=== PATIENT | male | born 1955 | race American Indian/Alaskan Native ===

== ENCOUNTER 2017-07-08 16:38 | Inpatient (IN) | payer OTHER ==
[2017-07-08] MEDS ORDERED: NACL 0.9% 500 ML 500 ML IV ONE (17:56)
[2017-07-08] MEDS ORDERED: NACL 0.9% 1000 ML 1,000 ML ONE (18:09)
[2017-07-08] MEDS ORDERED: VANCOMYCIN/NS 1 GM/250 ML 1 GM/250 ML BAG IV ONE (18:22)
[2017-07-08] MEDS ORDERED: ZOSYN/NS 4.5GM/100ML 4.5 GM/100 ML VIAL IV ONE (18:22)
[2017-07-08] MEDS ORDERED: NACL 0.9% 1000 ML 2,000 ML ONE (18:25)
[2017-07-08 18:31] LABS: Hematocrit 29.8 % (35.5-45.6); Hemoglobin 9.6 gm/dl (11.8-15.2); Mean Corpuscular HGB Conc 32 % (32-34); Mean Corpuscular Hemoglobin 31 pg (28-32); Mean Corpuscular Volume 95 fl (84-94); Platelet Count 334 K/mm3 (140-440); Red Blood Count 3.13 M/mm3 (3.65-5.03); Red Cell Distribution Width 14.4 % (13.2-15.2)
[2017-07-08 18:32] LABS: INR 1.3 (0.87-1.13)
[2017-07-08 18:33] LABS: Albumin 2.4 g/dL (3.9-5); Calcium 8.2 mg/dL (8.4-10.2)
--- NOTE | 2017-07-08 18:48 | Emergency Department Report ---
ED General Adult HPI - General Chief complaint: Abdominal Pain Stated complaint: POST OP PAIN Time Seen by Provider: 07/08/17 18:22 Source: patient, EMS Mode of arrival: Stretcher Limitations: Physical Limitation - History of Present Illness Initial comments: Presents with abdominal pain and fecal drainage from the surgical wound. According to the patient that started earlier today. He was recently discharged from the hospital after undergoing a open laparotomy for a right inguinal hernia with small bowel obstruction. At the time of surgery, it was found that the patient had a gangrenous small bowel, which required partial small bowel resection. Patient has endorsed worsening abdominal pain. The patient is a poor historian. Severity scale (0 -10): 10 - Related Data Previous Rx's Medication Instructions Recorded Last Taken Type Cephalexin [Keflex] 500 mg PO Q12HR #6 cap 07/07/17 Unknown Rx Nicotine [Habitrol] 14 mg TD QDAY #30 patch 07/07/17 Unknown Rx oxyCODONE /ACETAMINOPHEN [Percocet 1 tab PO Q12H PRN #6 tablet 07/07/17 Unknown Rx 5/325] Allergies Allergy/AdvReac Type Severity Reaction Status Date / Time No Known Allergies Allergy Unverified 06/29/17 14:29 ED Review of Systems ROS: Stated complaint: POST OP PAIN Other details as noted in HPI Comment: All other systems reviewed and negative Constitutional: malaise, weakness Gastrointestinal: abdominal pain, nausea, vomiting ED Past Medical Hx - Past Medical History Hx Hypertension: No Hx Diabetes: No Hx Arthritis: No - Surgical History Additional Surgical History: Abd surgery - Social History Smoking Status: Former Smoker Substance Use Type: None - Medications Home Medications: Home Medications Medication Instructions Recorded Confirmed Last Taken Type Cephalexin [Keflex] 500 mg PO Q12HR #6 cap 07/07/17 Unknown Rx Nicotine [Habitrol] 14 mg TD QDAY #30 patch 07/07/17 Unknown Rx oxyCODONE /ACETAMINOPHEN [Percocet 1 tab PO Q12H PRN #6 tablet 07/07/17 Unknown Rx 5/325] ED Physical Exam - General Limitations: Physical Limitation General appearance: alert, in no apparent distress - Head Head exam: Present: atraumatic, normocephalic - Eye Eye exam: Present: normal appearance - ENT ENT exam: Present: mucous membranes moist - Neck Neck exam: Present: normal inspection - Respiratory Respiratory exam: Present: normal lung sounds bilaterally. Absent: respiratory distress - Cardiovascular Cardiovascular Exam: Present: regular rate, normal rhythm. Absent: systolic murmur, diastolic murmur, rubs, gallop - GI/Abdominal GI/Abdominal exam: Present: soft, distended, tenderness (multiple retention sutures in place. Fecal drainage come from inferior laparotomy site. Rt inguinal /testicular swelling with tenderness) - Rectal Rectal exam: Present: deferred - exam: Present: testicular tenderness, scrotal swelling, circumcision - Extremities Exam Extremities exam: Present: normal inspection - Back Exam Back exam: Present: normal inspection - Neurological Exam Neurological exam: Present: alert, oriented X3 - Psychiatric Psychiatric exam: Present: normal affect, normal mood - Skin Skin exam: Present: warm, dry, intact, normal color. Absent: rash ED Course Vital Signs 07/08/17 07/08/17 07/08/17 17:33 17:45 17:46 Temperature 97.8 F Pulse Rate 126 H 130 H Respiratory 21 27 H 26 H Rate Blood Pressure 81/53 86/49 Blood Pressure 81/53 [Right] O2 Sat by Pulse 99 Oximetry 07/08/17 07/08/17 07/08/17 18:49 18:55 19:55 Temperature Pulse Rate 112 H 107 H Respiratory 26 H Rate Blood Pressure Blood Pressure 92/57 82/55 [Right] O2 Sat by Pulse 100 Oximetry 07/08/17 07/08/17 07/08/17 20:55 21:55 22:55 Temperature 98.5 F Pulse Rate 106 H 107 H 109 H Respiratory 20 Rate Blood Pressure Blood Pressure 95/55 92/43 84/42 [Right] O2 Sat by Pulse 99 Oximetry ED Medical Decision Making - Lab Data Result diagrams: 07/08/17 18:05 07/08/17 18:05 - Radiology Data Radiology results: report reviewed, image reviewed - Medical Decision Making 61-year-old male with recent abdominal surgery but presents to the ER with abdominal pain and wound drainage. Patient's hypertensive on presentation with tachycardia. Likely is septic from a severe wound infection. Due to the feculent drainage from surgical wound, I'm concerned for a bowel perforation. He was given IVF/ABX. Lab work shows elevated white count 60. CT shows concerns for large pelvic abscess versus unopacified bowel. I believe this to be an abscess given the patient's septic presentation and white count of 60. I talked with Dr. Lopez, who recommended antibiotics, resuscitation, and admission to the ICU for further management. I talked to the hospitalist who wanted the surgeon to come in urgently see the patient. Dr. Lopez mentioned since the patient is stable at this time, he does not see a need to come in emergently. On re-evaluation, patient was resting comfortably with an improving heart rate. He will be admitted for further management. He remained hemodynamically stable while in the ER. He was given thorazine for his hiccups. Problem list: severe sepsis, pelvic abscess, leukocytosis, metabolic acidosis, dehydration, hiccups. - Differential Diagnosis sepsis, bowel perforation vs obstruction, cellulitis, abscess Critical Care Time: Yes Critical care attestation.: If time is entered above; I have spent that time in minutes in the direct care of this critically ill patient, excluding procedure time. Critical Care Time: 62 ED Disposition Clinical Impression: Severe sepsis, Post-operative complication, Intra-abdominal abscess post- procedure Disposition: [id number] OP ADMIT IP TO THIS HOSP Is pt being admited?: Yes Does the pt Need Aspirin: No Condition: Stable
--- NOTE | 2017-07-08 19:03 | XRay Report ---
FINAL REPORT PROCEDURE: Chest. TECHNIQUE: Portable AP view. HISTORY: Possible sepsis. COMPARISON: Chest 07/02/2017. FINDINGS: The heart and mediastinum appear normal. The lungs are clear and well expanded. There are no pleural effusions. The soft tissues are unremarkable. There is an old fracture of the right 4th rib. IMPRESSION: No evidence of acute cardiopulmonary disease.
[2017-07-08 19:43] LABS: Band Neutrophils # (Manual) 13.8 K/mm3; Basophils % (Manual) 0 % (0.0-1.8); Eosinophils % (Manual) 0 % (0.0-4.3); Monocytes % (Manual) 2.5 % (0.0-7.3); Total Cells Counted 200
[2017-07-08 19:44] LABS: Hypochromasia 1+; Ovalocytes Few; Platelet Estimate Consistent w Auto
--- NOTE | 2017-07-08 20:47 | Cat Scan Report ---
FINAL REPORT PROCEDURE: CT abdomen and pelvis with contrast. TECHNIQUE: Computerized axial tomography of the abdomen and pelvis was performed after the IV injection of iodinated nonionic contrast. HISTORY: Abdominal pain with fecal discharge through surgical wound. COMPARISON: CT abdomen and pelvis 06/30/2017. FINDINGS: The lung bases are clear. There are no pleural effusions. The heart size is normal. The liver, pancreas and spleen appear normal. The gallbladder is present. The adrenal glands are not enlarged. Both kidneys appear normal in size and configuration. The abdominal aorta has a normal caliber. There is no retroperitoneal adenopathy. The patient has had interval abdominal surgery. There are new midline and right lower quadrant oblique skin glo. There is still a large right inguinal canal hernia extending into the scrotum. There is no definite intestinal obstruction. Oral contrast was not given. This makes evaluation of fluid in the pelvis difficult. There are new intestinal anastomotic glo in the pelvis. There is a large fluid and air containing collection superior to the bladder. This is close to surgical glo. I am uncertain whether this represents nonopacified bowel or if this might represent a large pelvic abscess. Clinical correlation or repeat imaging following adequate oral contrast administration is suggested. There is a very tiny amount of pneumoperitoneum present which may simply represent recent surgery. The bladder, seminal vesicles and prostate are unremarkable. The regional skeleton appears intact. IMPRESSION: Continued or recurrent large right inguinal canal hernia extending into the scrotum. Possible large pelvic abscess versus unopacified bowel loop.
[2017-07-08] MEDS ORDERED: THORAZINE 25 MG in NACL 0.9% 50 ML IV ONE (21:08)
[2017-07-08] MEDS ORDERED: NACL 0.9% 100 ML ONE (21:23)
[2017-07-08] MEDS ORDERED: THORAZINE ONE (21:23)
[2017-07-08] MEDS ORDERED: NACL 0.9% 1000 ML 1,000 ML IV SCH (23:00)
[2017-07-08] MEDS ORDERED: SODIUM CHLORIDE FLUSH SYRINGE 10 ML IV PRN (23:08)
[2017-07-08] MEDS ORDERED: NACL 0.9% 1000 ML 1,000 ML IV ONE (23:24)
--- NOTE | 2017-07-08 23:32 | History and Physical Report ---
History of Present Illness Date of examination: 07/08/17 Chief complaint: "my wound opened up" History of present illness: Patient is a 61 year old -[place] male who presented to the ED on account of foul smelling drainage from his surgical wound on his abdomen. The patient was discharged from the hospital yesterday after undergoing open laparotomy for a right inguinal hernia with small bowel obstruction. At the time of surgery, it was found that the patient had a gangrenous small bowel, for which he underwent partial small bowel resection. He has associated generalized abdominal pain and generalized weakness. He denies nausea, vomiting , constipation or diarrhea. No fever, chills, chest pain, shortness of breath or palpitations. Past History Past Medical History: other (right inguinal hernia with small bowel obstruction) Past Surgical History: Other (recent open laparotomy with partial small bowel resection) Social history: smoking (ex-smoker for 40 years, quit 1 week ago. He denies alcohol or illicit drug use) Family history: other (reviewed and noncontributory) Medications and Allergies Allergies Allergy/AdvReac Type Severity Reaction Status Date / Time No Known Allergies Allergy Unverified 06/29/17 14:29 Home Medications Medication Instructions Recorded Confirmed Last Taken Type Cephalexin [Keflex] 500 mg PO Q12HR #6 cap 07/07/17 Unknown Rx Nicotine [Habitrol] 14 mg TD QDAY #30 patch 07/07/17 Unknown Rx oxyCODONE /ACETAMINOPHEN [Percocet 1 tab PO Q12H PRN #6 tablet 07/07/17 Unknown Rx 5/325] Active Meds: Active Medications Sodium Chloride (Nacl 0.9% 1000 Ml) 1,000 mls @ 125 mls/hr IV DIRECT RADHA Last Admin: 07/08/17 23:18 Dose: 125 mls/hr Metronidazole (Flagyl 500 Mg/100 Ml) 500 mg in 100 mls @ 100 mls/hr IV Q8H RADHA Sodium Chloride (Nacl 0.9% 1000 Ml) 1,000 mls @ 999 mls/hr IV BOLUS ONE Stop: 07/09/17 00:24 Cefepime HCl 2 gm/ Sodium (Chloride) 20 mls @ 2 mls/min IV Q24HR RADHA Sodium Chloride (Sodium Chloride Flush Syringe 10 Ml) 10 ml IV BID RADHA Sodium Chloride (Sodium Chloride Flush Syringe 10 Ml) 10 ml IV PRN PRN PRN Reason: LINE FLUSH Vancomycin HCl (Vancomycin Pharmacy To Dose) 1 each IV PKCONSULT RADHA; Protocol Review of Systems All systems: negative (except as documented in the HPI, all other systems were reviewed and negative) Exam - Constitutional Vitals: Temp Pulse Resp BP Pulse Ox 98.5 F 109 H 20 84/42 99 07/08/17 22:55 07/08/17 22:55 07/08/17 22:55 07/08/17 22:55 07/08/17 22:55 General appearance: Present: no acute distress, other (ill looking) - EENT Eyes: Present: PERRL, EOM intact ENT: hearing intact, clear oral mucosa - Neck Neck: Present: supple, normal ROM - Respiratory Respiratory effort: normal Respiratory: bilateral: CTA - Cardiovascular Rhythm: other (tachycardia with regular rhythm) Heart Sounds: Present: S1 & S2. Absent: rub, click - Extremities Extremities: pulses symmetrical, No edema Peripheral Pulses: within normal limits - Abdominal General gastrointestinal: Present: soft, tender (generalized), distended, normal bowel sounds, other (foul smelling discharge from the surgical site) Male genitourinary: Present: scrotal edema - Integumentary Integumentary: Present: erythema (with drainage from abdominal surgical wound) - Musculoskeletal Musculoskeletal: other (generalized weakness) - Psychiatric Psychiatric: appropriate mood/affect, intact judgment & insight - Neurologic Neurologic: CNII-XII intact Results - Labs CBC & Chem 7: 07/08/17 18:05 07/08/17 18:05 Labs: Laboratory Last Values WBC 58.7 K/mm3 (4.5-11.0) H* 07/08/17 18:05 RBC 3.13 M/mm3 (3.65-5.03) L 07/08/17 18:05 Hgb 9.6 gm/dl (11.8-15.2) L 07/08/17 18:05 Hct 29.8 % (35.5-45.6) L 07/08/17 18:05 MCV 95 fl (84-94) H 07/08/17 18:05 MCH 31 pg (28-32) 07/08/17 18:05 MCHC 32 % (32-34) 07/08/17 18:05 RDW 14.4 % (13.2-15.2) 07/08/17 18:05 Plt Count 334 K/mm3 (140-440) 07/08/17 18:05 Add Manual Diff Complete 07/08/17 18:05 Total Counted 200 07/08/17 18:05 Seg Neutrophils % Eligibility Worker 07/08/17 18:05 Seg Neuts % (Manual) 70.5 % (40.0-70.0) H 07/08/17 18:05 Band Neutrophils % 23.5 % 07/08/17 18:05 Lymphocytes % (Manual) 2.5 % (13.4-35.0) L 07/08/17 18:05 Reactive Lymphs % (Man) 0 % 07/08/17 18:05 Monocytes % (Manual) 2.5 % (0.0-7.3) 07/08/17 18:05 Eosinophils % (Manual) 0 % (0.0-4.3) 07/08/17 18:05 Basophils % (Manual) 0 % (0.0-1.8) 07/08/17 18:05 Metamyelocytes % 1.0 % 07/08/17 18:05 Myelocytes % 0 % 07/08/17 18:05 Promyelocytes % 0 % 07/08/17 18:05 Blast Cells % 0 % 07/08/17 18:05 Nucleated RBC % Not Reportable 07/08/17 18:05 Seg Neutrophils # Man 41.4 K/mm3 (1.8-7.7) H 07/08/17 18:05 Band Neutrophils # 13.8 K/mm3 07/08/17 18:05 Lymphocytes # (Manual) 1.5 K/mm3 (1.2-5.4) 07/08/17 18:05 Abs React Lymphs (Man) 0.0 K/mm3 07/08/17 18:05 Monocytes # (Manual) 1.5 K/mm3 (0.0-0.8) H 07/08/17 18:05 Eosinophils # (Manual) 0.0 K/mm3 (0.0-0.4) 07/08/17 18:05 Basophils # (Manual) 0.0 K/mm3 (0.0-0.1) 07/08/17 18:05 Metamyelocytes # 0.6 K/mm3 07/08/17 18:05 Myelocytes # 0.0 K/mm3 07/08/17 18:05 Promyelocytes # 0.0 K/mm3 07/08/17 18:05 Blast Cells # 0.0 K/mm3 07/08/17 18:05 WBC Morphology Not Reportable 07/08/17 18:05 Hypersegmented Neuts Not Reportable 07/08/17 18:05 Hyposegmented Neuts Not Reportable 07/08/17 18:05 Hypogranular Neuts Not Reportable 07/08/17 18:05 Smudge Cells Not Reportable 07/08/17 18:05 Toxic Granulation Not Reportable 07/08/17 18:05 Toxic Vacuolation Not Reportable 07/08/17 18:05 Dohle Bodies Not Reportable 07/08/17 18:05 Pelger-Huet Anomaly Not Reportable 07/08/17 18:05 Winter Rods Not Reportable 07/08/17 18:05 Platelet Estimate Consistent w auto 07/08/17 18:05 Clumped Platelets Not Reportable 07/08/17 18:05 Plt Clumps, EDTA Not Reportable 07/08/17 18:05 Large Platelets Not Reportable 07/08/17 18:05 Giant Platelets Not Reportable 07/08/17 18:05 Platelet Satelliting Not Reportable 07/08/17 18:05 Plt Morphology Comment Not Reportable 07/08/17 18:05 RBC Morphology Not Reportable 07/08/17 18:05 Dimorphic RBCs Not Reportable 07/08/17 18:05 Polychromasia Not Reportable 07/08/17 18:05 Hypochromasia 1+ 07/08/17 18:05 Poikilocytosis Not Reportable 07/08/17 18:05 Anisocytosis Not Reportable 07/08/17 18:05 Microcytosis Not Reportable 07/08/17 18:05 Macrocytosis Not Reportable 07/08/17 18:05 Spherocytes Not Reportable 07/08/17 18:05 Pappenheimer Bodies Not Reportable 07/08/17 18:05 Sickle Cells Not Reportable 07/08/17 18:05 Target Cells Not Reportable 07/08/17 18:05 Tear Drop Cells Not Reportable 07/08/17 18:05 Ovalocytes Few 07/08/17 18:05 Helmet Cells Not Reportable 07/08/17 18:05 [place] Bodies Not Reportable 07/08/17 18:05 [place] Rings Not Reportable 07/08/17 18:05 Rigoberto Cells Not Reportable 07/08/17 18:05 Bite Cells Not Reportable 07/08/17 18:05 Crenated Cell Not Reportable 07/08/17 18:05 Elliptocytes Not Reportable 07/08/17 18:05 Acanthocytes (Spur) Not Reportable 07/08/17 18:05 Rouleaux Not Reportable 07/08/17 18:05 Hemoglobin C Crystals Not Reportable 07/08/17 18:05 Schistocytes Not Reportable 07/08/17 18:05 Malaria parasites Not Reportable 07/08/17 18:05 Erasmo Bodies Not Reportable 07/08/17 18:05 Hem Pathologist Commnt No 07/08/17 18:05 PT 16.9 Sec. (12.2-14.9) H 07/08/17 18:05 INR 1.30 (0.87-1.13) H 07/08/17 18:05 VBG pH 7.443 (7.320-7.420) H 07/08/17 18:05 Sodium 138 mmol/L (137-145) D 07/08/17 18:05 Potassium 4.1 mmol/L (3.6-5.0) 07/08/17 18:05 Chloride 96.2 mmol/L (98-107) L 07/08/17 18:05 Carbon Dioxide 19 mmol/L (22-30) L 07/08/17 18:05 Anion Gap 27 mmol/L 07/08/17 18:05 BUN 29 mg/dL (9-20) H 07/08/17 18:05 Creatinine 1.9 mg/dL (0.8-1.5) H D 07/08/17 18:05 Estimated GFR 44 ml/min 07/08/17 18:05 BUN/Creatinine Ratio 15 % 07/08/17 18:05 Glucose 143 mg/dL (75-100) H 07/08/17 18:05 Lactic Acid 1.50 mmol/L (0.7-2.0) 07/08/17 22:35 Calcium 8.2 mg/dL (8.4-10.2) L 07/08/17 18:05 Total Bilirubin 1.40 mg/dL (0.1-1.2) H 07/08/17 18:05 AST 60 units/L (5-40) H 07/08/17 18:05 ALT 33 units/L (7-56) 07/08/17 18:05 Alkaline Phosphatase 119 units/L (35-129) 07/08/17 18:05 Total Protein 6.1 g/dL (6.3-8.2) L 07/08/17 18:05 Albumin 2.4 g/dL (3.9-5) L 07/08/17 18:05 Albumin/Globulin Ratio 0.6 % 07/08/17 18:05 - Imaging and Cardiology CT scan - abdomen: report reviewed CT scan - chest: report reviewed Assessment and Plan Assessment and plan: Postsurgical complications with pelvic abscess and wound dehiscence -Patient will be placed on IV broad-spectrum antibiotics -Will follow up blood culture results -urgent consult was placed in the ED for the surgeon Heather Howard Severe sepsis secondary to the pelvic abscess -patient placed on sepsis protocol -Will follow up blood and urine culture results. Hypotension secondary to the sepsis -Patient's blood pressure responded to IV hydration -He will be continued on maintenance IV fluid with blood pressure monitoring. Recurrent right inguinal hernia -The surgeon has been consulted. Transaminitis likely secondary to sepsis -Will continue to monitor his liver function test levels Acute kidney injury -Patient will be placed on IV fluid, will monitor his creatinine level Acute anemia -WIll monitor his H/H and transfuse as needed. Prophylaxis -DVT prophylaxis with SCD and GI prophylaxis with Protonix I spent 45 minutes providing critical care to this seriously ill patient who requires frequent reassessments of his cardiovascular status.
[2017-07-08] MEDS: FLAGYL 500 MG/100 ML 500 MG/100 ML BAG IV SCH (23:38)
[2017-07-08] MEDS ORDERED: VANCOMYCIN PHARMACY TO DOSE IV SCH (23:45)
[2017-07-09] MEDS ORDERED: NACL 0.9% 500 ML 500 ML ONE (02:50)
[2017-07-09] MEDS ORDERED: MAXIPIME/NS 2 GM/100 ML 2 GM/100 ML BAG IV SCH ×2 (06:00→10:00)
[2017-07-09 07:09] LABS: Hematocrit 25.1 % (35.5-45.6); Hemoglobin 8.2 gm/dl (11.8-15.2); Mean Corpuscular HGB Conc 33 % (32-34); Mean Corpuscular Hemoglobin 31 pg (28-32); Mean Corpuscular Volume 95 fl (84-94); Platelet Count 322 K/mm3 (140-440); Red Blood Count 2.66 M/mm3 (3.65-5.03); Red Cell Distribution Width 14.9 % (13.2-15.2)
[2017-07-09 07:23] LABS: Alanine Aminotransferase 28 units/L (7-56); Albumin 2.1 g/dL (3.9-5); BUN/Creatinine Ratio 25; Blood Urea Nitrogen 27 mg/dL (9-20); Calcium 6.9 mg/dL (8.4-10.2); Hemolysis Index 0
[2017-07-09] MEDS ORDERED: FLAGYL 500 MG/100 ML 500 MG/100 ML BAG IV ONE ×2 (07:51→15:27)
[2017-07-09] MEDS: FLAGYL 500 MG/100 ML 500 MG/100 ML BAG IV SCH ×2 (08:10→15:57)
[2017-07-09 08:30] LABS: Band Neutrophils # (Manual) 0.9 K/mm3; Basophils % (Manual) 0 % (0.0-1.8); Eosinophils % (Manual) 0 % (0.0-4.3); Monocytes % (Manual) 4.5 % (0.0-7.3); Total Cells Counted 200
[2017-07-09 08:31] LABS: Hypochromasia 1+; Ovalocytes Few; Platelet Estimate Consistent w Auto
--- NOTE | 2017-07-09 09:15 | Consultation ---
HISTORY OF PRESENT ILLNESS: This is a well-known case to me. He was in this hospital about 2 weeks ago. At that point, he came with incarcerated huge right scrotal hernia. He was taken to the operating room where he underwent exploratory laparotomy and he had about 100 cm length of intestines that showed gangrenous changes requiring resection. I repaired the hernia. I did not put a graft there. Postoperatively, the patient was doing excellent, doing fine, walking around, taking his diet and on liquids and then this was advanced to full liquids. He had good bowel movements. The man was discharged home 2 days ago to be seen in my office in 1 week and the nurse to see him every day at home. Apparently, he had some leakage from his drain site. The leakage showed questionable some fecal material. The leakage was mainly of very thin liquid and it is mainly from the area of the drain in the right lower quadrant. His wound looks okay to me. At this point, I believe with this leakage going on, we needed to have him admitted for further evaluation. He is a smoker between 1 and 2 packs a day for many, many years now. He stated that he does not take alcohol. He has no children. He is single. PHYSICAL EXAMINATION: GENERAL: A thin, slim elderly man who is in no distress. He has an IV going. He was given 4 liters of fluids this morning. His urine looks clear to me. HEAD AND NECK: Negative. CHEST: Essentially clear. CARDIOVASCULAR: Heart sounds are normal. ABDOMEN: Flat, soft, benign, very minimal tenderness, nicely healing scar with retention sutures, an area of leak that is about 1 cm located in the right lower quadrant, dislocation of the drain that he had. The leakage as mentioned above showed some questionable fecal material. There is no bleeding there. He has a hernia on the right side. This is easily reducible. EXTREMITIES: Showed no evidence of edema. IMPRESSION AND PLAN: A leak status post resection of gangrenous bowel, status post repair of right scrotal hernia, chronic obstructive pulmonary disease, severe, from smoking. I believe this needed to be addressed to have him admitted for further evaluation. We will have dietitian to see him and we will have a bag on that area and we will go with him very slowly over the coming 2 or 3 days. His CBC was high. When he came in, it was 50,000. We are waiting on the results from today. Today the white count is 43, hemoglobin is 8.2, and the platelets are 322. The potassium is 4. BUN is 27. Lactic acid today is within normal from yesterday late, the bilirubin is 0.5, and the albumin is 2.1. This man needs good nutrition. We are going to start him on TPN and we will go from there. JOB# [id number] SOPHIE/JARROD
[2017-07-09] MEDS ORDERED: PROTONIX IV SCH (10:00)
[2017-07-09] MEDS ORDERED: MAXIPIME 2 GM in NACL 0.9% 20 ML IV SCH (10:00)
--- NOTE | 2017-07-09 10:22 | Progress Note ---
Subjective Narrative: i read the CT with Dr Murrell will obtain Fistulogram Objective Vital Signs - 12hr 07/08/17 07/08/17 07/08/17 22:30 22:45 22:55 Temperature 98.5 F Pulse Rate 120 H 116 H 109 H Respiratory 26 H 19 20 Rate Blood Pressure 99/52 96/53 Blood Pressure 84/42 [Right] O2 Sat by Pulse 98 98 99 Oximetry 07/08/17 07/08/17 07/08/17 23:00 23:15 23:31 Temperature Pulse Rate 105 H 104 H 118 H Respiratory 23 21 22 Rate Blood Pressure 84/42 92/44 115/59 Blood Pressure [Right] O2 Sat by Pulse 98 99 Oximetry 07/08/17 07/09/17 07/09/17 23:45 00:00 00:15 Temperature Pulse Rate 99 H 114 H 105 H Respiratory 19 15 19 Rate Blood Pressure 94/50 111/59 98/48 Blood Pressure 111/59 [Right] O2 Sat by Pulse 100 100 Oximetry 07/09/17 07/09/17 07/09/17 00:30 00:45 01:00 Temperature Pulse Rate 111 H 107 H 100 H Respiratory 19 22 19 Rate Blood Pressure 114/51 123/61 120/54 Blood Pressure 120/54 [Right] O2 Sat by Pulse 99 100 Oximetry 07/09/17 07/09/17 07/09/17 01:15 01:30 01:45 Temperature Pulse Rate 105 H 109 H 114 H Respiratory 21 21 20 Rate Blood Pressure 111/54 110/58 103/57 Blood Pressure [Right] O2 Sat by Pulse 99 Oximetry 07/09/17 07/09/17 07/09/17 02:00 02:15 02:31 Temperature Pulse Rate 117 H 123 H 118 H Respiratory 20 23 15 Rate Blood Pressure 108/48 116/66 98/39 Blood Pressure 107/56 [Right] O2 Sat by Pulse 99 98 100 Oximetry 07/09/17 07/09/17 07/09/17 02:45 03:00 03:15 Temperature Pulse Rate 113 H 115 H 113 H Respiratory 25 H 18 28 H Rate Blood Pressure 107/50 89/53 94/46 Blood Pressure 89/53 [Right] O2 Sat by Pulse 99 99 98 Oximetry 07/09/17 07/09/17 07/09/17 03:30 04:00 04:30 Temperature Pulse Rate 114 H 108 H 119 H Respiratory 24 21 26 H Rate Blood Pressure 92/47 96/50 110/55 Blood Pressure [Right] O2 Sat by Pulse 98 99 100 Oximetry 07/09/17 07/09/17 07/09/17 05:00 05:30 06:00 Temperature Pulse Rate 110 H 123 H 117 H Respiratory 26 H 25 H 33 H Rate Blood Pressure 101/47 114/54 110/54 Blood Pressure [Right] O2 Sat by Pulse 99 98 98 Oximetry 07/09/17 07/09/17 07/09/17 06:30 07:00 07:30 Temperature Pulse Rate 106 H 124 H 117 H Respiratory 23 23 31 H Rate Blood Pressure 100/45 122/51 117/59 Blood Pressure [Right] O2 Sat by Pulse 99 98 Oximetry - Labs 07/09/17 06:57 07/09/17 06:57 Diabetes panel 07/08/17 07/09/17 Range/Units 18:05 06:57 Sodium 138 D 143 (137-145) mmol/L Potassium 4.1 4.0 (3.6-5.0) mmol/L Chloride 96.2 L 110.5 H (98-107) mmol/L Carbon Dioxide 19 L 21 L (22-30) mmol/L BUN 29 H 27 H (9-20) mg/dL Creatinine 1.9 H D 1.1 (0.8-1.5) mg/dL Glucose 143 H 109 H (75-100) mg/dL Calcium 8.2 L 6.9 L D (8.4-10.2) mg/dL AST 60 H 37 (5-40) units/L ALT 33 28 (7-56) units/L Alkaline Phosphatase 119 83 (35-129) units/L Total Protein 6.1 L 5.1 L (6.3-8.2) g/dL Albumin 2.4 L 2.1 L (3.9-5) g/dL Calcium panel 07/08/17 07/09/17 Range/Units 18:05 06:57 Calcium 8.2 L 6.9 L D (8.4-10.2) mg/dL Albumin 2.4 L 2.1 L (3.9-5) g/dL Pituitary panel 07/08/17 07/09/17 Range/Units 18:05 06:57 Sodium 138 D 143 (137-145) mmol/L Potassium 4.1 4.0 (3.6-5.0) mmol/L Chloride 96.2 L 110.5 H (98-107) mmol/L Carbon Dioxide 19 L 21 L (22-30) mmol/L BUN 29 H 27 H (9-20) mg/dL Creatinine 1.9 H D 1.1 (0.8-1.5) mg/dL Glucose 143 H 109 H (75-100) mg/dL Calcium 8.2 L 6.9 L D (8.4-10.2) mg/dL Adrenal panel 07/08/17 07/09/17 Range/Units 18:05 06:57 Sodium 138 D 143 (137-145) mmol/L Potassium 4.1 4.0 (3.6-5.0) mmol/L Chloride 96.2 L 110.5 H (98-107) mmol/L Carbon Dioxide 19 L 21 L (22-30) mmol/L BUN 29 H 27 H (9-20) mg/dL Creatinine 1.9 H D 1.1 (0.8-1.5) mg/dL Glucose 143 H 109 H (75-100) mg/dL Calcium 8.2 L 6.9 L D (8.4-10.2) mg/dL Total Bilirubin 1.40 H 0.50 (0.1-1.2) mg/dL AST 60 H 37 (5-40) units/L ALT 33 28 (7-56) units/L Alkaline Phosphatase 119 83 (35-129) units/L Total Protein 6.1 L 5.1 L (6.3-8.2) g/dL Albumin 2.4 L 2.1 L (3.9-5) g/dL
[2017-07-09] MEDS ORDERED: D5W/NS W/KCL 20MEQ 20 MEQ/1,000 ML BAG IV SCH (11:00)
[2017-07-09] MEDS: SODIUM CHLORIDE FLUSH SYRINGE 10 ML IV SCH ×2 (11:00→22:00)
[2017-07-09] MEDS ORDERED: MORPHINE ONE ×3 (11:03→19:01)
[2017-07-09] MEDS: MORPHINE IV PRN ×4 (11:15→22:53)
[2017-07-09] MEDS ORDERED: MAGNESIUM SULFATE IV ONE (11:42)
[2017-07-09] MEDS ORDERED: D50W (25GM) Syringe IV ONE (12:15)
[2017-07-09] MEDS: HABITROL TD SCH (12:30)
--- NOTE | 2017-07-09 12:33 | Consultation ---
History of Present Illness Consult date: 07/09/17 Requesting physician: FLORA CALLES Reason for consult: other (Severe Sepsis; Intra-Abdominal Abscess; Gram negative bacteremia) History of present illness: PULMONARY/CCM CONSULT NOTE (Full dictation # [id number]) Please see dictated notes for full details Past History Past Medical History: other (right inguinal hernia with small bowel obstruction) Past Surgical History: Other (recent open laparotomy with partial small bowel resection) Social history: smoking (ex-smoker for 40 years, quit 1 week ago. He denies alcohol or illicit drug use) Family history: other (reviewed and noncontributory) Medications and Allergies Allergies Allergy/AdvReac Type Severity Reaction Status Date / Time No Known Allergies Allergy Unverified 06/29/17 14:29 Home Medications Medication Instructions Recorded Confirmed Last Taken Type Cephalexin [Keflex] 500 mg PO Q12HR #6 cap 07/07/17 07/09/17 07/08/17 Rx Nicotine [Habitrol] 14 mg TD QDAY #30 patch 07/07/17 07/09/17 Unknown Rx oxyCODONE /ACETAMINOPHEN [Percocet 1 tab PO Q12H PRN #6 tablet 07/07/1707/08/17 Rx 5/325] Active Meds: Active Medications Metronidazole (Flagyl 500 Mg/100 Ml) 500 mg in 100 mls @ 100 mls/hr IV Q8H [facility] Last Infusion: 07/09/17 09:10 Dose: Infused Cefepime HCl 2 gm/ Sodium (Chloride) 20 mls @ 2 mls/min IV Q24HR [facility] Vancomycin HCl (Vancomycin/Ns 1 Gm/250 Ml) 1 gm in 250 mls @ 166.667 mls/hr IV Q24H [facility] Potassium Chloride/Dextrose/Sod Cl (D5w/Ns W/Kcl 20meq) 20 meq in 1,000 mls @ 125 mls/hr IV DIRECT [facility] Magnesium Sulfate 1 gm/ Sodium (Chloride) 52 mls @ 52 mls/hr IV ONCE ONE Stop: 07/09/17 13:59 Morphine Sulfate (Morphine) 2 mg IV Q3H PRN PRN Reason: Pain, Moderate (4-6) Last Admin: 07/09/17 11:15 Dose: 2 mg Nicotine (Habitrol) 14 mg TD QDAY [facility] Pantoprazole Sodium (Protonix) 40 mg IV QDAY [facility] Sodium Chloride (Sodium Chloride Flush Syringe 10 Ml) 10 ml IV BID [facility] Sodium Chloride (Sodium Chloride Flush Syringe 10 Ml) 10 ml IV PRN PRN PRN Reason: LINE FLUSH Vancomycin HCl (Vancomycin Pharmacy To Dose) 1 each IV PKCONSULT [facility]; Protocol Physical Examination Vital signs: Vital Signs Resp 21 07/08/17 17:33 Results - Laboratory Findings CBC and BMP: 07/10/17 04:16 07/10/17 04:16 PT/INR, D-dimer PT 16.9 Sec. (12.2-14.9) H 07/08/17 18:05 INR 1.30 (0.87-1.13) H 07/08/17 18:05 Abnormal lab findings: Abnormal Labs 07/08/17 07/08/17 07/08/17 18:05 18:05 18:05 WBC 58.7 H* RBC 3.13 L Hgb 9.6 L Hct 29.8 L MCV 95 H Seg Neuts % (Manual) 70.5 H Lymphocytes % (Manual) 2.5 L Seg Neutrophils # Man 41.4 H Lymphocytes # (Manual) Monocytes # (Manual) 1.5 H PT 16.9 H INR 1.30 H VBG pH Chloride 96.2 L Carbon Dioxide 19 L BUN 29 H Creatinine 1.9 H D Glucose 143 H Lactic Acid Calcium 8.2 L Magnesium Total Bilirubin 1.40 H AST 60 H Total Protein 6.1 L Albumin 2.4 L 07/08/17 07/08/17 07/08/17 18:05 18:05 18:41 WBC RBC Hgb Hct MCV Seg Neuts % (Manual) Lymphocytes % (Manual) Seg Neutrophils # Man Lymphocytes # (Manual) Monocytes # (Manual) PT INR VBG pH 7.443 H Chloride Carbon Dioxide BUN Creatinine Glucose Lactic Acid 6.50 H* 6.50 H* Calcium Magnesium Total Bilirubin AST Total Protein Albumin 07/08/17 07/09/17 07/09/17 20:10 06:57 06:57 WBC 43.0 H* RBC 2.66 L Hgb 8.2 L Hct 25.1 L MCV 95 H Seg Neuts % (Manual) 91.5 H Lymphocytes % (Manual) 2.0 L Seg Neutrophils # Man 39.3 H Lymphocytes # (Manual) 0.9 L Monocytes # (Manual) 1.9 H PT INR VBG pH Chloride 110.5 H Carbon Dioxide 21 L BUN 27 H Creatinine Glucose 109 H Lactic Acid 3.80 H* Calcium 6.9 L D Magnesium 1.60 L Total Bilirubin AST Total Protein 5.1 L Albumin 2.1 L
[2017-07-09] MEDS ORDERED: MAGNESIUM SULFATE 1 GM in NACL 0.9% 50 ML IV ONE (13:00)
--- NOTE | 2017-07-09 14:30 | Consultation ---
History of Present Illness - Reason for Consult Consult date: 07/09/17 - History of Present Illness 1-year-old man with no medical power of trial attorney was emergency room because he states that his hernia popped and he needs help. He stated that he was eating ground beef yesterday when he choked, he started coughing really hard and his hernia popped out. He started having lower abdominal pain which she describes a dull pain, constant, intensity, with 10, no radiation, he cannot identify exacerbating or relieving factors. He admits to nausea vomiting Review of systems iccups; IV Thorazine as needed, supportive care --Small bowel gangrene; secondary to incarcerated inguinal hernia Status post bowel resection, hernia repair Patient passed flatus, had bowel movement Clear liquid diet and advance as tolerated --Acute respiratory failure; postoperative, s/p extubation --Acute kidney injury; resolved --Hypertension; continue current antihypertensives and when necessary medications --Severe protein calorie malnutrition; supportive care, consider TPN --DVT prophylaxis; SCDs, Lovenox --Ongoing tobacco use; smoking cessation counseling done, advised nicotine patch Plan of care reviewed with the patient and family members as well as the nurse Incentive spirometry Physical therapy occupational therapy DC Planning per case management when medically stable Past History Past Medical History: other (right inguinal hernia with small bowel obstruction) Past Surgical History: Other (recent open laparotomy with partial small bowel resection) Social history: smoking (ex-smoker for 40 years, quit 1 week ago. He denies alcohol or illicit drug use) Family history: other (reviewed and noncontributory) Medications and Allergies Allergies Allergy/AdvReac Type Severity Reaction Status Date / Time No Known Allergies Allergy Unverified 06/29/17 14:29 Home Medications Medication Instructions Recorded Confirmed Last Taken Type Cephalexin [Keflex] 500 mg PO Q12HR #6 cap 07/07/17 07/09/17 07/08/17 Rx Nicotine [Habitrol] 14 mg TD QDAY #30 patch 07/07/17 07/09/17 Unknown Rx oxyCODONE /ACETAMINOPHEN [Percocet 1 tab PO Q12H PRN #6 tablet 07/07/1707/08/17 Rx 5/325] Active Meds: Active Medications Famotidine (Pepcid) 20 mg IV BID [facility] Metronidazole (Flagyl 500 Mg/100 Ml) 500 mg in 100 mls @ 100 mls/hr IV Q8H [facility] Last Infusion: 07/09/17 09:10 Dose: Infused Vancomycin HCl (Vancomycin/Ns 1 Gm/250 Ml) 1 gm in 250 mls @ 166.667 mls/hr IV Q24H [facility] Potassium Chloride/Dextrose/Sod Cl (D5w/Ns W/Kcl 20meq) 20 meq in 1,000 mls @ 125 mls/hr IV DIRECT [facility] Stop: 07/09/17 21:00 Last Admin: 07/09/17 12:15 Dose: 125 mls/hr Cefepime HCl 2 gm/ Sodium (Chloride) 20 mls @ 2 mls/min IV Q8HR [facility] Amino Acids/Electrolytes/Dextrose (Tpn Adult) 2,400 mls @ 100 mls/hr IV DAILY@ 1999 [facility]; Protocol Stop: 07/10/17 19:59 Morphine Sulfate (Morphine) 2 mg IV Q3H PRN PRN Reason: Pain, Moderate (4-6) Last Admin: 07/09/17 11:15 Dose: 2 mg Nicotine (Habitrol) 14 mg TD QDAY [facility] Last Admin: 07/09/17 12:30 Dose: 14 mg Sodium Chloride (Sodium Chloride Flush Syringe 10 Ml) 10 ml IV BID [facility] Last Admin: 07/09/17 11:00 Dose: 10 ml Sodium Chloride (Sodium Chloride Flush Syringe 10 Ml) 10 ml IV PRN PRN PRN Reason: LINE FLUSH Vancomycin HCl (Vancomycin Pharmacy To Dose) 1 each IV PKCONSULT [facility]; Protocol Physical Examination - Constitutional Vitals: Vital Signs Temp Pulse Resp BP Pulse Ox 99.6 F 120 H 21 145/58 98 07/09/17 13:00 07/09/17 13:00 07/09/17 13:00 07/09/17 13:00 07/09/17 13:00 Temperature -Last 24 Hours Temperature 99.6 F Temperature 99.6 F Temperature 99.3 F Temperature 98.5 F Temperature 97.8 F Results - Labs CBC & Chem 7: 07/09/17 06:57 07/09/17 06:57 Labs: Abnormal lab results 07/08/17 07/08/17 07/08/17 Range/Units 18:05 18:05 18:05 WBC 58.7 H* (4.5-11.0) K/mm3 RBC 3.13 L (3.65-5.03) M/mm3 Hgb 9.6 L (11.8-15.2) gm/dl Hct 29.8 L (35.5-45.6) % MCV 95 H (84-94) fl Seg Neuts % (Manual) 70.5 H (40.0-70.0) % Lymphocytes % (Manual) 2.5 L (13.4-35.0) % Seg Neutrophils # Man 41.4 H (1.8-7.7) K/mm3 Lymphocytes # (Manual) (1.2-5.4) K/mm3 Monocytes # (Manual) 1.5 H (0.0-0.8) K/mm3 PT 16.9 H (12.2-14.9) Sec. INR 1.30 H (0.87-1.13) VBG pH (7.320-7.420) Chloride 96.2 L (98-107) mmol/L Carbon Dioxide 19 L (22-30) mmol/L BUN 29 H (9-20) mg/dL Creatinine 1.9 H D (0.8-1.5) mg/dL Glucose 143 H (75-100) mg/dL POC Glucose (70-105) Lactic Acid (0.7-2.0) mmol/L Calcium 8.2 L (8.4-10.2) mg/dL Magnesium (1.7-2.3) mg/dL Total Bilirubin 1.40 H (0.1-1.2) mg/dL AST 60 H (5-40) units/L Total Protein 6.1 L (6.3-8.2) g/dL Albumin 2.4 L (3.9-5) g/dL 07/08/17 07/08/17 07/08/17 Range/Units 18:05 18:05 18:41 WBC (4.5-11.0) K/mm3 RBC (3.65-5.03) M/mm3 Hgb (11.8-15.2) gm/dl Hct (35.5-45.6) % MCV (84-94) fl Seg Neuts % (Manual) (40.0-70.0) % Lymphocytes % (Manual) (13.4-35.0) % Seg Neutrophils # Man (1.8-7.7) K/mm3 Lymphocytes # (Manual) (1.2-5.4) K/mm3 Monocytes # (Manual) (0.0-0.8) K/mm3 PT (12.2-14.9) Sec. INR (0.87-1.13) VBG pH 7.443 H (7.320-7.420) Chloride (98-107) mmol/L Carbon Dioxide (22-30) mmol/L BUN (9-20) mg/dL Creatinine (0.8-1.5) mg/dL Glucose (75-100) mg/dL POC Glucose (70-105) Lactic Acid 6.50 H* 6.50 H* (0.7-2.0) mmol/L Calcium (8.4-10.2) mg/dL Magnesium (1.7-2.3) mg/dL Total Bilirubin (0.1-1.2) mg/dL AST (5-40) units/L Total Protein (6.3-8.2) g/dL Albumin (3.9-5) g/dL 07/08/17 07/09/17 07/09/17 Range/Units 20:10 06:57 06:57 WBC 43.0 H* (4.5-11.0) K/mm3 RBC 2.66 L (3.65-5.03) M/mm3 Hgb 8.2 L (11.8-15.2) gm/dl Hct 25.1 L (35.5-45.6) % MCV 95 H (84-94) fl Seg Neuts % (Manual) 91.5 H (40.0-70.0) % Lymphocytes % (Manual) 2.0 L (13.4-35.0) % Seg Neutrophils # Man 39.3 H (1.8-7.7) K/mm3 Lymphocytes # (Manual) 0.9 L (1.2-5.4) K/mm3 Monocytes # (Manual) 1.9 H (0.0-0.8) K/mm3 PT (12.2-14.9) Sec. INR (0.87-1.13) VBG pH (7.320-7.420) Chloride 110.5 H (98-107) mmol/L Carbon Dioxide 21 L (22-30) mmol/L BUN 27 H (9-20) mg/dL Creatinine (0.8-1.5) mg/dL Glucose 109 H (75-100) mg/dL POC Glucose (70-105) Lactic Acid 3.80 H* (0.7-2.0) mmol/L Calcium 6.9 L D (8.4-10.2) mg/dL Magnesium 1.60 L (1.7-2.3) mg/dL Total Bilirubin (0.1-1.2) mg/dL AST (5-40) units/L Total Protein 5.1 L (6.3-8.2) g/dL Albumin 2.1 L (3.9-5) g/dL 07/09/17 Range/Units 13:26 WBC (4.5-11.0) K/mm3 RBC (3.65-5.03) M/mm3 Hgb (11.8-15.2) gm/dl Hct (35.5-45.6) % MCV (84-94) fl Seg Neuts % (Manual) (40.0-70.0) % Lymphocytes % (Manual) (13.4-35.0) % Seg Neutrophils # Man (1.8-7.7) K/mm3 Lymphocytes # (Manual) (1.2-5.4) K/mm3 Monocytes # (Manual) (0.0-0.8) K/mm3 PT (12.2-14.9) Sec. INR (0.87-1.13) VBG pH (7.320-7.420) Chloride (98-107) mmol/L Carbon Dioxide (22-30) mmol/L BUN (9-20) mg/dL Creatinine (0.8-1.5) mg/dL Glucose (75-100) mg/dL POC Glucose 118 H (70-105) Lactic Acid (0.7-2.0) mmol/L Calcium (8.4-10.2) mg/dL Magnesium (1.7-2.3) mg/dL Total Bilirubin (0.1-1.2) mg/dL AST (5-40) units/L Total Protein (6.3-8.2) g/dL Albumin (3.9-5) g/dL
[2017-07-09] MEDS: MAXIPIME 2 GM in NACL 0.9% 20 ML IV SCH ×2 (14:45→22:53)
--- NOTE | 2017-07-09 15:20 | Fluoroscopy Report ---
FLUOROSCOPY FISTULA/SINUS TRACT INJECTION History: Fistula. Findings: A small draining sinus was identified in the right lower quadrant abdominal wall. A small catheter was inserted into the opening and secured by balloon inflation. Approximately 25 cc of water-soluble contrast was injected. 13 fluoroscopic images were captured. The contrast agent appears to pool in the anterior abdominal wall. No communication with bowel loops is demonstrated on the given images. Impression: The sinus tract appears to communicate with a blind ending collection such as an abscess. No communication with bowel loops is appreciated.
[2017-07-09 16:58] LABS: Bilirubin,Urine NEG (Negative); Blood,Urine MOD (Negative); Color,Urine Yellow (Yellow); Mucus,Urine FEW /HPF; Urobilinogen,Urine < 2.0 mg/dL (<2.0)
--- NOTE | 2017-07-09 17:25 | Progress Note ---
Assessment and Plan Pelvic abscess and wound dehiscence - s/p recent surgery on last admission -Patient placed on IV broad-spectrum antibiotics -Will follow up blood culture results -urgent consult was placed in the ED for the surgeon Dr. Lopez, - plan for conservative Mx and fistulogram Severe sepsis secondary to the pelvic abscess -patient placed on sepsis protocol -Will follow up blood and urine culture results. Hypotension secondary to the sepsis -Patient's blood pressure responded to IV hydration -He will be continued on maintenance IV fluid with blood pressure monitoring. Recurrent right inguinal hernia -The surgeon has been consulted. Transaminitis likely secondary to sepsis -Will continue to monitor his liver function test levels Acute kidney injury -Patient will be placed on IV fluid, will monitor his creatinine level - Cr normal today Acute anemia -WIll monitor his H/H and transfuse as needed. Prophylaxis -DVT prophylaxis with SCD and GI prophylaxis with Protonix I spent 45 minutes providing critical care, discussing care with RN and GS to this seriously ill patient who requires frequent reassessments of his cardiovascular status. Physical exam: General appearance: Present: elderly male, other (ill looking) - EENT Eyes: Present: PERRL, EOM intact ENT: hearing intact, clear oral mucosa - Neck Neck: Present: supple, normal ROM - Respiratory Respiratory effort: normal Respiratory: bilateral: CTA - Cardiovascular Rhythm: other (tachycardia with regular rhythm) Heart Sounds: Present: S1 & S2. Absent: rub, click - Extremities Extremities: pulses symmetrical, No edema Peripheral Pulses: within normal limits - Abdominal General gastrointestinal: Present: soft, tender (generalized), distended, normal bowel sounds, other (foul smelling discharge from the surgical site collecting on the collectomy bag) Male genitourinary: Present: right scrotal swelling - Integumentary Integumentary: Present: erythema (with drainage from abdominal surgical wound) - Musculoskeletal Musculoskeletal: other (generalized weakness) - Psychiatric Psychiatric: appropriate mood/affect, intact judgment & insight - Neurologic Neurologic: CNII-XII intact Subjective Date of service: 07/09/17 Interval history: Pt seen and examined c/o abdominal pain and scrotal swelling discussed plan of care with GS Objective - Constitutional Vitals: Vital Signs - 12hr 07/09/17 07/09/17 07/09/17 05:30 06:00 06:30 Temperature Pulse Rate 123 H 117 H 106 H Pulse Rate [ Apical] Respiratory 25 H 33 H 23 Rate Blood Pressure 114/54 110/54 100/45 O2 Sat by Pulse 98 98 Oximetry 07/09/17 07/09/17 07/09/17 07:00 07:30 07:51 Temperature 99.3 F Pulse Rate 124 H 117 H Pulse Rate [ 120 H Apical] Respiratory 23 31 H 24 Rate Blood Pressure 122/51 117/59 O2 Sat by Pulse 99 98 98 Oximetry 07/09/17 07/09/17 07/09/17 08:00 08:31 09:00 Temperature Pulse Rate 117 H Pulse Rate [ 110 H Apical] Respiratory 26 H Rate Blood Pressure 124/60 119/59 O2 Sat by Pulse 98 99 100 Oximetry 07/09/17 07/09/17 07/09/17 09:01 09:30 10:00 Temperature Pulse Rate 107 H 111 H Pulse Rate [ Apical] Respiratory 22 21 Rate Blood Pressure 119/59 129/63 139/58 O2 Sat by Pulse 100 100 100 Oximetry 07/09/17 07/09/17 07/09/17 10:31 11:00 11:30 Temperature 99.6 F Pulse Rate 122 H 121 H 117 H Pulse Rate [ Apical] Respiratory 23 27 H 25 H Rate Blood Pressure 139/53 141/64 101/49 O2 Sat by Pulse 99 99 99 Oximetry 07/09/17 07/09/17 07/09/17 12:01 12:30 13:00 Temperature 99.6 F Pulse Rate 118 H 114 H 120 H Pulse Rate [ Apical] Respiratory 27 H 18 21 Rate Blood Pressure 120/62 133/63 145/58 O2 Sat by Pulse 98 99 98 Oximetry 07/09/17 07/09/17 07/09/17 13:31 14:00 15:31 Temperature Pulse Rate 118 H 122 H 113 H Pulse Rate [ Apical] Respiratory 20 20 16 Rate Blood Pressure 145/58 133/78 133/78 O2 Sat by Pulse 98 99 Oximetry 07/09/17 15:48 Temperature 99.7 F H Pulse Rate Pulse Rate [ Apical] Respiratory Rate Blood Pressure O2 Sat by Pulse Oximetry - Labs CBC & Chem 7: 07/09/17 06:57 07/09/17 06:57 Labs: Abnormal lab results 07/08/17 07/08/17 07/08/17 Range/Units 16:30 18:05 18:05 WBC 58.7 H* (4.5-11.0) K/mm3 RBC 3.13 L (3.65-5.03) M/mm3 Hgb 9.6 L (11.8-15.2) gm/dl Hct 29.8 L (35.5-45.6) % MCV 95 H (84-94) fl Seg Neuts % (Manual) 70.5 H (40.0-70.0) % Lymphocytes % (Manual) 2.5 L (13.4-35.0) % Seg Neutrophils # Man 41.4 H (1.8-7.7) K/mm3 Lymphocytes # (Manual) (1.2-5.4) K/mm3 Monocytes # (Manual) 1.5 H (0.0-0.8) K/mm3 PT 16.9 H (12.2-14.9) Sec. INR 1.30 H (0.87-1.13) VBG pH (7.320-7.420) Chloride (98-107) mmol/L Carbon Dioxide (22-30) mmol/L BUN (9-20) mg/dL Creatinine (0.8-1.5) mg/dL Glucose (75-100) mg/dL POC Glucose (70-105) Lactic Acid (0.7-2.0) mmol/L Calcium (8.4-10.2) mg/dL Magnesium (1.7-2.3) mg/dL Total Bilirubin (0.1-1.2) mg/dL AST (5-40) units/L Total Protein (6.3-8.2) g/dL Albumin (3.9-5) g/dL Urine WBC (Auto) 8.0 H (0.0-6.0) /HPF 07/08/1718 07/08/17 Range/Units 18:05 18:05 18:05 WBC (4.5-11.0) K/mm3 RBC (3.65-5.03) M/mm3 Hgb (11.8-15.2) gm/dl Hct (35.5-45.6) % MCV (84-94) fl Seg Neuts % (Manual) (40.0-70.0) % Lymphocytes % (Manual) (13.4-35.0) % Seg Neutrophils # Man (1.8-7.7) K/mm3 Lymphocytes # (Manual) (1.2-5.4) K/mm3 Monocytes # (Manual) (0.0-0.8) K/mm3 PT (12.2-14.9) Sec. INR (0.87-1.13) VBG pH 7.443 H (7.320-7.420) Chloride 96.2 L (98-107) mmol/L Carbon Dioxide 19 L (22-30) mmol/L BUN 29 H (9-20) mg/dL Creatinine 1.9 H D (0.8-1.5) mg/dL Glucose 143 H (75-100) mg/dL POC Glucose (70-105) Lactic Acid 6.50 H* (0.7-2.0) mmol/L Calcium 8.2 L (8.4-10.2) mg/dL Magnesium (1.7-2.3) mg/dL Total Bilirubin 1.40 H (0.1-1.2) mg/dL AST 60 H (5-40) units/L Total Protein 6.1 L (6.3-8.2) g/dL Albumin 2.4 L (3.9-5) g/dL Urine WBC (Auto) (0.0-6.0) /HPF 07/08/17 07/08/17 07/09/17 Range/Units 18:41 20:10 06:57 WBC 43.0 H* (4.5-11.0) K/mm3 RBC 2.66 L (3.65-5.03) M/mm3 Hgb 8.2 L (11.8-15.2) gm/dl Hct 25.1 L (35.5-45.6) % MCV 95 H (84-94) fl Seg Neuts % (Manual) 91.5 H (40.0-70.0) % Lymphocytes % (Manual) 2.0 L (13.4-35.0) % Seg Neutrophils # Man 39.3 H (1.8-7.7) K/mm3 Lymphocytes # (Manual) 0.9 L (1.2-5.4) K/mm3 Monocytes # (Manual) 1.9 H (0.0-0.8) K/mm3 PT (12.2-14.9) Sec. INR (0.87-1.13) VBG pH (7.320-7.420) Chloride (98-107) mmol/L Carbon Dioxide (22-30) mmol/L BUN (9-20) mg/dL Creatinine (0.8-1.5) mg/dL Glucose (75-100) mg/dL POC Glucose (70-105) Lactic Acid 6.50 H* 3.80 H* (0.7-2.0) mmol/L Calcium (8.4-10.2) mg/dL Magnesium (1.7-2.3) mg/dL Total Bilirubin (0.1-1.2) mg/dL AST (5-40) units/L Total Protein (6.3-8.2) g/dL Albumin (3.9-5) g/dL Urine WBC (Auto) (0.0-6.0) /HPF 07/09/17 07/09/17 Range/Units 06:57 13:26 WBC (4.5-11.0) K/mm3 RBC (3.65-5.03) M/mm3 Hgb (11.8-15.2) gm/dl Hct (35.5-45.6) % MCV (84-94) fl Seg Neuts % (Manual) (40.0-70.0) % Lymphocytes % (Manual) (13.4-35.0) % Seg Neutrophils # Man (1.8-7.7) K/mm3 Lymphocytes # (Manual) (1.2-5.4) K/mm3 Monocytes # (Manual) (0.0-0.8) K/mm3 PT (12.2-14.9) Sec. INR (0.87-1.13) VBG pH (7.320-7.420) Chloride 110.5 H (98-107) mmol/L Carbon Dioxide 21 L (22-30) mmol/L BUN 27 H (9-20) mg/dL Creatinine (0.8-1.5) mg/dL Glucose 109 H (75-100) mg/dL POC Glucose 118 H (70-105) Lactic Acid (0.7-2.0) mmol/L Calcium 6.9 L D (8.4-10.2) mg/dL Magnesium 1.60 L (1.7-2.3) mg/dL Total Bilirubin (0.1-1.2) mg/dL AST (5-40) units/L Total Protein 5.1 L (6.3-8.2) g/dL Albumin 2.1 L (3.9-5) g/dL Urine WBC (Auto) (0.0-6.0) /HPF
[2017-07-09] MEDS ORDERED: VANCOMYCIN/NS 1 GM/250 ML 1 GM/250 ML BAG IV SCH (18:00)
[2017-07-09] MEDS ORDERED: TPN ADULT 2,400 ML IV SCH (20:00)
[2017-07-09] MEDS: PEPCID IV SCH (21:25)
[2017-07-09] MEDS: COMPAZINE IV PRN (23:53)
[2017-07-10] MEDS: FLAGYL 500 MG/100 ML 500 MG/100 ML BAG IV SCH ×3 (04:00→15:25)
[2017-07-10] MEDS: MORPHINE IV PRN ×5 (04:00→21:52)
[2017-07-10 04:38] LABS: Hematocrit 27.7 % (35.5-45.6); Hemoglobin 8.7 gm/dl (11.8-15.2); Mean Corpuscular HGB Conc 32 % (32-34); Mean Corpuscular Hemoglobin 31 pg (28-32); Mean Corpuscular Volume 97 fl (84-94); Platelet Count 335 K/mm3 (140-440); Red Blood Count 2.85 M/mm3 (3.65-5.03); Red Cell Distribution Width 15.4 % (13.2-15.2)
[2017-07-10 04:49] LABS: BUN/Creatinine Ratio 25; Blood Urea Nitrogen 20 mg/dL (9-20); Calcium 7.7 mg/dL (8.4-10.2); Hemolysis Index 4
[2017-07-10] MEDS: MAXIPIME 2 GM in NACL 0.9% 20 ML IV SCH ×3 (06:00→21:53)
[2017-07-10 06:42] LABS: Anisocytosis 1+; Band Neutrophils # (Manual) 0.3 K/mm3; Basophils % (Manual) 0 % (0.0-1.8); Eosinophils % (Manual) 0 % (0.0-4.3); Hypochromasia 1+; Ovalocytes 1+; Total Cells Counted 100
[2017-07-10] MEDS: COMPAZINE IV PRN ×3 (07:59→21:58)
[2017-07-10] MEDS: HABITROL TD SCH (11:03)
[2017-07-10] MEDS: PEPCID IV SCH ×2 (11:04→21:55)
[2017-07-10] MEDS: SODIUM CHLORIDE FLUSH SYRINGE 10 ML IV SCH (11:04)
--- NOTE | 2017-07-10 11:30 | Progress Note ---
Assessment and Plan Pelvic abscess and wound dehiscence - s/p recent surgery on last admission -Patient placed on IV broad-spectrum antibiotics -Will follow up blood culture/ wound cx results -urgent consult was placed in the ED for the surgeon Dr. Lopez, - plan for conservative Mx - fistulogram obtained and showed sinus tract draining intra-abdominal collection - Patient will be also placed on TPN Severe sepsis secondary to the pelvic abscess and bacteremia -patient placed on sepsis protocol -Culture growing Escherichia coli, we'll follow final results. Hypotension secondary to the sepsis -Patient's blood pressure responded to IV hydration -He will be continued on maintenance IV fluid with blood pressure monitoring. Recurrent right inguinal hernia -The surgeon has been consulted. Conservative management for now Transaminitis likely secondary to sepsis -Will continue to monitor his liver function test levels Acute kidney injury -Patient will be placed on IV fluid, will monitor his creatinine level - Cr normal today Acute anemia -WIll monitor his H/H and transfuse as needed. Prophylaxis -DVT prophylaxis with SCD and GI prophylaxis with Protonix Brief history: Patient is a 61 year old -[place] male who presented to the ED on account of foul smelling drainage from his surgical wound on his abdomen. The patient was discharged from the hospital just a day ago after undergoing open laparotomy for a right inguinal hernia with small bowel obstruction. Radiological data: Fistulogram: A small draining sinus was identified in the right lower quadrant abdominal wall. The sinus tract that appears to communicate with a blind ending collection such as an abscess. No complication with bowel loops is appreciated. CT abdomen and pelvis with contrast: Continue to recurrent large right inguinal Hernia Extending into the Scrotum. Possible Large Pelvic Abscess Versus an Opacified Bowel Loops. Chest x-ray: No evidence of acute cardiopulmonary disease Physical exam: General appearance: Present: elderly male, other (ill looking) - EENT Eyes: Present: PERRL, EOM intact ENT: hearing intact, clear oral mucosa - Neck Neck: Present: supple, normal ROM - Respiratory Respiratory effort: normal Respiratory: bilateral: CTA - Cardiovascular Rhythm: other (tachycardia with regular rhythm) Heart Sounds: Present: S1 & S2. Absent: rub, click - Extremities Extremities: pulses symmetrical, No edema Peripheral Pulses: within normal limits - Abdominal General gastrointestinal: Present: soft, tender (generalized), distended, normal bowel sounds, other (foul smelling discharge from the surgical site collecting on the collectomy bag) Male genitourinary: Present: right scrotal swelling - Integumentary Integumentary: Present: erythema (with drainage from abdominal surgical wound) - Musculoskeletal Musculoskeletal: other (generalized weakness) - Psychiatric Psychiatric: appropriate mood/affect, intact judgment & insight - Neurologic Neurologic: CNII-XII intact Subjective Date of service: 07/10/17 Interval history: Pt seen and examined c/o abdominal pain and scrotal swelling discussed plan of care with GS Continue to drain foul-smelling black greenish discharge from the abdominal wall open wound Objective - Constitutional Vitals: Vital Signs - 12hr 07/10/17 07/10/17 07/10/17 00:00 04:00 04:30 Temperature 99.9 F H 98.1 F Pulse Rate Pulse Rate [ 101 H 111 H Apical] Respiratory 16 14 16 Rate Blood Pressure O2 Sat by Pulse 97 99 Oximetry 07/10/17 07/10/17 07/10/17 07:00 07:10 07:20 Temperature Pulse Rate 104 H 105 H 100 H Pulse Rate [ Apical] Respiratory 19 18 18 Rate Blood Pressure 111/72 73/30 147/73 O2 Sat by Pulse 99 100 100 Oximetry 07/10/17 07/10/17 07/10/17 07:30 07:40 07:50 Temperature Pulse Rate 103 H 103 H 97 H Pulse Rate [ Apical] Respiratory 15 21 25 H Rate Blood Pressure 147/73 147/73 147/73 O2 Sat by Pulse 99 100 100 Oximetry 07/10/17 07/10/17 07/10/17 08:00 08:10 08:20 Temperature 99.7 F H Pulse Rate 107 H 97 H 96 H Pulse Rate [ Apical] Respiratory 19 17 18 Rate Blood Pressure 138/63 138/63 138/63 O2 Sat by Pulse 99 99 98 Oximetry 07/10/17 07/10/17 07/10/17 08:30 08:40 08:50 Temperature Pulse Rate 99 H 96 H 96 H Pulse Rate [ Apical] Respiratory 16 18 18 Rate Blood Pressure 138/63 138/63 138/63 O2 Sat by Pulse 98 99 99 Oximetry 07/10/17 07/10/17 07/10/17 09:00 09:10 09:20 Temperature Pulse Rate 114 H 106 H 102 H Pulse Rate [ Apical] Respiratory 15 20 21 Rate Blood Pressure 114/66 114/66 114/66 O2 Sat by Pulse 96 100 100 Oximetry 07/10/17 07/10/17 09:30 09:40 Temperature Pulse Rate 96 H 96 H Pulse Rate [ Apical] Respiratory 15 19 Rate Blood Pressure 114/66 114/66 O2 Sat by Pulse 98 100 Oximetry - Labs CBC & Chem 7: 07/11/17 05:41 07/11/17 05:41 Labs: Abnormal lab results 07/08/17 07/09/17 07/09/17 Range/Units 16:30 13:26 19:28 WBC (4.5-11.0) K/mm3 RBC (3.65-5.03) M/mm3 Hgb (11.8-15.2) gm/dl Hct (35.5-45.6) % MCV (84-94) fl RDW (13.2-15.2) % Seg Neuts % (Manual) (40.0-70.0) % Lymphocytes % (Manual) (13.4-35.0) % Seg Neutrophils # Man (1.8-7.7) K/mm3 Lymphocytes # (Manual) (1.2-5.4) K/mm3 Chloride (98-107) mmol/L Glucose (75-100) mg/dL POC Glucose 118 H 124 H (70-105) Calcium (8.4-10.2) mg/dL Phosphorus (2.5-4.5) mg/dL Urine WBC (Auto) 8.0 H (0.0-6.0) /HPF 07/10/17 07/10/17 07/10/17 Range/Units 04:16 04:16 06:07 WBC 26.8 H (4.5-11.0) K/mm3 RBC 2.85 L (3.65-5.03) M/mm3 Hgb 8.7 L (11.8-15.2) gm/dl Hct 27.7 L (35.5-45.6) % MCV 97 H (84-94) fl RDW 15.4 H (13.2-15.2) % Seg Neuts % (Manual) 93.0 H (40.0-70.0) % Lymphocytes % (Manual) 3.0 L (13.4-35.0) % Seg Neutrophils # Man 24.9 H (1.8-7.7) K/mm3 Lymphocytes # (Manual) 0.8 L (1.2-5.4) K/mm3 Chloride 109.8 H (98-107) mmol/L Glucose 108 H (75-100) mg/dL POC Glucose 128 H (70-105) Calcium 7.7 L (8.4-10.2) mg/dL Phosphorus 1.90 L (2.5-4.5) mg/dL Urine WBC (Auto) (0.0-6.0) /HPF
[2017-07-10] MEDS: VANCOMYCIN/NS 1 GM/250 ML 1 GM/250 ML BAG IV SCH (12:45)
[2017-07-10] MEDS: HEPARIN SUB-Q SCH ×2 (15:25→22:00)
--- NOTE | 2017-07-10 16:25 | Progress Note ---
Assessment and Plan Severe sepsis syndrome with hypotension. Post-surgical wound dehiscence and cellulitis with pelvic abscess formation. Recurrent right inguinal hernia, status post exploratory laparotomy and bowel resection. Leukocytosis. Anemia, microcytic. Acute kidney injury. Lactic acidosis. Protein-calorie malnutrition. Urinary tract infection. Tobacco use disorder - continue antibiotics per ID recs (cefepime and flagyl) - continue wound care per RN / WCT - surgical evaluation ongoing - growing E-Coli in blood - gentle hydration while monitoring Bun?cr levels and I's & O's - prn H&H - continue GI & VTE prophylaxis .. ok to transfer to medical floor ...35' Subjective Date of service: 07/10/17 Principal diagnosis: Severe Sepsis; Intra-Abdominal Abscess; Gram negative bacteremia Interval history: Patient is seen today for: Severe Sepsis; Intra-Abdominal Abscess; Gram negative bacteremia Seen and examined at bedside; 24hour events reviewed; nursing and respiratory care staff consulted; no adverse overnight events reported to me; resting peacefully in bed; denies acute chest pains or increase SOB; no abdominal pain; fistulogram reviewed and no communication with bowel Objective Vital Signs - 12hr 07/10/17 07/10/17 07/10/17 04:30 07:00 07:10 Temperature Pulse Rate 104 H 105 H Respiratory 16 19 18 Rate Blood Pressure 111/72 73/30 O2 Sat by Pulse 99 100 Oximetry 07/10/17 07/10/17 07/10/17 07:20 07:30 07:40 Temperature Pulse Rate 100 H 103 H 103 H Respiratory 18 15 21 Rate Blood Pressure 147/73 147/73 147/73 O2 Sat by Pulse 100 99 100 Oximetry 07/10/17 07/10/17 07/10/17 07:50 08:00 08:10 Temperature 99.7 F H Pulse Rate 97 H 107 H 97 H Respiratory 25 H 19 17 Rate Blood Pressure 147/73 138/63 138/63 O2 Sat by Pulse 100 99 99 Oximetry 07/10/17 07/10/17 07/10/17 08:20 08:30 08:40 Temperature Pulse Rate 96 H 99 H 96 H Respiratory 18 16 18 Rate Blood Pressure 138/63 138/63 138/63 O2 Sat by Pulse 98 98 99 Oximetry 07/10/17 07/10/17 07/10/17 08:50 09:00 09:10 Temperature Pulse Rate 96 H 114 H 106 H Respiratory 18 15 20 Rate Blood Pressure 138/63 114/66 114/66 O2 Sat by Pulse 99 96 100 Oximetry 07/10/17 07/10/17 07/10/17 09:20 09:30 09:40 Temperature Pulse Rate 102 H 96 H 96 H Respiratory 21 15 19 Rate Blood Pressure 114/66 114/66 114/66 O2 Sat by Pulse 100 98 100 Oximetry 07/10/17 12:00 Temperature 101.0 F H Pulse Rate Respiratory Rate Blood Pressure O2 Sat by Pulse Oximetry Constitutional: no acute distress, alert Eyes: non-icteric ENT: oropharynx moist, other (mallampatti 2) Neck: supple, no lymphadenopathy, no JVD, other (no thyromegaly) Effort: mildly labored Ascultation: Bilateral: rhonchi (scant in bases) Percussion: Bilateral: not dull Cardiovascular: regular rate and rhythm, other (no R/M) Gastrointestinal: hypoactive bowel sounds, soft, non-tender, non-distended, other (midline retention sutures with drainage at suprapubic level; + ostomy bag ) Integumentary: normal Extremities: no cyanosis, no edema, pulses normal, no ischemia or petechiae Neurologic: normal mental status, non-focal exam, pupils equal and round, motor strength normal and Psychiatric: mood appropriate, affect normal CBC and BMP: 07/11/17 05:41 07/11/17 05:41 ABG, PT/INR, D-dimer: PT/INR, D-dimer PT 16.9 Sec. (12.2-14.9) H 07/08/17 18:05 INR 1.30 (0.87-1.13) H 07/08/17 18:05 Abnormal lab findings: Abnormal Labs 07/08/17 07/08/17 07/08/17 16:30 18:05 18:05 WBC 58.7 H* RBC 3.13 L Hgb 9.6 L Hct 29.8 L MCV 95 H RDW Seg Neuts % (Manual) 70.5 H Lymphocytes % (Manual) 2.5 L Seg Neutrophils # Man 41.4 H Lymphocytes # (Manual) Monocytes # (Manual) 1.5 H PT 16.9 H INR 1.30 H VBG pH Chloride Carbon Dioxide BUN Creatinine Glucose POC Glucose Lactic Acid Calcium Phosphorus Magnesium Total Bilirubin AST Total Protein Albumin Urine WBC (Auto) 8.0 H 07/08/17 07/08/17 07/08/17 18:05 18:05 18:05 WBC RBC Hgb Hct MCV RDW Seg Neuts % (Manual) Lymphocytes % (Manual) Seg Neutrophils # Man Lymphocytes # (Manual) Monocytes # (Manual) PT INR VBG pH 7.443 H Chloride 96.2 L Carbon Dioxide 19 L BUN 29 H Creatinine 1.9 H D Glucose 143 H POC Glucose Lactic Acid 6.50 H* Calcium 8.2 L Phosphorus Magnesium Total Bilirubin 1.40 H AST 60 H Total Protein 6.1 L Albumin 2.4 L Urine WBC (Auto) 07/08/17 07/08/17 07/09/17 18:41 20:10 06:57 WBC 43.0 H* RBC 2.66 L Hgb 8.2 L Hct 25.1 L MCV 95 H RDW Seg Neuts % (Manual) 91.5 H Lymphocytes % (Manual) 2.0 L Seg Neutrophils # Man 39.3 H Lymphocytes # (Manual) 0.9 L Monocytes # (Manual) 1.9 H PT INR VBG pH Chloride Carbon Dioxide BUN Creatinine Glucose POC Glucose Lactic Acid 6.50 H* 3.80 H* Calcium Phosphorus Magnesium Total Bilirubin AST Total Protein Albumin Urine WBC (Auto) 07/09/17 07/09/17 07/09/17 06:57 13:26 19:28 WBC RBC Hgb Hct MCV RDW Seg Neuts % (Manual) Lymphocytes % (Manual) Seg Neutrophils # Man Lymphocytes # (Manual) Monocytes # (Manual) PT INR VBG pH Chloride 110.5 H Carbon Dioxide 21 L BUN 27 H Creatinine Glucose 109 H POC Glucose 118 H 124 H Lactic Acid Calcium 6.9 L D Phosphorus Magnesium 1.60 L Total Bilirubin AST Total Protein 5.1 L Albumin 2.1 L Urine WBC (Auto) 07/10/17 07/10/17 07/10/17 04:16 04:16 06:07 WBC 26.8 H RBC 2.85 L Hgb 8.7 L Hct 27.7 L MCV 97 H RDW 15.4 H Seg Neuts % (Manual) 93.0 H Lymphocytes % (Manual) 3.0 L Seg Neutrophils # Man 24.9 H Lymphocytes # (Manual) 0.8 L Monocytes # (Manual) PT INR VBG pH Chloride 109.8 H Carbon Dioxide BUN Creatinine Glucose 108 H POC Glucose 128 H Lactic Acid Calcium 7.7 L Phosphorus 1.90 L Magnesium Total Bilirubin AST Total Protein Albumin Urine WBC (Auto) 07/10/17 11:57 WBC RBC Hgb Hct MCV RDW Seg Neuts % (Manual) Lymphocytes % (Manual) Seg Neutrophils # Man Lymphocytes # (Manual) Monocytes # (Manual) PT INR VBG pH Chloride Carbon Dioxide BUN Creatinine Glucose POC Glucose 106 H Lactic Acid Calcium Phosphorus Magnesium Total Bilirubin AST Total Protein Albumin Urine WBC (Auto) Chest x-ray: image reviewed Allied health notes reviewed: nursing
[2017-07-10] MEDS ORDERED: TPN ADULT 2,400 ML IV SCH (20:00)
[2017-07-11] MEDS: FLAGYL 500 MG/100 ML 500 MG/100 ML BAG IV SCH ×3 (00:21→17:50)
[2017-07-11 01:05] LABS: Hematocrit 24.5 % (35.5-45.6); Hemoglobin 7.9 gm/dl (11.8-15.2); Mean Corpuscular HGB Conc 32 % (32-34); Mean Corpuscular Hemoglobin 31 pg (28-32); Mean Corpuscular Volume 96 fl (84-94); Platelet Count 321 K/mm3 (140-440); Red Blood Count 2.55 M/mm3 (3.65-5.03); Red Cell Distribution Width 14.8 % (13.2-15.2)
[2017-07-11] MEDS: VANCOMYCIN/NS 1 GM/250 ML 1 GM/250 ML BAG IV SCH ×2 (01:23→19:35)
[2017-07-11] MEDS: SODIUM CHLORIDE FLUSH SYRINGE 10 ML IV SCH ×3 (03:19→21:34)
[2017-07-11] MEDS: MORPHINE IV PRN ×4 (04:45→17:48)
[2017-07-11] MEDS: MAXIPIME 2 GM in NACL 0.9% 20 ML IV SCH ×3 (05:24→21:41)
[2017-07-11 06:57] LABS: Basophils % (Auto) 0.1 % (0.0-1.8); Eosinophils # (Auto) 0.1 K/mm3 (0.0-0.4); Eosinophils % (Auto) 0.6 % (0.0-4.3); Hematocrit 25.7 % (35.5-45.6); Hemoglobin 8.8 gm/dl (11.8-15.2); Lymphocytes % (Auto) 6.2 % (13.4-35.0); Mean Corpuscular HGB Conc 34 % (32-34); Mean Corpuscular Hemoglobin 32 pg (28-32); Mean Corpuscular Volume 94 fl (84-94); Monocytes % (Auto) 6.3 % (0.0-7.3); Platelet Count 350 K/mm3 (140-440); Red Blood Count 2.74 M/mm3 (3.65-5.03); Red Cell Distribution Width 14.7 % (13.2-15.2)
[2017-07-11 07:08] LABS: BUN/Creatinine Ratio 29; Blood Urea Nitrogen 20 mg/dL (9-20); Calcium 8.2 mg/dL (8.4-10.2); Hemolysis Index 7
[2017-07-11] MEDS: HABITROL TD SCH (09:45)
[2017-07-11] MEDS: PEPCID IV SCH ×2 (09:45→21:29)
[2017-07-11] MEDS: HEPARIN SUB-Q SCH ×2 (09:59→21:29)
--- NOTE | 2017-07-11 10:56 | Consultation ---
CONSULTING PHYSICIAN: Gricelda Hogue MD REASON FOR CONSULT: Sepsis syndrome. CHIEF COMPLAINT AND HISTORY OF PRESENT ILLNESS: The patient is a 61-year-old -Citizen Of [place] male, past medical history significant for diagnosis of right inguinal hernia with small-bowel obstruction, who came into the Emergency Room complaining of foul smelling drainage from his surgical wound in his abdomen. He had been discharged from the hospital a day prior following open laparotomy for the bowel obstruction. At the time of surgery he had gangrenous bowel, he did undergo partial small bowel resection. He denied nausea, he denied vomiting, he denied fevers or chills. Evaluation in the Emergency Room amongst other things showed that the patient was hypotensive and did presumably secondary to an intra-abdominal infection Intensive Care Unit admission was requested secondary to this. I had stopped by to see the patient. He was resting in bed peacefully. He denied any chest pains. He denied any cough or expectoration. He denied any trauma to the abdomen. He did admit to some abdominal pain at the area of the incision. It is really is as much of the history of presentation as I have. Now with regards to tobacco use or abuse he has about a 20+ pack year tobacco smoking history. PAST MEDICAL HISTORY: Denied any. PAST SURGICAL HISTORY: The recent exploratory laparotomy with partial small bowel resection. MEDICATIONS: He was on at the time I stopped by to see were reviewed, pertinent medications include the following: He was on cefepime and 2 grams IV q.8 hours. He was on Flagyl 500 mg IV q.8 hours. He was on morphine 2 mg IV q. 3 hours p.r.n. moderate pain. He was on a nicotine patch 14 mg per day. He was receiving vancomycin and had received 1 gram IV and scheduled q. 12 hours. ALLERGIES: No known drug allergies. DIET: Well-built gentleman, now has lost some weight. He remains n.p.o. at the time of my evaluation. FAMILY AND SOCIAL HISTORY: Apparently lived in the community. He has a 20+ pack year tobacco smoking history, quit smoking about 2 or 3 weeks ago. Denies alcohol or illicit drug use or abuse. Family history, otherwise are noncontributory. REVIEW OF SYSTEMS: No loss of consciousness. No new onset seizures. No new onset focal weakness. No gross hematochezia or melena. No constipation. He has the abdominal pain. No gross hematuria. No dysuria. He denies any flank pain. He denies any polydipsia, polyuria, polyphagia, heat or cold intolerance. He denies any new rash in the body. He denies any new lumps, bumps, or swellings. He denies chest pains or palpitations. Complete 13 systems review of systems obtained. Pertinent positives and/or negatives as in body of history above, otherwise they are noncontributory. PHYSICAL EXAMINATION: VITAL SIGNS: At presentation in the emergency room; he was afebrile, temperature 97.8 degrees Fahrenheit, pulse was 126, respiratory rate was 27, blood pressure was 86/49, O2 sats 99%, inspired oxygen concentration was not recorded at the time that I was seen him, his O2 sats were 95% on room air. HEAD, EYES, EARS, NOSE AND THROAT: He was anicteric. No conjunctival erythema. Oropharynx was moist. No thyromegaly, no jugular venous distention. Grossly, no palpable lymph nodes in the supraclavicular or submandibular lymph node chains. LUNGS: Auscultation of both lung dangelo, diminished bibasilar air entry, occasional inspiratory crackles, no wheezing. HEART: Heart sounds 1 and 2 are heard, regular rate and rhythm at time of my evaluation. No rubs or murmurs. ABDOMEN: Soft. Bowel sounds are positive, but hyperactive. He was tender in the suprapubic area at the site of the incision. He had retention sutures with foul smelling drainage from the lower suture site. No palpable hepatosplenomegaly. EXTREMITIES: Without overt digital clubbing, cyanosis, or pedal edema. Dorsalis pedis pulses are palpable bilaterally. NEUROLOGIC: He moved all extremities and pupils were equal about 4 mm, round, reactive to light. Extraocular muscle movements were intact. GENERAL: He was elderly looking -Citizen [place] male, looked his stated age. He was normocephalic, atraumatic, talking to me in full sentences without overt respiratory distress. LABORATORY DATA: From my review are as follows: Admission white cell count 58,700 with hemoglobin of 9.6, hematocrit of 29.8 and platelet count of 334, 23% band forms. INR 1.30. Venous blood gas showed a pH of 7.44. Serum sodium was 138, potassium 4.1, chloride 96, bicarbonate 19, BUN 29, creatinine 1.9, glucose was 143. Lactic acid level was 6.5. Total bilirubin 1.4, AST 60. Albumin low at 2.4. Urinalysis was negative for nitrites. It showed trace leukocyte esterase with 8 white cells per high power field. Repeat lactic acid level was 3.8. Radiographic studies were reviewed. A chest x-ray was done. I have reviewed the chest x-ray. I have also reduce the radiologist's interpretation and I do agree with it. Essentially it is unremarkable x-ray of the chest, no acute cardiopulmonary disease. He also had a CT of the abdomen and pelvis done with contrast and I have reviewed that I have also reviewed the radiologist's interpretation. The main finding is continued or recurrent large right inguinal canal hernia extending into the scrotum with a possible large pelvic abscess versus unopacified bowel loops. ASSESSMENT: 1. Severe sepsis syndrome with hypotension. 2. Post-surgical wound dehiscence and cellulitis with pelvic abscess formation. 3. Recurrent right inguinal hernia, status post exploratory laparotomy and bowel resection. 4. Leukocytosis. 5. Anemia, microcytic. 6. Acute kidney injury. 7. Lactic acidosis. 8. Protein-calorie malnutrition. 9. Urinary tract infection. 10. Tobacco use disorder. PLAN: 1. Continue broad spectrum antibiotic therapy deescalate based on results of clinical and microbiologic data and also per the Infectious Disease physician. I should mention that the patient is growing gram-negative rods. We await ID's and sensitivities to aid de-escalation further. 2. Continue volume resuscitation go ahead and repeat the lactic acid level. Follow inputs and outputs. Follow BUN and creatinine. The patient will likely need to be started on TPN until cleared by the surgeon for oral intake. Surgical intervention obviously has been requested and we will defer to them in terms of the need for repeat surgical intervention. Reportedly, a fistulogram has been ordered and we will follow the results of that. The patient will be started on GI prophylaxis. Also, well as DVT prophylaxis. Flu and pneumonia vaccination will be addressed per protocol. Further interventions will depend on his status. Vasopressors will be started if mean arterial pressures drop below 60 mmHg, despite volume resuscitation. Again flu and pneumonia vaccination will be addressed per protocol. Thank you very much for the consult. He is critically ill. At risk of further deterioration including ; however, I feel that in the short time with his excellent or good response to volume we should be able to transition him to the medical floor. We will follow along. We will make further recommendations as picture progresses/becomes clearer. At this point, I have spent about 35-40 minutes of critical care time without overlap and excluding any procedural time that may be necessary. JOB# [id number] ARUN/JARROD BURGOS
--- NOTE | 2017-07-11 13:09 | Consultation ---
History of Present Illness - Reason for Consult Consult date: 07/11/17 sepsis Requesting physician: MEGHAN DEL ROSARIO - History of Present Illness 61 y/o male with history of hernia, initially admitted on 06/30/17 due to sepsis due to small bowel gangrene secondary to incarcerated inguinal hernia Status post bowel resection on 06/30, developed acute respiratory failure was intubated and successfully extubated, also developed acute kidney injury which resolved. Patient was discharged home on 07/07/17 and readmitted on 07/07/17 due to foul smelling drainage from his surgical wound on his abdomen. He reports he has been feeling sleepy and weak. He denies nausea, vomiting, constipation or diarrhea. No fever, chills, chest pain, shortness of breath or palpitations. In the ED, the initial temperature was 97.8, heart rate 126, respirations 27, O2 sat 99, blood pressure 81/53. Initial white count 58.7. Hemoglobin 9.6. Platelets 334. Bands 13%. Creatinine 1.9. Lactic acid 6.5. AST 60. Urinalysis showed a white blood cells and trace leukocyte esterase. Blood culture growing Escherichia coli. Wound culture growing Escherichia coli and other gram-negative throats. Ct abd showed continued or recurrent large right inguinal canal hernia extending into scrotum and possible large pelvic abscess. Fistulogram showed positive sinus tract communicating with blind end presumedly a collection. Microbiology: Blood cultures: 5/3 E coli Urine cultures: / <10K Respiratory cultures: Wound cultures: /3 E coli and GNRs Stool cultures: Other: Current Antimicrobials: Flagyl 5/4 Vancomycin 5/4 Cefepime 5/4 Previous Antimicrobials: Past History Past Medical History: other (right inguinal hernia with small bowel obstruction) Past Surgical History: Other (recent open laparotomy with partial small bowel resection) Social history: smoking (ex-smoker for 40 years, quit 1 week ago. He denies alcohol or illicit drug use) Family history: other (reviewed and noncontributory) Medications and Allergies Allergies Allergy/AdvReac Type Severity Reaction Status Date / Time No Known Allergies Allergy Unverified 06/29/17 14:29 Home Medications Medication Instructions Recorded Confirmed Last Taken Type Cephalexin [Keflex] 500 mg PO Q12HR #6 cap 07/07/17 07/09/17 07/08/17 Rx Nicotine [Habitrol] 14 mg TD QDAY #30 patch 07/07/17 07/09/17 Unknown Rx oxyCODONE /ACETAMINOPHEN [Percocet 1 tab PO Q12H PRN #6 tablet 07/07/1707/08/17 Rx 5/325] Active Meds: Active Medications Famotidine (Pepcid) 20 mg IV BID [facility] Last Admin: 07/11/17 09:45 Dose: 20 mg Heparin Sodium (Porcine) (Heparin) 5,000 unit SUB-Q Q12HR [facility] Last Admin: 07/11/17 09:59 Dose: 5,000 unit Metronidazole (Flagyl 500 Mg/100 Ml) 500 mg in 100 mls @ 100 mls/hr IV Q8H [facility] Last Admin: 07/11/17 09:45 Dose: 100 mls/hr Cefepime HCl 2 gm/ Sodium (Chloride) 20 mls @ 2 mls/min IV Q8HR [facility] Last Admin: 07/11/17 05:24 Dose: 2 mls/min Amino Acids/Electrolytes/Dextrose (Tpn Adult) 2,400 mls @ 100 mls/hr IV DAILY@ 1999 [facility]; Protocol Stop: 07/11/17 19:59 Last Admin: 07/10/17 20:34 Dose: 100 mls/hr Amino Acids/Electrolytes/Dextrose (Tpn Adult) 2,400 mls @ 100 mls/hr IV DAILY@ 1999 [facility]; Protocol Stop: 07/12/17 19:59 Morphine Sulfate (Morphine) 2 mg IV Q3H PRN PRN Reason: Pain, Moderate (4-6) Last Admin: 07/11/17 09:45 Dose: 2 mg Nicotine (Habitrol) 14 mg TD QDAY [facility] Last Admin: 07/11/17 09:45 Dose: 14 mg Prochlorperazine Edisylate (Compazine) 10 mg IV Q6H PRN PRN Reason: Nausea And Vomiting Last Admin: 07/10/17 21:58 Dose: 10 mg Sodium Chloride (Sodium Chloride Flush Syringe 10 Ml) 10 ml IV BID [facility] Last Admin: 07/11/17 03:19 Dose: 10 ml Sodium Chloride (Sodium Chloride Flush Syringe 10 Ml) 10 ml IV PRN PRN PRN Reason: LINE FLUSH Vancomycin HCl (Vancomycin Pharmacy To Dose) 1 each IV PKCONSULT RADHA; Protocol Review of Systems All systems: negative (as per HPI rest negative) Physical Examination - Physical Exam Narrative exam: General appearance: Alert in NAD, conversant Eyes: anicteric sclerae, moist conjunctivae; no lid-lag; PERRLA HENT: Atraumatic; oropharynx clear poor dentition Neck: Trachea midline; supple, no thyromegaly or lymphadenopathy Lungs: CTA, with normal respiratory effort and no intercostal retractions CV: RRR, no murmurs Abdomen: Soft, +wound care pictures reviewed +ostomy Extremities: No peripheral edema or extremity lymphadenopathy Skin: Normal temperature, turgor and texture; no rash, ulcers or subcutaneous nodules Psych: Appropriate affect, alert and oriented to person, place and time. Neuro: alert and oriented x 3. Moving all extermities Lines: No CVL / PICC - Constitutional Vitals: Vital Signs Temp Pulse Resp BP Pulse Ox 98.9 F 104 H 18 128/69 99 07/11/17 07:54 07/11/17 07:08 07/11/17 07:08 07/11/17 07:07 07/11/17 07:08 Temperature -Last 24 Hours Temperature 98.9 F Temperature 98.9 F Temperature 99.1 F Temperature 99.1 F Temperature 99.8 F Temperature 99.3 F Temperature 99.6 F Temperature 98.6 F Results - Labs CBC & Chem 7: 07/11/17 05:41 07/11/17 05:41 Labs: Abnormal lab results 07/11/17 07/11/17 07/11/17 Range/Units 00:52 05:41 05:41 WBC 16.9 H 16.2 H (4.5-11.0) K/mm3 RBC 2.55 L 2.74 L (3.65-5.03) M/mm3 Hgb 7.9 L 8.8 L (11.8-15.2) gm/dl Hct 24.5 L 25.7 L (35.5-45.6) % MCV 96 H (84-94) fl Lymph % (Auto) 6.2 L (13.4-35.0) % Lymph # 1.0 L (1.2-5.4) K/mm3 [place] # 1.0 H (0.0-0.8) K/mm3 Seg Neutrophils % 86.8 H (40.0-70.0) % Seg Neutrophils # 14.1 H (1.8-7.7) K/mm3 Creatinine 0.7 L (0.8-1.5) mg/dL Calcium 8.2 L (8.4-10.2) mg/dL Assessment and Plan Assessment: 1) Severe sepsis: Present on admission, manifested by fever, tachycardia, hypotension, leukocytosis, increased lactate. Etiology most likely surgical wound infection +/- intra-abdominal abscess +/- E coli bacteremia. 2) E coli bacteremia: from surgical site infection -Blood cx 5/3 E coli 3) Surgical wound infection ?dehiscence ? leak with intra-abdominal abscess vs. collection -Wound cx 5/3 E coli and GNR -Ct abd showed continued or recurrent large right inguinal canal hernia extending into scrotum and possible large pelvic abscess. -Fistulogram showed positive sinus tract communicating with blind end presumedly a collection. 4) LEIGHA 5) Elevated ELFs - likely from sepsis 6) Recent small bowel gangrene secondary to incarcerated inguinal hernia -Status post bowel resection on 06/30 Plan: -repeat blood cultures -check CRP -Surgical consult r/o leak ? -Consider IR evaluation for collection drainage if OK with surgery -continue cefepime and flagyl for now Thank you for your consultation, will follow up with you. Johana Mcqueen MD Infectious Diseases Specialist [facility] ([facility] M [phone] O [phone]
--- NOTE | 2017-07-11 15:24 | Progress Note ---
Subjective Patient Reports: Positive: feels better, bowel movement Narrative: Doing OK ,pulse 96 BP stable . H/H , drainage 2500 cc yesterday !??.doubt that , will cont observation .check KUB in AM Objective Vital Signs - 12hr 07/11/17 07/11/17 07/11/17 04:00 07:07 07:08 Temperature 99.1 F 98.9 F Pulse Rate 106 H 101 H Respiratory 18 Rate Blood Pressure 128/69 Blood Pressure [Right] O2 Sat by Pulse 98 99 Oximetry 07/11/17 07/11/17 07/11/17 07:54 12:57 13:27 Temperature 98.9 F 99.2 F Pulse Rate 95 H 94 H Respiratory 18 Rate Blood Pressure Blood Pressure 128/66 [Right] O2 Sat by Pulse 99 98 Oximetry - Labs 07/11/17 05:41 07/11/17 05:41 Diabetes panel 07/11/17 Range/Units 05:41 Sodium 143 (137-145) mmol/L Potassium 3.6 (3.6-5.0) mmol/L Chloride 105.0 (98-107) mmol/L Carbon Dioxide 25 (22-30) mmol/L BUN 20 (9-20) mg/dL Creatinine 0.7 L (0.8-1.5) mg/dL Glucose 83 (75-100) mg/dL Calcium 8.2 L (8.4-10.2) mg/dL Calcium panel 07/11/17 Range/Units 05:41 Calcium 8.2 L (8.4-10.2) mg/dL Phosphorus 2.70 D (2.5-4.5) mg/dL Pituitary panel 07/11/17 Range/Units 05:41 Sodium 143 (137-145) mmol/L Potassium 3.6 (3.6-5.0) mmol/L Chloride 105.0 (98-107) mmol/L Carbon Dioxide 25 (22-30) mmol/L BUN 20 (9-20) mg/dL Creatinine 0.7 L (0.8-1.5) mg/dL Glucose 83 (75-100) mg/dL Calcium 8.2 L (8.4-10.2) mg/dL Adrenal panel 07/11/17 Range/Units 05:41 Sodium 143 (137-145) mmol/L Potassium 3.6 (3.6-5.0) mmol/L Chloride 105.0 (98-107) mmol/L Carbon Dioxide 25 (22-30) mmol/L BUN 20 (9-20) mg/dL Creatinine 0.7 L (0.8-1.5) mg/dL Glucose 83 (75-100) mg/dL Calcium 8.2 L (8.4-10.2) mg/dL
--- NOTE | 2017-07-11 15:45 | Progress Note ---
Assessment and Plan Severe sepsis syndrome with hypotension. Post-surgical wound dehiscence and cellulitis with pelvic abscess formation. Recurrent right inguinal hernia, status post exploratory laparotomy and bowel resection. Leukocytosis. Anemia, microcytic. Acute kidney injury. Lactic acidosis. Protein-calorie malnutrition. Urinary tract infection. Tobacco use disorder - prn oxygen for sats > 90% - continue antibiotics per ID recs - continue wound care per RN / WCT - surgical evaluation ongoing - growing E-Coli in blood - gentle hydration while monitoring Bun?cr levels and I's & O's - prn H&H - continue GI & VTE prophylaxis - continue other care per attending / other consultants ...25' Subjective Date of service: 07/11/17 Principal diagnosis: Severe Sepsis; Intra-Abdominal Abscess; Gram negative bacteremia Interval history: Patient is seen today for: Severe Sepsis; Intra-Abdominal Abscess; Gram negative bacteremia Seen and examined at bedside; 24hour events reviewed; nursing and respiratory care staff consulted; no adverse overnight events reported to me; resting peacefully in bed; off vasopressors; denies acute chest pains or increased SOB; on 2L NC; no cough or hemoptysis Objective Vital Signs - 12hr 07/11/17 07/11/17 07/11/17 04:00 07:07 07:08 Temperature 99.1 F 98.9 F Pulse Rate 106 H 101 H Respiratory 18 Rate Blood Pressure 128/69 Blood Pressure [Right] O2 Sat by Pulse 98 99 Oximetry 07/11/17 07/11/17 07/11/17 07:54 12:57 13:27 Temperature 98.9 F 99.2 F Pulse Rate 95 H 94 H Respiratory 18 Rate Blood Pressure Blood Pressure 128/66 [Right] O2 Sat by Pulse 99 98 Oximetry Constitutional: no acute distress, alert Eyes: non-icteric ENT: oropharynx moist, other (mallampatti 2) Neck: supple, no lymphadenopathy, no JVD, other (no thyromegaly) Effort: mildly labored Ascultation: Bilateral: rhonchi (scant in bases) Percussion: Bilateral: not dull Cardiovascular: regular rate and rhythm, other (no R/M) Gastrointestinal: hypoactive bowel sounds, soft, non-tender, non-distended, other (midline retention sutures with drainage at suprapubic level; + ostomy bag ) Integumentary: normal Extremities: no cyanosis, no edema, pulses normal, no ischemia or petechiae Neurologic: normal mental status, non-focal exam, pupils equal and round, motor strength normal and Psychiatric: mood appropriate, affect normal CBC and BMP: 07/12/17 12:44 07/13/17 04:20 ABG, PT/INR, D-dimer: PT/INR, D-dimer PT 16.9 Sec. (12.2-14.9) H 07/08/17 18:05 INR 1.30 (0.87-1.13) H 07/08/17 18:05 Abnormal lab findings: Abnormal Labs 07/08/17 07/08/17 07/08/17 16:30 18:05 18:05 WBC 58.7 H* RBC 3.13 L Hgb 9.6 L Hct 29.8 L MCV 95 H RDW Lymph % (Auto) Lymph # [place] # Seg Neutrophils % Seg Neuts % (Manual) 70.5 H Lymphocytes % (Manual) 2.5 L Seg Neutrophils # Seg Neutrophils # Man 41.4 H Lymphocytes # (Manual) Monocytes # (Manual) 1.5 H PT 16.9 H INR 1.30 H VBG pH Chloride Carbon Dioxide BUN Creatinine Glucose POC Glucose Lactic Acid Calcium Phosphorus Magnesium Total Bilirubin AST C-Reactive Protein Total Protein Albumin Urine WBC (Auto) 8.0 H 07/08/17 07/08/17 07/08/17 18:05 18:05 18:05 WBC RBC Hgb Hct MCV RDW Lymph % (Auto) Lymph # [place] # Seg Neutrophils % Seg Neuts % (Manual) Lymphocytes % (Manual) Seg Neutrophils # Seg Neutrophils # Man Lymphocytes # (Manual) Monocytes # (Manual) PT INR VBG pH 7.443 H Chloride 96.2 L Carbon Dioxide 19 L BUN 29 H Creatinine 1.9 H D Glucose 143 H POC Glucose Lactic Acid 6.50 H* Calcium 8.2 L Phosphorus Magnesium Total Bilirubin 1.40 H AST 60 H C-Reactive Protein Total Protein 6.1 L Albumin 2.4 L Urine WBC (Auto) 07/08/17 07/08/17 07/09/17 18:41 20:10 06:57 WBC 43.0 H* RBC 2.66 L Hgb 8.2 L Hct 25.1 L MCV 95 H RDW Lymph % (Auto) Lymph # [place] # Seg Neutrophils % Seg Neuts % (Manual) 91.5 H Lymphocytes % (Manual) 2.0 L Seg Neutrophils # Seg Neutrophils # Man 39.3 H Lymphocytes # (Manual) 0.9 L Monocytes # (Manual) 1.9 H PT INR VBG pH Chloride Carbon Dioxide BUN Creatinine Glucose POC Glucose Lactic Acid 6.50 H* 3.80 H* Calcium Phosphorus Magnesium Total Bilirubin AST C-Reactive Protein Total Protein Albumin Urine WBC (Auto) 07/09/17 07/09/17 07/09/17 06:57 13:26 19:28 WBC RBC Hgb Hct MCV RDW Lymph % (Auto) Lymph # [place] # Seg Neutrophils % Seg Neuts % (Manual) Lymphocytes % (Manual) Seg Neutrophils # Seg Neutrophils # Man Lymphocytes # (Manual) Monocytes # (Manual) PT INR VBG pH Chloride 110.5 H Carbon Dioxide 21 L BUN 27 H Creatinine Glucose 109 H POC Glucose 118 H 124 H Lactic Acid Calcium 6.9 L D Phosphorus Magnesium 1.60 L Total Bilirubin AST C-Reactive Protein Total Protein 5.1 L Albumin 2.1 L Urine WBC (Auto) 07/10/17 07/10/17 07/10/17 04:16 04:16 06:07 WBC 26.8 H RBC 2.85 L Hgb 8.7 L Hct 27.7 L MCV 97 H RDW 15.4 H Lymph % (Auto) Lymph # [place] # Seg Neutrophils % Seg Neuts % (Manual) 93.0 H Lymphocytes % (Manual) 3.0 L Seg Neutrophils # Seg Neutrophils # Man 24.9 H Lymphocytes # (Manual) 0.8 L Monocytes # (Manual) PT INR VBG pH Chloride 109.8 H Carbon Dioxide BUN Creatinine Glucose 108 H POC Glucose 128 H Lactic Acid Calcium 7.7 L Phosphorus 1.90 L Magnesium Total Bilirubin AST C-Reactive Protein Total Protein Albumin Urine WBC (Auto) 07/10/17 07/11/17 07/11/17 11:57 00:52 05:41 WBC 16.9 H RBC 2.55 L Hgb 7.9 L Hct 24.5 L MCV 96 H RDW Lymph % (Auto) Lymph # [place] # Seg Neutrophils % Seg Neuts % (Manual) Lymphocytes % (Manual) Seg Neutrophils # Seg Neutrophils # Man Lymphocytes # (Manual) Monocytes # (Manual) PT INR VBG pH Chloride Carbon Dioxide BUN Creatinine 0.7 L Glucose POC Glucose 106 H Lactic Acid Calcium 8.2 L Phosphorus Magnesium Total Bilirubin AST C-Reactive Protein Total Protein Albumin Urine WBC (Auto) 07/11/17 07/11/17 05:41 05:41 WBC 16.2 H RBC 2.74 L Hgb 8.8 L Hct 25.7 L MCV RDW Lymph % (Auto) 6.2 L Lymph # 1.0 L [place] # 1.0 H Seg Neutrophils % 86.8 H Seg Neuts % (Manual) Lymphocytes % (Manual) Seg Neutrophils # 14.1 H Seg Neutrophils # Man Lymphocytes # (Manual) Monocytes # (Manual) PT INR VBG pH Chloride Carbon Dioxide BUN Creatinine Glucose POC Glucose Lactic Acid Calcium Phosphorus Magnesium Total Bilirubin AST C-Reactive Protein 19.80 H Total Protein Albumin Urine WBC (Auto) Chest x-ray: image reviewed (no acute process; hyperinflation suggested) Allied health notes reviewed: nursing
--- NOTE | 2017-07-11 17:41 | XRay Report ---
FINAL REPORT PROCEDURE: Abdomen. TECHNIQUE: Portable AP supine view. HISTORY: Postop. COMPARISON: No prior studies are available for comparison. FINDINGS: The bowel gas pattern is nonspecific. There is no definite obstruction. The soft tissues are unremarkable. The regional skeleton appears intact. There are midline and right lower quadrant skin glo. IMPRESSION: No evidence of acute abdominal disease.
--- NOTE | 2017-07-11 18:49 | Progress Note ---
Assessment and Plan Pelvic abscess and wound dehiscence - s/p recent surgery on last admission -Patient placed on IV broad-spectrum antibiotics -Will follow up blood culture/ wound cx results -urgent consult was placed in the ED for the surgeon Dr. Lopez, - plan for conservative Mx for now - fistulogram obtained and showed sinus tract draining intra-abdominal collection - Patient also placed on TPN Severe sepsis secondary to the pelvic abscess and bacteremia -patient placed on sepsis protocol -Culture growing Escherichia coli, we'll follow final results. - ID on board Hypotension secondary to the sepsis -Patient's blood pressure responded to IV hydration -He will be continued on maintenance IV fluid with blood pressure monitoring. Recurrent right inguinal hernia -The surgeon has been consulted. Conservative management for now Transaminitis likely secondary to sepsis -Will continue to monitor his liver function test levels Acute kidney injury -Patient will be placed on IV fluid, will monitor his creatinine level - Cr normal today Acute anemia -WIll monitor his H/H and transfuse as needed. Prophylaxis -DVT prophylaxis with SCD and GI prophylaxis with Protonix Brief history: Patient is a 61 year old -N[place]alese male who presented to the ED on account of foul smelling drainage from his surgical wound on his abdomen. The patient was discharged from the hospital just a day ago after undergoing open laparotomy for a right inguinal hernia with small bowel obstruction. Radiological data: Fistulogram: A small draining sinus was identified in the right lower quadrant abdominal wall. The sinus tract that appears to communicate with a blind ending collection such as an abscess. No complication with bowel loops is appreciated. CT abdomen and pelvis with contrast: Continue to recurrent large right inguinal Hernia Extending into the Scrotum. Possible Large Pelvic Abscess Versus an Opacified Bowel Loops. Chest x-ray: No evidence of acute cardiopulmonary disease Physical exam: General appearance: Present: elderly male, other (ill looking) - EENT Eyes: Present: PERRL, EOM intact ENT: hearing intact, clear oral mucosa - Neck Neck: Present: supple, normal ROM - Respiratory Respiratory effort: normal Respiratory: bilateral: CTA - Cardiovascular Rhythm: other (tachycardia with regular rhythm) Heart Sounds: Present: S1 & S2. Absent: rub, click - Extremities Extremities: pulses symmetrical, No edema Peripheral Pulses: within normal limits - Abdominal General gastrointestinal: Present: soft, tender (generalized), distended, normal bowel sounds, other (foul smelling discharge from the surgical site collecting on the collectomy bag) Male genitourinary: Present: right scrotal swelling - Integumentary Integumentary: Present: erythema (with drainage from abdominal surgical wound) - Musculoskeletal Musculoskeletal: other (generalized weakness) - Psychiatric Psychiatric: appropriate mood/affect, intact judgment & insight - Neurologic Neurologic: CNII-XII intact Subjective Date of service: 07/11/17 Principal diagnosis: Severe Sepsis; Intra-Abdominal Abscess; Gram negative bacteremia Interval history: Pt seen and examined c/o abdominal pain and scrotal swelling less amount foul-smelling black greenish discharge from the abdominal wall open wound than prior Objective - Constitutional Vitals: Vital Signs - 12hr 07/11/17 07/11/17 07/11/17 07:07 07:08 07:54 Temperature 98.9 F 98.9 F Pulse Rate 106 H 101 H Respiratory 18 Rate Blood Pressure 128/69 Blood Pressure [Right] O2 Sat by Pulse 98 99 Oximetry 07/11/17 07/11/17 07/11/17 12:57 12:58 13:27 Temperature 99.2 F Pulse Rate 95 H 92 H 94 H Respiratory 18 Rate Blood Pressure Blood Pressure 128/66 [Right] O2 Sat by Pulse 99 99 98 Oximetry 07/11/17 07/11/17 15:35 15:36 Temperature 98.9 F Pulse Rate 89 91 H Respiratory 18 Rate Blood Pressure 127/62 Blood Pressure [Right] O2 Sat by Pulse 98 98 Oximetry - Labs CBC & Chem 7: 07/12/17 12:44 07/12/17 08:06 Labs: Abnormal lab results 07/11/17 07/11/17 07/11/17 Range/Units 00:52 05:41 05:41 WBC 16.9 H 16.2 H (4.5-11.0) K/mm3 RBC 2.55 L 2.74 L (3.65-5.03) M/mm3 Hgb 7.9 L 8.8 L (11.8-15.2) gm/dl Hct 24.5 L 25.7 L (35.5-45.6) % MCV 96 H (84-94) fl Lymph % (Auto) 6.2 L (13.4-35.0) % Lymph # 1.0 L (1.2-5.4) K/mm3 [place] # 1.0 H (0.0-0.8) K/mm3 Seg Neutrophils % 86.8 H (40.0-70.0) % Seg Neutrophils # 14.1 H (1.8-7.7) K/mm3 Creatinine 0.7 L (0.8-1.5) mg/dL POC Glucose (70-105) Calcium 8.2 L (8.4-10.2) mg/dL C-Reactive Protein (0.00-1.30) mg/dL 07/11/17 07/11/17 Range/Units 05:41 16:41 WBC (4.5-11.0) K/mm3 RBC (3.65-5.03) M/mm3 Hgb (11.8-15.2) gm/dl Hct (35.5-45.6) % MCV (84-94) fl Lymph % (Auto) (13.4-35.0) % Lymph # (1.2-5.4) K/mm3 [place] # (0.0-0.8) K/mm3 Seg Neutrophils % (40.0-70.0) % Seg Neutrophils # (1.8-7.7) K/mm3 Creatinine (0.8-1.5) mg/dL POC Glucose 112 H (70-105) Calcium (8.4-10.2) mg/dL C-Reactive Protein 19.80 H (0.00-1.30) mg/dL
[2017-07-11] MEDS ORDERED: TPN ADULT 2,400 ML IV SCH (20:00)
[2017-07-12] MEDS: FLAGYL 500 MG/100 ML 500 MG/100 ML BAG IV SCH ×3 (00:08→16:58)
[2017-07-12] MEDS: MORPHINE IV PRN ×5 (01:49→21:32)
[2017-07-12] MEDS: MAXIPIME 2 GM in NACL 0.9% 20 ML IV SCH ×2 (06:21→13:20)
[2017-07-12 08:38] LABS: BUN/Creatinine Ratio 33; Blood Urea Nitrogen 20 mg/dL (9-20)
[2017-07-12 08:39] LABS: Calcium 7.9 mg/dL (8.4-10.2); Hemolysis Index 4
[2017-07-12] MEDS: HABITROL TD SCH (09:13)
[2017-07-12] MEDS: HEPARIN SUB-Q SCH ×2 (09:13→21:23)
[2017-07-12] MEDS: PEPCID IV SCH ×2 (09:14→21:24)
[2017-07-12] MEDS: SODIUM CHLORIDE FLUSH SYRINGE 10 ML IV SCH ×2 (09:22→21:26)
--- NOTE | 2017-07-12 11:55 | Progress Note ---
Assessment and Plan Severe sepsis syndrome with hypotension. Post-surgical wound dehiscence and cellulitis with pelvic abscess formation. Recurrent right inguinal hernia, status post exploratory laparotomy and bowel resection. Leukocytosis. Anemia, microcytic. Acute kidney injury. Lactic acidosis. Protein-calorie malnutrition. Urinary tract infection. Tobacco use disorder - prn oxygen for sats > 90% - continue antibiotics per ID recs (changed to Merrem) - continue wound care per RN / WCT - surgical evaluation ongoing - growing E-Coli in blood - gentle hydration while monitoring Bun?cr levels and I's & O's - prn H&H - continue GI & VTE prophylaxis - continue other care per attending / other consultants ...25' Subjective Date of service: 07/12/17 Principal diagnosis: Severe Sepsis; Intra-Abdominal Abscess; Gram negative bacteremia Interval history: Patient is seen today for: Severe Sepsis; Intra-Abdominal Abscess; Gram negative bacteremia Seen and examined at bedside; 24hour events reviewed; nursing and respiratory care staff consulted; no adverse overnight events reported to me; resting peacefully in bed; off vasopressors; denies acute chest pains or increased SOB; on supplemental oxygen per NC; no cough or hemoptysis Objective Vital Signs - 12hr 07/12/17 07/12/17 07/12/17 00:32 05:47 07:50 Temperature 98.8 F 99.1 F Pulse Rate 83 83 72 Respiratory 18 20 Rate Blood Pressure 106/60 113/71 O2 Sat by Pulse 97 97 95 Oximetry 07/12/17 07/12/17 07:51 11:42 Temperature 99.3 F 98.7 F Pulse Rate 82 Respiratory 18 18 Rate Blood Pressure 119/67 106/58 O2 Sat by Pulse 96 Oximetry Constitutional: no acute distress, alert Eyes: non-icteric ENT: oropharynx moist, other (mallampatti 2) Neck: supple, no lymphadenopathy, no JVD, other (no thyromegaly) Effort: mildly labored Ascultation: Bilateral: clear, diminished breath sounds (bases) Percussion: Bilateral: not dull Cardiovascular: regular rate and rhythm, other (no R/M) Gastrointestinal: hypoactive bowel sounds, soft, non-tender, non-distended, other (midline retention sutures with drainage at suprapubic level; + ostomy bag ) Integumentary: normal Extremities: no cyanosis, no edema, pulses normal, no ischemia or petechiae Neurologic: normal mental status, non-focal exam, pupils equal and round, motor strength normal and Psychiatric: mood appropriate, affect normal CBC and BMP: 07/12/17 12:44 07/13/17 04:20 ABG, PT/INR, D-dimer: PT/INR, D-dimer PT 16.9 Sec. (12.2-14.9) H 07/08/17 18:05 INR 1.30 (0.87-1.13) H 07/08/17 18:05 Abnormal lab findings: Abnormal Labs 07/08/17 07/08/17 07/08/17 16:30 18:05 18:05 WBC 58.7 H* RBC 3.13 L Hgb 9.6 L Hct 29.8 L MCV 95 H RDW Lymph % (Auto) Lymph # [place] # Seg Neutrophils % Seg Neuts % (Manual) 70.5 H Lymphocytes % (Manual) 2.5 L Seg Neutrophils # Seg Neutrophils # Man 41.4 H Lymphocytes # (Manual) Monocytes # (Manual) 1.5 H PT 16.9 H INR 1.30 H VBG pH Chloride Carbon Dioxide BUN Creatinine Glucose POC Glucose Lactic Acid Calcium Phosphorus Magnesium Total Bilirubin AST C-Reactive Protein Total Protein Albumin Urine WBC (Auto) 8.0 H 07/08/17 07/08/17 07/08/17 18:05 18:05 18:05 WBC RBC Hgb Hct MCV RDW Lymph % (Auto) Lymph # [place] # Seg Neutrophils % Seg Neuts % (Manual) Lymphocytes % (Manual) Seg Neutrophils # Seg Neutrophils # Man Lymphocytes # (Manual) Monocytes # (Manual) PT INR VBG pH 7.443 H Chloride 96.2 L Carbon Dioxide 19 L BUN 29 H Creatinine 1.9 H D Glucose 143 H POC Glucose Lactic Acid 6.50 H* Calcium 8.2 L Phosphorus Magnesium Total Bilirubin 1.40 H AST 60 H C-Reactive Protein Total Protein 6.1 L Albumin 2.4 L Urine WBC (Auto) 07/08/17 07/08/17 07/09/17 18:41 20:10 06:57 WBC 43.0 H* RBC 2.66 L Hgb 8.2 L Hct 25.1 L MCV 95 H RDW Lymph % (Auto) Lymph # [place] # Seg Neutrophils % Seg Neuts % (Manual) 91.5 H Lymphocytes % (Manual) 2.0 L Seg Neutrophils # Seg Neutrophils # Man 39.3 H Lymphocytes # (Manual) 0.9 L Monocytes # (Manual) 1.9 H PT INR VBG pH Chloride Carbon Dioxide BUN Creatinine Glucose POC Glucose Lactic Acid 6.50 H* 3.80 H* Calcium Phosphorus Magnesium Total Bilirubin AST C-Reactive Protein Total Protein Albumin Urine WBC (Auto) 07/09/17 07/09/17 07/09/17 06:57 13:26 19:28 WBC RBC Hgb Hct MCV RDW Lymph % (Auto) Lymph # [place] # Seg Neutrophils % Seg Neuts % (Manual) Lymphocytes % (Manual) Seg Neutrophils # Seg Neutrophils # Man Lymphocytes # (Manual) Monocytes # (Manual) PT INR VBG pH Chloride 110.5 H Carbon Dioxide 21 L BUN 27 H Creatinine Glucose 109 H POC Glucose 118 H 124 H Lactic Acid Calcium 6.9 L D Phosphorus Magnesium 1.60 L Total Bilirubin AST C-Reactive Protein Total Protein 5.1 L Albumin 2.1 L Urine WBC (Auto) 07/10/17 07/10/17 07/10/17 04:16 04:16 06:07 WBC 26.8 H RBC 2.85 L Hgb 8.7 L Hct 27.7 L MCV 97 H RDW 15.4 H Lymph % (Auto) Lymph # [place] # Seg Neutrophils % Seg Neuts % (Manual) 93.0 H Lymphocytes % (Manual) 3.0 L Seg Neutrophils # Seg Neutrophils # Man 24.9 H Lymphocytes # (Manual) 0.8 L Monocytes # (Manual) PT INR VBG pH Chloride 109.8 H Carbon Dioxide BUN Creatinine Glucose 108 H POC Glucose 128 H Lactic Acid Calcium 7.7 L Phosphorus 1.90 L Magnesium Total Bilirubin AST C-Reactive Protein Total Protein Albumin Urine WBC (Auto) 07/10/17 07/11/17 07/11/17 11:57 00:52 05:41 WBC 16.9 H RBC 2.55 L Hgb 7.9 L Hct 24.5 L MCV 96 H RDW Lymph % (Auto) Lymph # [place] # Seg Neutrophils % Seg Neuts % (Manual) Lymphocytes % (Manual) Seg Neutrophils # Seg Neutrophils # Man Lymphocytes # (Manual) Monocytes # (Manual) PT INR VBG pH Chloride Carbon Dioxide BUN Creatinine 0.7 L Glucose POC Glucose 106 H Lactic Acid Calcium 8.2 L Phosphorus Magnesium Total Bilirubin AST C-Reactive Protein Total Protein Albumin Urine WBC (Auto) 07/11/17 07/11/17 07/11/17 05:41 05:41 16:41 WBC 16.2 H RBC 2.74 L Hgb 8.8 L Hct 25.7 L MCV RDW Lymph % (Auto) 6.2 L Lymph # 1.0 L [place] # 1.0 H Seg Neutrophils % 86.8 H Seg Neuts % (Manual) Lymphocytes % (Manual) Seg Neutrophils # 14.1 H Seg Neutrophils # Man Lymphocytes # (Manual) Monocytes # (Manual) PT INR VBG pH Chloride Carbon Dioxide BUN Creatinine Glucose POC Glucose 112 H Lactic Acid Calcium Phosphorus Magnesium Total Bilirubin AST C-Reactive Protein 19.80 H Total Protein Albumin Urine WBC (Auto) 07/11/17 07/12/17 07/12/17 22:28 06:00 08:06 WBC RBC Hgb Hct MCV RDW Lymph % (Auto) Lymph # [place] # Seg Neutrophils % Seg Neuts % (Manual) Lymphocytes % (Manual) Seg Neutrophils # Seg Neutrophils # Man Lymphocytes # (Manual) Monocytes # (Manual) PT INR VBG pH Chloride Carbon Dioxide BUN Creatinine 0.6 L Glucose 117 H POC Glucose 118 H 122 H Lactic Acid Calcium 7.9 L Phosphorus Magnesium Total Bilirubin AST C-Reactive Protein Total Protein Albumin Urine WBC (Auto) 07/12/17 11:35 WBC RBC Hgb Hct MCV RDW Lymph % (Auto) Lymph # [place] # Seg Neutrophils % Seg Neuts % (Manual) Lymphocytes % (Manual) Seg Neutrophils # Seg Neutrophils # Man Lymphocytes # (Manual) Monocytes # (Manual) PT INR VBG pH Chloride Carbon Dioxide BUN Creatinine Glucose POC Glucose 116 H Lactic Acid Calcium Phosphorus Magnesium Total Bilirubin AST C-Reactive Protein Total Protein Albumin Urine WBC (Auto) Allied health notes reviewed: nursing
[2017-07-12 12:59] LABS: Hematocrit 27.8 % (35.5-45.6); Hemoglobin 8.9 gm/dl (11.8-15.2); Mean Corpuscular HGB Conc 32 % (32-34); Mean Corpuscular Hemoglobin 31 pg (28-32); Mean Corpuscular Volume 96 fl (84-94); Platelet Count 397 K/mm3 (140-440); Red Blood Count 2.91 M/mm3 (3.65-5.03); Red Cell Distribution Width 14.9 % (13.2-15.2)
--- NOTE | 2017-07-12 15:03 | Progress Note ---
Assessment and Plan Pelvic abscess and wound dehiscence - s/p recent surgery on last admission(06/30) -Patient placed on IV broad-spectrum antibiotics -Will follow up blood culture/ wound cx results -urgent consult was placed in the ED for the surgeon Dr. Lopez, - plan for conservative Mx for now - fistulogram obtained and showed sinus tract draining intra-abdominal collection - Patient also placed on TPN Severe sepsis secondary to the pelvic abscess and bacteremia -patient placed on sepsis protocol -wound Culture growing Escherichia coli and MDR Enterobacter, - blood cx positive for E. coli - ID on board, placed on meropenem and levaquin Hypotension secondary to the sepsis -Patient's blood pressure responded to IV hydration -He will be continued on maintenance IV fluid with blood pressure monitoring. Recurrent right inguinal hernia -The surgeon has been consulted. Conservative management for now Transaminitis likely secondary to sepsis -Will continue to monitor his liver function test levels Acute kidney injury from severe sepsis -Patient will be placed on IV fluid, will monitor his creatinine level - Cr now normal Acute anemia -WIll monitor his H/H and transfuse as needed. Prophylaxis -DVT prophylaxis with SCD and GI prophylaxis with Protonix Brief history: Patient is a 61 year old -[place] male who presented to the ED on account of foul smelling drainage from his surgical wound on his abdomen. The patient was discharged from the hospital just a day ago after undergoing open laparotomy for a right inguinal hernia with small bowel obstruction. Radiological data: Fistulogram: A small draining sinus was identified in the right lower quadrant abdominal wall. The sinus tract that appears to communicate with a blind ending collection such as an abscess. No complication with bowel loops is appreciated. CT abdomen and pelvis with contrast: Continue to recurrent large right inguinal Hernia Extending into the Scrotum. Possible Large Pelvic Abscess Versus an Opacified Bowel Loops. Chest x-ray: No evidence of acute cardiopulmonary disease Abdominal xry: no acute finding Physical exam: General appearance: Present: elderly male, other (ill looking) - EENT Eyes: Present: PERRL, EOM intact ENT: hearing intact, clear oral mucosa - Neck Neck: Present: supple, normal ROM - Respiratory Respiratory effort: normal Respiratory: bilateral: CTA - Cardiovascular Rhythm: other (tachycardia with regular rhythm) Heart Sounds: Present: S1 & S2. Absent: rub, click - Extremities Extremities: pulses symmetrical, No edema Peripheral Pulses: within normal limits - Abdominal General gastrointestinal: Present: soft, tender (generalized), distended, normal bowel sounds, other (foul smelling discharge from the surgical site collecting on the collectomy bag) Male genitourinary: Present: right scrotal swelling - Integumentary Integumentary: Present: erythema (with drainage from abdominal surgical wound) - Musculoskeletal Musculoskeletal: other (generalized weakness) - Psychiatric Psychiatric: appropriate mood/affect, intact judgment & insight - Neurologic Neurologic: CNII-XII intact Subjective Date of service: 07/12/17 Principal diagnosis: Severe Sepsis; Intra-Abdominal Abscess; Gram negative bacteremia Interval history: Pt seen and examined c/o abdominal pain and scrotal swelling less amount foul-smelling black greenish discharge from the abdominal wall open wound than prior Objective - Constitutional Vitals: Vital Signs - 12hr 07/12/17 07/12/17 07/12/17 05:47 07:50 07:51 Temperature 99.1 F 99.3 F Pulse Rate 83 72 Respiratory 20 18 Rate Blood Pressure 113/71 119/67 O2 Sat by Pulse 97 95 Oximetry 07/12/17 11:42 Temperature 98.7 F Pulse Rate 82 Respiratory 18 Rate Blood Pressure 106/58 O2 Sat by Pulse 96 Oximetry - Labs CBC & Chem 7: 07/12/17 12:44 07/12/17 08:06 Labs: Abnormal lab results 07/11/17 07/11/17 07/12/17 Range/Units 16:41 22:28 06:00 WBC (4.5-11.0) K/mm3 RBC (3.65-5.03) M/mm3 Hgb (11.8-15.2) gm/dl Hct (35.5-45.6) % MCV (84-94) fl Creatinine (0.8-1.5) mg/dL Glucose (75-100) mg/dL POC Glucose 112 H 118 H 122 H (70-105) Calcium (8.4-10.2) mg/dL 07/12/17 07/12/17 07/12/17 Range/Units 08:06 11:35 12:44 WBC 13.7 H (4.5-11.0) K/mm3 RBC 2.91 L (3.65-5.03) M/mm3 Hgb 8.9 L (11.8-15.2) gm/dl Hct 27.8 L (35.5-45.6) % MCV 96 H (84-94) fl Creatinine 0.6 L (0.8-1.5) mg/dL Glucose 117 H (75-100) mg/dL POC Glucose 116 H (70-105) Calcium 7.9 L (8.4-10.2) mg/dL
--- NOTE | 2017-07-12 17:36 | Progress Note ---
Assessment and Plan Assessment: 1) Severe sepsis: better. Etiology most likely surgical wound infection +/- intra-abdominal abscess +/- E coli bacteremia. 2) E coli bacteremia: from surgical site infection -Blood cx /3 E coli -Repeat blood cx no growth so far -CRP=19 3) Surgical wound infection ?dehiscence ? leak with intra-abdominal abscess vs. collection -Wound cx /3 E coli and MDR Enterobacter -Ct abd showed continued or recurrent large right inguinal canal hernia extending into scrotum and possible large pelvic abscess. -Fistulogram showed positive sinus tract communicating with blind end presumedly a collection. 4) LEIGHA - better 5) Elevated ELFs - likely from sepsis 6) Recent small bowel gangrene secondary to incarcerated inguinal hernia -Status post bowel resection on 06/30 Plan: -repeat blood cultures -Surgical consult r/o leak ? -Consider IR evaluation for collection drainage if OK with surgery - pending -stop cefepime and flagyl - Enterobacter resistant to cefepime, sens to meropenem and levaquin -start meropenem Thank you for your consultation, will follow up with you. Johana Mcqueen MD Infectious Diseases Specialist [facility] ([facility] M [phone] O [phone] Subjective Date of service: 07/12/17 Principal diagnosis: Severe Sepsis; Intra-Abdominal Abscess; Gram negative bacteremia Interval history: Feels better, c/o painful flatulence. Microbiology: Blood cultures: /3 E coli 5/6 ngtd Urine cultures: /3 <10K Respiratory cultures: Wound cultures: 5/3 E coli and MRD Enterobacter Stool cultures: Other: Current Antimicrobials: Flagyl 5/4 Vancomycin 5/4 Cefepime 5/4 Previous Antimicrobials: Objective - Exam Narrative Exam: General appearance: Alert in NAD, conversant Eyes: anicteric sclerae, moist conjunctivae; no lid-lag; PERRLA HENT: Atraumatic; oropharynx clear poor dentition Neck: Trachea midline; supple, no thyromegaly or lymphadenopathy Lungs: CTA, with normal respiratory effort and no intercostal retractions CV: RRR, no murmurs Abdomen: Soft, +wound care pictures reviewed +ostomy Extremities: No peripheral edema or extremity lymphadenopathy Skin: Normal temperature, turgor and texture; no rash, ulcers or subcutaneous nodules Psych: Appropriate affect, alert and oriented to person, place and time. Neuro: alert and oriented x 3. Moving all extermities Lines: No CVL / PICC - Constitutional Vitals: Vital Signs Temp Pulse Resp BP Pulse Ox 98.9 F 83 18 107/62 99 07/12/17 16:32 07/12/17 16:32 07/12/17 16:32 07/12/17 16:32 07/12/17 16:32 Temperature -Last 24 Hours Temperature 98.9 F Temperature 98.7 F Temperature 99.3 F Temperature 99.1 F Temperature 98.8 F Temperature 98.9 F - Labs CBC & Chem 7: 07/12/17 12:44 07/12/17 08:06 Labs: Abnormal lab results 07/11/17 07/12/17 07/12/17 Range/Units 22:28 06:00 08:06 WBC (4.5-11.0) K/mm3 RBC (3.65-5.03) M/mm3 Hgb (11.8-15.2) gm/dl Hct (35.5-45.6) % MCV (84-94) fl Creatinine 0.6 L (0.8-1.5) mg/dL Glucose 117 H (75-100) mg/dL POC Glucose 118 H 122 H (70-105) Calcium 7.9 L (8.4-10.2) mg/dL 07/12/17 07/12/17 07/12/17 Range/Units 11:35 12:44 17:07 WBC 13.7 H (4.5-11.0) K/mm3 RBC 2.91 L (3.65-5.03) M/mm3 Hgb 8.9 L (11.8-15.2) gm/dl Hct 27.8 L (35.5-45.6) % MCV 96 H (84-94) fl Creatinine (0.8-1.5) mg/dL Glucose (75-100) mg/dL POC Glucose 116 H 116 H (70-105) Calcium (8.4-10.2) mg/dL
[2017-07-12] MEDS: MERREM 1,000 MG in NACL 0.9% 100 ML IV SCH (18:51)
[2017-07-12] MEDS ORDERED: TPN ADULT 2,400 ML IV SCH (20:00)
[2017-07-12] MEDS ORDERED: INTRALIPID 20% 250 ML IV SCH (20:00)
[2017-07-13] MEDS: MORPHINE IV PRN ×5 (01:57→18:01)
[2017-07-13] MEDS: MERREM 1,000 MG in NACL 0.9% 100 ML IV SCH ×4 (03:00→22:31)
[2017-07-13 05:44] LABS: BUN/Creatinine Ratio 32; Blood Urea Nitrogen 19 mg/dL (9-20); Hemolysis Index 3
[2017-07-13] MEDS: HEPARIN SUB-Q SCH ×2 (12:45→22:18)
[2017-07-13] MEDS: HABITROL TD SCH (12:45)
[2017-07-13] MEDS: PEPCID IV SCH ×2 (12:47→22:17)
[2017-07-13] MEDS: SODIUM CHLORIDE FLUSH SYRINGE 10 ML IV SCH ×2 (12:48→22:20)
--- NOTE | 2017-07-13 13:13 | Event Note ---
Date: 07/13/17 Doing better Will see prn at this point
--- NOTE | 2017-07-13 13:46 | Progress Note ---
Assessment and Plan Assessment: 1) Severe sepsis: better. Etiology most likely surgical wound infection +/- intra-abdominal abscess +/- E coli bacteremia. 2) E coli bacteremia: from surgical site infection -Blood cx 5/ E coli -Repeat blood cx no growth so far -CRP=19 3) Surgical wound infection ?dehiscence ? leak with intra-abdominal abscess vs. collection +still right groin wound with copious green drainage to the skin and dressings -Wound cx / E coli and MDR Enterobacter -Ct abd showed continued or recurrent large right inguinal canal hernia extending into scrotum and possible large pelvic abscess. -Fistulogram showed positive sinus tract communicating with blind end presumedly a collection. 4) LEIGHA - better 5) Elevated ELFs - likely from sepsis 6) Recent small bowel gangrene secondary to incarcerated inguinal hernia -Status post bowel resection on 06/30 Plan: -discussed with Dr Lopez +still right groin wound with copious green drainage to the skin and dressings -wound care to contain drainage and quantify -continue meropenem D2 -contact isolation Discussed with Dr Lopez Thank you for your consultation, will follow up with you. Johana Mcqueen MD Infectious Diseases Specialist [facility] ([facility] M [phone] O [phone] Subjective Date of service: 07/13/17 Principal diagnosis: Severe Sepsis; Intra-Abdominal Abscess; Gram negative bacteremia Interval history: Feels ok c/o copious green leakage from right groin wound Microbiology: Blood cultures: 5/3 E coli 5/6 ngtd Urine cultures: /3 <10K Respiratory cultures: Wound cultures: 5/3 E coli and MRD Enterobacter Stool cultures: Other: Current Antimicrobials: meropenem 5/ Previous Antimicrobials: Flagyl 5/ Vancomycin 5/4 Cefepime 5/ Objective - Exam Narrative Exam: General appearance: Alert in NAD, conversant Eyes: anicteric sclerae, moist conjunctivae; no lid-lag; PERRLA HENT: Atraumatic; oropharynx clear poor dentition Neck: Trachea midline; supple, no thyromegaly or lymphadenopathy Lungs: CTA, with normal respiratory effort and no intercostal retractions CV: RRR, no murmurs Abdomen: Soft, +midline wound +right groin woud with copious green drainage to the skin and dressings Extremities: No peripheral edema or extremity lymphadenopathy Skin: Normal temperature, turgor and texture; no rash, ulcers or subcutaneous nodules Psych: Appropriate affect, alert and oriented to person, place and time. Neuro: alert and oriented x 3. Moving all extermities Lines: No CVL / PICC - Constitutional Vitals: Vital Signs Temp Pulse Resp BP Pulse Ox 99.4 F 94 H 20 102/62 97 07/13/17 05:28 07/13/17 05:25 07/13/17 12:46 07/13/17 05:25 07/13/17 05:25 Temperature -Last 24 Hours Temperature 99.4 F Temperature 99.4 F Temperature 98.6 F Temperature 98.9 F - Labs CBC & Chem 7: 07/12/17 12:44 07/13/17 04:20 Labs: Abnormal lab results 07/12/17 07/13/17 07/13/17 Range/Units 17:07 00:31 04:20 Creatinine 0.6 L (0.8-1.5) mg/dL Glucose 110 H (75-100) mg/dL POC Glucose 116 H 133 H (70-105) Calcium 8.0 L (8.4-10.2) mg/dL 07/13/17 07/13/17 Range/Units 06:00 12:49 Creatinine (0.8-1.5) mg/dL Glucose (75-100) mg/dL POC Glucose 122 H 120 H (70-105) Calcium (8.4-10.2) mg/dL
--- NOTE | 2017-07-13 14:36 | Progress Note ---
Assessment and Plan Assessment and plan: Pelvic abscess and wound dehiscence s/p recent surgery on last admission(06/30) Patient placed on IV broad-spectrum antibiotics Will follow up blood culture/ wound cx results Dr. Lopez following plan for conservative Mx for now fistulogram obtained and showed sinus tract draining intra-abdominal collection Patient also placed on TPN Severe sepsis secondary to the pelvic abscess and bacteremia patient placed on sepsis protocol wound Culture growing Escherichia coli and MDR Enterobacter, blood cx positive for E. coli ID on board, Continue meropenem and levaquin Hypotension secondary to sepsis Patient's blood pressure responded to IV hydration He will be continued on maintenance IV fluid with blood pressure monitoring. Recurrent right inguinal hernia The surgeon has been consulted. Conservative management for now Transaminitis likely secondary to sepsis Will continue to monitor his liver function test levels Acute kidney injury from severe sepsis Patient will be placed on IV fluid, will monitor his creatinine level Cr now normal Acute anemia WIll monitor his H/H and transfuse as needed. Prophylaxis DVT prophylaxis with SCD and GI prophylaxis with Protonix Full code status History Interval history: Asking about eating food, Mild abdominal pain Hospitalist Physical - Physical exam Narrative exam: General:Not in acute distress, lying in bed, HEENT:Normocephalic, atraumatic Neck:supple,no JVD Lungs: Clear to auscultation, no rales, no wheeze Heart:S1 and S2 regular, no murmurs, rubs or gallop Abd: soft, dressing over abdominal wound, drainage, norml bowel sounds Ext:no edema, no clubbing or cyanosis Neuro:Awake,alert,oriented x 3, moves all extremities, Psych:normal mood - Constitutional Vitals: Temp Pulse Resp BP Pulse Ox 99.4 F 94 H 20 102/62 97 07/13/17 05:28 07/13/17 05:25 07/13/17 12:46 07/13/17 05:25 07/13/17 05:25 General appearance: Present: no acute distress, other (ill looking) Results - Labs CBC & Chem 7: 07/12/17 12:44 07/16/17 05:45 Labs: Laboratory Last Values WBC 13.7 K/mm3 (4.5-11.0) H 07/12/17 12:44 RBC 2.91 M/mm3 (3.65-5.03) L 07/12/17 12:44 Hgb 8.9 gm/dl (11.8-15.2) L 07/12/17 12:44 Hct 27.8 % (35.5-45.6) L 07/12/17 12:44 MCV 96 fl (84-94) H 07/12/17 12:44 MCH 31 pg (28-32) 07/12/17 12:44 MCHC 32 % (32-34) 07/12/17 12:44 RDW 14.9 % (13.2-15.2) 07/12/17 12:44 Plt Count 397 K/mm3 (140-440) 07/12/17 12:44 Lymph % (Auto) 6.2 % (13.4-35.0) L 07/11/17 05:41 [place] % (Auto) 6.3 % (0.0-7.3) 07/11/17 05:41 Eos % (Auto) 0.6 % (0.0-4.3) 07/11/17 05:41 Baso % (Auto) 0.1 % (0.0-1.8) 07/11/17 05:41 Lymph # 1.0 K/mm3 (1.2-5.4) L 07/11/17 05:41 [place] # 1.0 K/mm3 (0.0-0.8) H 07/11/17 05:41 Eos # 0.1 K/mm3 (0.0-0.4) 07/11/17 05:41 Baso # 0.0 K/mm3 (0.0-0.1) 07/11/17 05:41 Add Manual Diff Complete 07/10/17 04:16 Total Counted 100 07/10/17 04:16 Seg Neutrophils % 86.8 % (40.0-70.0) H 07/11/17 05:41 Seg Neuts % (Manual) 93.0 % (40.0-70.0) H 07/10/17 04:16 Band Neutrophils % 1.0 % 07/10/17 04:16 Lymphocytes % (Manual) 3.0 % (13.4-35.0) L 07/10/17 04:16 Reactive Lymphs % (Man) 0 % 07/10/17 04:16 Monocytes % (Manual) 3.0 % (0.0-7.3) 07/10/17 04:16 Eosinophils % (Manual) 0 % (0.0-4.3) 07/10/17 04:16 Basophils % (Manual) 0 % (0.0-1.8) 07/10/17 04:16 Metamyelocytes % 0 % 07/10/17 04:16 Myelocytes % 0 % 07/10/17 04:16 Promyelocytes % 0 % 07/10/17 04:16 Blast Cells % 0 % 07/10/17 04:16 Nucleated RBC % Not Reportable 07/10/17 04:16 Seg Neutrophils # 14.1 K/mm3 (1.8-7.7) H 07/11/17 05:41 Seg Neutrophils # Man 24.9 K/mm3 (1.8-7.7) H 07/10/17 04:16 Band Neutrophils # 0.3 K/mm3 07/10/17 04:16 Lymphocytes # (Manual) 0.8 K/mm3 (1.2-5.4) L 07/10/17 04:16 Abs React Lymphs (Man) 0.0 K/mm3 07/10/17 04:16 Monocytes # (Manual) 0.8 K/mm3 (0.0-0.8) 07/10/17 04:16 Eosinophils # (Manual) 0.0 K/mm3 (0.0-0.4) 07/10/17 04:16 Basophils # (Manual) 0.0 K/mm3 (0.0-0.1) 07/10/17 04:16 Metamyelocytes # 0.0 K/mm3 07/10/17 04:16 Myelocytes # 0.0 K/mm3 07/10/17 04:16 Promyelocytes # 0.0 K/mm3 07/10/17 04:16 Blast Cells # 0.0 K/mm3 07/10/17 04:16 WBC Morphology Not Reportable 07/10/17 04:16 Hypersegmented Neuts Not Reportable 07/10/17 04:16 Hyposegmented Neuts Not Reportable 07/10/17 04:16 Hypogranular Neuts Not Reportable 07/10/17 04:16 Smudge Cells Not Reportable 07/10/17 04:16 Toxic Granulation Not Reportable 07/10/17 04:16 Toxic Vacuolation Not Reportable 07/10/17 04:16 Dohle Bodies Not Reportable 07/10/17 04:16 Pelger-Huet Anomaly Not Reportable 07/10/17 04:16 Winter Rods Not Reportable 07/10/17 04:16 Platelet Estimate Appears normal 07/10/17 04:16 Clumped Platelets Not Reportable 07/10/17 04:16 Plt Clumps, EDTA Not Reportable 07/10/17 04:16 Large Platelets Not Reportable 07/10/17 04:16 Giant Platelets Not Reportable 07/10/17 04:16 Platelet Satelliting Not Reportable 07/10/17 04:16 Plt Morphology Comment Not Reportable 07/10/17 04:16 RBC Morphology Not Reportable 07/10/17 04:16 Dimorphic RBCs Not Reportable 07/10/17 04:16 Polychromasia Not Reportable 07/10/17 04:16 Hypochromasia 1+ 07/10/17 04:16 Poikilocytosis Not Reportable 07/10/17 04:16 Anisocytosis 1+ 07/10/17 04:16 Microcytosis Not Reportable 07/10/17 04:16 Macrocytosis Not Reportable 07/10/17 04:16 Spherocytes Not Reportable 07/10/17 04:16 Pappenheimer Bodies Not Reportable 07/10/17 04:16 Sickle Cells Not Reportable 07/10/17 04:16 Target Cells Not Reportable 07/10/17 04:16 Tear Drop Cells Not Reportable 07/10/17 04:16 Ovalocytes 1+ 07/10/17 04:16 Helmet Cells Not Reportable 07/10/17 04:16 [place] Bodies Not Reportable 07/10/17 04:16 [place] Rings Not Reportable 07/10/17 04:16 [place] Cells Not Reportable 07/10/17 04:16 Bite Cells Not Reportable 07/10/17 04:16 Crenated Cell Not Reportable 07/10/17 04:16 Elliptocytes Not Reportable 07/10/17 04:16 Acanthocytes (Spur) Not Reportable 07/10/17 04:16 Rouleaux Not Reportable 07/10/17 04:16 Hemoglobin C Crystals Not Reportable 07/10/17 04:16 Schistocytes Not Reportable 07/10/17 04:16 Malaria parasites Not Reportable 07/10/17 04:16 Erasmo Bodies Not Reportable 07/10/17 04:16 Hem Pathologist Commnt No 07/10/17 04:16 PT 16.9 Sec. (12.2-14.9) H 07/08/17 18:05 INR 1.30 (0.87-1.13) H 07/08/17 18:05 VBG pH 7.443 (7.320-7.420) H 07/08/17 18:05 Sodium 137 mmol/L (137-145) 07/13/17 04:20 Potassium 4.1 mmol/L (3.6-5.0) 07/13/17 04:20 Chloride 101.2 mmol/L (98-107) 07/13/17 04:20 Carbon Dioxide 27 mmol/L (22-30) 07/13/17 04:20 Anion Gap 13 mmol/L 07/13/17 04:20 BUN 19 mg/dL (9-20) 07/13/17 04:20 Creatinine 0.6 mg/dL (0.8-1.5) L 07/13/17 04:20 Estimated GFR > 60 ml/min 07/13/17 04:20 BUN/Creatinine Ratio 32 % 07/13/17 04:20 Glucose 110 mg/dL (75-100) H 07/13/17 04:20 POC Glucose 120 (70-105) H 07/13/17 12:49 Lactic Acid 1.10 mmol/L (0.7-2.0) 07/09/17 08:06 Calcium 8.0 mg/dL (8.4-10.2) L 07/13/17 04:20 Phosphorus 3.10 mg/dL (2.5-4.5) 07/13/17 04:20 Magnesium 1.90 mg/dL (1.7-2.3) 07/13/17 04:20 Total Bilirubin 0.50 mg/dL (0.1-1.2) 07/09/17 06:57 AST 37 units/L (5-40) 07/09/17 06:57 ALT 28 units/L (7-56) 07/09/17 06:57 Alkaline Phosphatase 83 units/L (35-129) 07/09/17 06:57 C-Reactive Protein 19.80 mg/dL (0.00-1.30) H 07/11/17 05:41 Total Protein 5.1 g/dL (6.3-8.2) L 07/09/17 06:57 Albumin 2.1 g/dL (3.9-5) L 07/09/17 06:57 Albumin/Globulin Ratio 0.7 % 07/09/17 06:57 Urine Color Yellow (Yellow) 07/08/17 16:30 Urine Turbidity Clear (Clear) 07/08/17 16:30 Urine pH 5.0 (5.0-7.0) 07/08/17 16:30 Ur Specific [place] 1.027 (1.003-1.030) 07/08/17 16:30 Urine Protein 30 mg/dl mg/dL (Negative) 07/08/17 16:30 Urine Glucose (UA) Neg mg/dL (Negative) 07/08/17 16:30 Urine Ketones Tr mg/dL (Negative) 07/08/17 16:30 Urine Blood Mod (Negative) 07/08/17 16:30 Urine Nitrite Neg (Negative) 07/08/17 16:30 Urine Bilirubin Neg (Negative) 07/08/17 16:30 Urine Urobilinogen < 2.0 mg/dL (<2.0) 07/08/17 16:30 Ur Leukocyte Esterase Tr (Negative) 07/08/17 16:30 Urine WBC (Auto) 8.0 /HPF (0.0-6.0) H 07/08/17 16:30 Urine RBC (Auto) 2.0 /HPF (0.0-6.0) 07/08/17 16:30 U Epithel Cells (Auto) < 1.0 /HPF (0-13.0) 07/08/17 16:30 Urine Mucus Few /HPF 07/08/17 16:30 Urine Yeast (Budding) 1+ /HPF 07/08/17 16:30 Blood Type O POSITIVE 07/08/17 23:29 Antibody Screen Negative 07/08/17 23:29
--- NOTE | 2017-07-13 15:02 | Progress Note ---
Subjective Patient Reports: Positive: feels better Narrative: still bilious drainge NPO on TPN , will check KUB in AM , NPO , Objective Vital Signs - 12hr 07/13/17 07/13/17 07/13/17 05:25 05:28 08:06 Temperature 99.4 F 99.4 F Pulse Rate 94 H Respiratory 17 20 Rate Blood Pressure 102/62 [Right] O2 Sat by Pulse 97 Oximetry 07/13/17 07/13/17 08:36 12:46 Temperature Pulse Rate Respiratory 16 20 Rate Blood Pressure [Right] O2 Sat by Pulse Oximetry - Labs 07/12/17 12:44 07/13/17 04:20 Diabetes panel 07/13/17 Range/Units 04:20 Sodium 137 (137-145) mmol/L Potassium 4.1 (3.6-5.0) mmol/L Chloride 101.2 (98-107) mmol/L Carbon Dioxide 27 (22-30) mmol/L BUN 19 (9-20) mg/dL Creatinine 0.6 L (0.8-1.5) mg/dL Glucose 110 H (75-100) mg/dL Calcium 8.0 L (8.4-10.2) mg/dL Calcium panel 07/13/17 Range/Units 04:20 Calcium 8.0 L (8.4-10.2) mg/dL Phosphorus 3.10 (2.5-4.5) mg/dL Pituitary panel 07/13/17 Range/Units 04:20 Sodium 137 (137-145) mmol/L Potassium 4.1 (3.6-5.0) mmol/L Chloride 101.2 (98-107) mmol/L Carbon Dioxide 27 (22-30) mmol/L BUN 19 (9-20) mg/dL Creatinine 0.6 L (0.8-1.5) mg/dL Glucose 110 H (75-100) mg/dL Calcium 8.0 L (8.4-10.2) mg/dL Adrenal panel 07/13/17 Range/Units 04:20 Sodium 137 (137-145) mmol/L Potassium 4.1 (3.6-5.0) mmol/L Chloride 101.2 (98-107) mmol/L Carbon Dioxide 27 (22-30) mmol/L BUN 19 (9-20) mg/dL Creatinine 0.6 L (0.8-1.5) mg/dL Glucose 110 H (75-100) mg/dL Calcium 8.0 L (8.4-10.2) mg/dL
[2017-07-13] MEDS ORDERED: TPN ADULT 2,400 ML IV SCH (20:00)
--- NOTE | 2017-07-14 00:30 | XRay Report ---
FINAL REPORT PROCEDURE: XR ABDOMEN 1V AP TECHNIQUE: Abdominal radiograph, single upright AP view. HISTORY: sepsis/post OP (PLEASE DO NOT READ THE SUPINE IMAGE. DONE IN ERROR. WANTED UPRIGHT VIEW ONLY/DMD) COMPARISON: No prior studies are available for comparison. FINDINGS: Bowel gas pattern:There are few loops of slightly dilated gas-filled small bowel in the mid abdomen most consistent with an ileus.. Masses or calcifications:Multiple skin glo identified in the mid and lower abdomen.. Bony structures:No significant abnormality. Other:There is no evidence of free intraperitoneal air on this study.. IMPRESSION: Mild postoperative ileus is suspected. Postoperative changes with multiple skin glo identified over abdomen.
[2017-07-14] MEDS: MORPHINE IV PRN ×3 (04:13→23:24)
[2017-07-14] MEDS: MERREM 1,000 MG in NACL 0.9% 100 ML IV SCH ×3 (05:53→22:21)
[2017-07-14 06:21] LABS: BUN/Creatinine Ratio 32; Blood Urea Nitrogen 19 mg/dL (9-20); Hemolysis Index 15
[2017-07-14] MEDS: HABITROL TD SCH (10:54)
[2017-07-14] MEDS: HEPARIN SUB-Q SCH ×2 (10:54→22:22)
[2017-07-14] MEDS: PEPCID IV SCH ×2 (10:54→22:22)
[2017-07-14] MEDS: SODIUM CHLORIDE FLUSH SYRINGE 10 ML IV SCH ×2 (11:00→22:23)
--- NOTE | 2017-07-14 11:02 | XRay Report ---
Single view chest: Compared to 07/08/17. History: Right PICC line placement. Findings: Normal cardiomediastinal silhouette the trachea is midline. No consolidation, pneumothorax or pleural effusion. Tip of right PICC line in MID superior vena cava. Impression: Tip of right PICC line in mid superior vena cava.
--- NOTE | 2017-07-14 13:15 | Progress Note ---
Assessment and Plan Assessment and plan: Pelvic abscess and wound dehiscence s/p recent surgery on last admission(06/30) Patient placed on IV broad-spectrum antibiotics Will follow up blood culture/ wound cx results Dr. Lopez following plan for conservative Mx for now fistulogram obtained and showed sinus tract draining intra-abdominal collection Patient also placed on TPN Severe sepsis secondary to the pelvic abscess and bacteremia patient placed on sepsis protocol wound Culture growing Escherichia coli and MDR Enterobacter, blood cx positive for E. coli ID on board, Continue meropenem and levaquin Hypotension secondary to sepsis, Now resolved Patient's blood pressure responded to IV hydration He will be continued on maintenance IV fluid with blood pressure monitoring. Recurrent right inguinal hernia The surgeon has been consulted. Conservative management for now Transaminitis likely secondary to sepsis Will continue to monitor his liver function test levels Acute kidney injury from severe sepsis Patient will be placed on IV fluid, will monitor his creatinine level Cr now normal Acute anemia WIll monitor his H/H and transfuse as needed. Prophylaxis DVT prophylaxis with SCD and GI prophylaxis with Protonix Full code status History Interval history: Asking about eating food, Mild abdominal pain Hospitalist Physical - Physical exam Narrative exam: General:Not in acute distress, lying in bed, HEENT:Normocephalic, atraumatic Neck:supple,no JVD Lungs: Clear to auscultation, no rales, no wheeze Heart:S1 and S2 regular, no murmurs, rubs or gallop Abd: soft, dressing over abdominal wound, drainage, norml bowel sounds Ext:no edema, no clubbing or cyanosis Neuro:Awake,alert,oriented x 3, moves all extremities, Psych:normal mood - Constitutional Vitals: Temp Pulse Resp BP Pulse Ox 98.7 F 51 L 20 112/55 93 07/14/17 12:00 07/14/17 12:00 07/14/17 12:00 07/14/17 12:00 07/14/17 12:00 General appearance: Present: no acute distress, other (ill looking) Results - Labs CBC & Chem 7: 07/12/17 12:44 07/16/17 05:45 Labs: Laboratory Last Values WBC 13.7 K/mm3 (4.5-11.0) H 07/12/17 12:44 RBC 2.91 M/mm3 (3.65-5.03) L 07/12/17 12:44 Hgb 8.9 gm/dl (11.8-15.2) L 07/12/17 12:44 Hct 27.8 % (35.5-45.6) L 07/12/17 12:44 MCV 96 fl (84-94) H 07/12/17 12:44 MCH 31 pg (28-32) 07/12/17 12:44 MCHC 32 % (32-34) 07/12/17 12:44 RDW 14.9 % (13.2-15.2) 07/12/17 12:44 Plt Count 397 K/mm3 (140-440) 07/12/17 12:44 Lymph % (Auto) 6.2 % (13.4-35.0) L 07/11/17 05:41 [place] % (Auto) 6.3 % (0.0-7.3) 07/11/17 05:41 Eos % (Auto) 0.6 % (0.0-4.3) 07/11/17 05:41 Baso % (Auto) 0.1 % (0.0-1.8) 07/11/17 05:41 Lymph # 1.0 K/mm3 (1.2-5.4) L 07/11/17 05:41 [place] # 1.0 K/mm3 (0.0-0.8) H 07/11/17 05:41 Eos # 0.1 K/mm3 (0.0-0.4) 07/11/17 05:41 Baso # 0.0 K/mm3 (0.0-0.1) 07/11/17 05:41 Add Manual Diff Complete 07/10/17 04:16 Total Counted 100 07/10/17 04:16 Seg Neutrophils % 86.8 % (40.0-70.0) H 07/11/17 05:41 Seg Neuts % (Manual) 93.0 % (40.0-70.0) H 07/10/17 04:16 Band Neutrophils % 1.0 % 07/10/17 04:16 Lymphocytes % (Manual) 3.0 % (13.4-35.0) L 07/10/17 04:16 Reactive Lymphs % (Man) 0 % 07/10/17 04:16 Monocytes % (Manual) 3.0 % (0.0-7.3) 07/10/17 04:16 Eosinophils % (Manual) 0 % (0.0-4.3) 07/10/17 04:16 Basophils % (Manual) 0 % (0.0-1.8) 07/10/17 04:16 Metamyelocytes % 0 % 07/10/17 04:16 Myelocytes % 0 % 07/10/17 04:16 Promyelocytes % 0 % 07/10/17 04:16 Blast Cells % 0 % 07/10/17 04:16 Nucleated RBC % Not Reportable 07/10/17 04:16 Seg Neutrophils # 14.1 K/mm3 (1.8-7.7) H 07/11/17 05:41 Seg Neutrophils # Man 24.9 K/mm3 (1.8-7.7) H 07/10/17 04:16 Band Neutrophils # 0.3 K/mm3 07/10/17 04:16 Lymphocytes # (Manual) 0.8 K/mm3 (1.2-5.4) L 07/10/17 04:16 Abs React Lymphs (Man) 0.0 K/mm3 07/10/17 04:16 Monocytes # (Manual) 0.8 K/mm3 (0.0-0.8) 07/10/17 04:16 Eosinophils # (Manual) 0.0 K/mm3 (0.0-0.4) 07/10/17 04:16 Basophils # (Manual) 0.0 K/mm3 (0.0-0.1) 07/10/17 04:16 Metamyelocytes # 0.0 K/mm3 07/10/17 04:16 Myelocytes # 0.0 K/mm3 07/10/17 04:16 Promyelocytes # 0.0 K/mm3 07/10/17 04:16 Blast Cells # 0.0 K/mm3 07/10/17 04:16 WBC Morphology Not Reportable 07/10/17 04:16 Hypersegmented Neuts Not Reportable 07/10/17 04:16 Hyposegmented Neuts Not Reportable 07/10/17 04:16 Hypogranular Neuts Not Reportable 07/10/17 04:16 Smudge Cells Not Reportable 07/10/17 04:16 Toxic Granulation Not Reportable 07/10/17 04:16 Toxic Vacuolation Not Reportable 07/10/17 04:16 Dohle Bodies Not Reportable 07/10/17 04:16 Pelger-Huet Anomaly Not Reportable 07/10/17 04:16 Winter Rods Not Reportable 07/10/17 04:16 Platelet Estimate Appears normal 07/10/17 04:16 Clumped Platelets Not Reportable 07/10/17 04:16 Plt Clumps, EDTA Not Reportable 07/10/17 04:16 Large Platelets Not Reportable 07/10/17 04:16 Giant Platelets Not Reportable 07/10/17 04:16 Platelet Satelliting Not Reportable 07/10/17 04:16 Plt Morphology Comment Not Reportable 07/10/17 04:16 RBC Morphology Not Reportable 07/10/17 04:16 Dimorphic RBCs Not Reportable 07/10/17 04:16 Polychromasia Not Reportable 07/10/17 04:16 Hypochromasia 1+ 07/10/17 04:16 Poikilocytosis Not Reportable 07/10/17 04:16 Anisocytosis 1+ 07/10/17 04:16 Microcytosis Not Reportable 07/10/17 04:16 Macrocytosis Not Reportable 07/10/17 04:16 Spherocytes Not Reportable 07/10/17 04:16 Pappenheimer Bodies Not Reportable 07/10/17 04:16 Sickle Cells Not Reportable 07/10/17 04:16 Target Cells Not Reportable 07/10/17 04:16 Tear Drop Cells Not Reportable 07/10/17 04:16 Ovalocytes 1+ 07/10/17 04:16 Helmet Cells Not Reportable 07/10/17 04:16 [place] Bodies Not Reportable 07/10/17 04:16 [place] Rings Not Reportable 07/10/17 04:16 [place] Cells Not Reportable 07/10/17 04:16 Bite Cells Not Reportable 07/10/17 04:16 Crenated Cell Not Reportable 07/10/17 04:16 Elliptocytes Not Reportable 07/10/17 04:16 Acanthocytes (Spur) Not Reportable 07/10/17 04:16 Rouleaux Not Reportable 07/10/17 04:16 Hemoglobin C Crystals Not Reportable 07/10/17 04:16 Schistocytes Not Reportable 07/10/17 04:16 Malaria parasites Not Reportable 07/10/17 04:16 Erasmo Bodies Not Reportable 07/10/17 04:16 Hem Pathologist Commnt No 07/10/17 04:16 PT 16.9 Sec. (12.2-14.9) H 07/08/17 18:05 INR 1.30 (0.87-1.13) H 07/08/17 18:05 VBG pH 7.443 (7.320-7.420) H 07/08/17 18:05 Sodium 136 mmol/L (137-145) L 07/14/17 05:43 Potassium 4.6 mmol/L (3.6-5.0) 07/14/17 05:43 Chloride 100.2 mmol/L (98-107) 07/14/17 05:43 Carbon Dioxide 26 mmol/L (22-30) 07/14/17 05:43 Anion Gap 14 mmol/L 07/14/17 05:43 BUN 19 mg/dL (9-20) 07/14/17 05:43 Creatinine 0.6 mg/dL (0.8-1.5) L 07/14/17 05:43 Estimated GFR > 60 ml/min 07/14/17 05:43 BUN/Creatinine Ratio 32 % 07/14/17 05:43 Glucose 126 mg/dL (75-100) H 07/14/17 05:43 POC Glucose 124 (70-105) H 07/14/17 11:14 Lactic Acid 1.10 mmol/L (0.7-2.0) 07/09/17 08:06 Calcium 8.0 mg/dL (8.4-10.2) L 07/14/17 05:43 Phosphorus 3.10 mg/dL (2.5-4.5) 07/14/17 05:43 Magnesium 2.00 mg/dL (1.7-2.3) 07/14/17 05:43 Total Bilirubin 0.50 mg/dL (0.1-1.2) 07/09/17 06:57 AST 37 units/L (5-40) 07/09/17 06:57 ALT 28 units/L (7-56) 07/09/17 06:57 Alkaline Phosphatase 83 units/L (35-129) 07/09/17 06:57 C-Reactive Protein 19.80 mg/dL (0.00-1.30) H 07/11/17 05:41 Total Protein 5.1 g/dL (6.3-8.2) L 07/09/17 06:57 Albumin 2.1 g/dL (3.9-5) L 07/09/17 06:57 Albumin/Globulin Ratio 0.7 % 07/09/17 06:57 Triglycerides 70 mg/dL (2-149) 07/14/17 05:43 Urine Color Yellow (Yellow) 07/08/17 16:30 Urine Turbidity Clear (Clear) 07/08/17 16:30 Urine pH 5.0 (5.0-7.0) 07/08/17 16:30 Ur Specific [place] 1.027 (1.003-1.030) 07/08/17 16:30 Urine Protein 30 mg/dl mg/dL (Negative) 07/08/17 16:30 Urine Glucose (UA) Neg mg/dL (Negative) 07/08/17 16:30 Urine Ketones Tr mg/dL (Negative) 07/08/17 16:30 Urine Blood Mod (Negative) 07/08/17 16:30 Urine Nitrite Neg (Negative) 07/08/17 16:30 Urine Bilirubin Neg (Negative) 07/08/17 16:30 Urine Urobilinogen < 2.0 mg/dL (<2.0) 07/08/17 16:30 Ur Leukocyte Esterase Tr (Negative) 07/08/17 16:30 Urine WBC (Auto) 8.0 /HPF (0.0-6.0) H 07/08/17 16:30 Urine RBC (Auto) 2.0 /HPF (0.0-6.0) 07/08/17 16:30 U Epithel Cells (Auto) < 1.0 /HPF (0-13.0) 07/08/17 16:30 Urine Mucus Few /HPF 07/08/17 16:30 Urine Yeast (Budding) 1+ /HPF 07/08/17 16:30 Blood Type O POSITIVE 07/08/17 23:29 Antibody Screen Negative 07/08/17 23:29
--- NOTE | 2017-07-14 13:35 | Progress Note ---
Subjective Patient Reports: Positive: feels better, pain is less Narrative: Doing OK , still drainage will check with a fistulogram , abd soft benign Objective Vital Signs - 12hr 07/14/17 07/14/17 07/14/17 04:54 04:55 07:10 Temperature 98.5 F 98.0 F Pulse Rate 81 84 Respiratory 20 Rate Blood Pressure 110/57 Blood Pressure [Right] O2 Sat by Pulse 98 99 Oximetry 07/14/17 07/14/17 07:13 12:00 Temperature 98.7 F Pulse Rate 83 51 L Respiratory 20 Rate Blood Pressure 105/51 Blood Pressure 112/55 [Right] O2 Sat by Pulse 98 93 Oximetry - Labs 07/12/17 12:44 07/14/17 05:43 Diabetes panel 07/14/17 Range/Units 05:43 Sodium 136 L (137-145) mmol/L Potassium 4.6 (3.6-5.0) mmol/L Chloride 100.2 (98-107) mmol/L Carbon Dioxide 26 (22-30) mmol/L BUN 19 (9-20) mg/dL Creatinine 0.6 L (0.8-1.5) mg/dL Glucose 126 H (75-100) mg/dL Calcium 8.0 L (8.4-10.2) mg/dL Triglycerides 70 (2-149) mg/dL Calcium panel 07/14/17 Range/Units 05:43 Calcium 8.0 L (8.4-10.2) mg/dL Phosphorus 3.10 (2.5-4.5) mg/dL Pituitary panel 07/14/17 Range/Units 05:43 Sodium 136 L (137-145) mmol/L Potassium 4.6 (3.6-5.0) mmol/L Chloride 100.2 (98-107) mmol/L Carbon Dioxide 26 (22-30) mmol/L BUN 19 (9-20) mg/dL Creatinine 0.6 L (0.8-1.5) mg/dL Glucose 126 H (75-100) mg/dL Calcium 8.0 L (8.4-10.2) mg/dL Adrenal panel 07/14/17 Range/Units 05:43 Sodium 136 L (137-145) mmol/L Potassium 4.6 (3.6-5.0) mmol/L Chloride 100.2 (98-107) mmol/L Carbon Dioxide 26 (22-30) mmol/L BUN 19 (9-20) mg/dL Creatinine 0.6 L (0.8-1.5) mg/dL Glucose 126 H (75-100) mg/dL Calcium 8.0 L (8.4-10.2) mg/dL
[2017-07-14] MEDS ORDERED: INTRALIPID 20% 250 ML IV SCH (20:00)
[2017-07-14] MEDS ORDERED: TPN ADULT 2,400 ML IV SCH (20:00)
--- NOTE | 2017-07-14 20:52 | Progress Note ---
Assessment and Plan Assessment: 1) Severe sepsis: better. Etiology most likely surgical wound infection +/- intra-abdominal abscess +/- E coli bacteremia. 2) E coli bacteremia: from surgical site infection -Blood cx 5/3 E coli -Repeat blood cx no growth so far -CRP=19 3) Surgical wound infection ?dehiscence ? leak with intra-abdominal abscess vs. collection -Wound cx 5/3 E coli and MDR Enterobacter -Ct abd showed continued or recurrent large right inguinal canal hernia extending into scrotum and possible large pelvic abscess. -Fistulogram showed positive sinus tract communicating with blind end presumedly a collection. 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 Johana Mcqueen MD Infectious Diseases Specialist [facility] ([facility]) M [phone] O [phone] Subjective Date of service: 07/14/17 Principal diagnosis: Severe Sepsis; Intra-Abdominal Abscess; Gram negative bacteremia Interval history: Feels ok still leakage but now contained. No fever. Microbiology: Blood cultures: 07/08 E coli 5/6 ngtd Urine cultures: 07/08 <10K Respiratory cultures: Wound cultures: /3 E coli and MDR Enterobacter Stool cultures: Other: Current Antimicrobials: meropenem 07/12 Previous Antimicrobials: Flagyl 5/ Vancomycin / Cefepime / Objective - Exam Narrative Exam: General appearance: Alert in NAD, conversant Eyes: anicteric sclerae, moist conjunctivae; no lid-lag; PERRLA HENT: Atraumatic; oropharynx clear poor dentition Neck: Trachea midline; supple, no thyromegaly or lymphadenopathy Lungs: CTA, with normal respiratory effort and no intercostal retractions CV: RRR, no murmurs Abdomen: Soft, +midline wound +right groin wound covered with dressings Extremities: No peripheral edema or extremity lymphadenopathy Skin: Normal temperature, turgor and texture; no rash, ulcers or subcutaneous nodules Psych: Appropriate affect, alert and oriented to person, place and time. Neuro: alert and oriented x 3. Moving all extermities Lines: No CVL / PICC - Constitutional Vitals: Vital Signs Temp Pulse Resp BP Pulse Ox 98.8 F 89 20 172/71 99 07/14/17 20:06 07/14/17 20:06 07/14/17 20:06 07/14/17 20:06 07/14/17 20:06 Temperature -Last 24 Hours Temperature 98.8 F Temperature 98.2 F Temperature 98.7 F Temperature 98.0 F Temperature 98.5 F Temperature 98.1 F - Labs CBC & Chem 7: 07/12/17 12:44 07/14/17 05:43 Labs: Abnormal lab results 07/14/17 07/14/17 Range/Units 05:43 11:14 Sodium 136 L (137-145) mmol/L Creatinine 0.6 L (0.8-1.5) mg/dL Glucose 126 H (75-100) mg/dL POC Glucose 124 H (70-105) Calcium 8.0 L (8.4-10.2) mg/dL
[2017-07-15] MEDS: MORPHINE IV PRN ×4 (04:15→21:53)
[2017-07-15 05:49] LABS: BUN/Creatinine Ratio 26; Blood Urea Nitrogen 18 mg/dL (9-20); Hemolysis Index 1
[2017-07-15] MEDS: MERREM 1,000 MG in NACL 0.9% 100 ML IV SCH ×2 (06:00→15:31)
[2017-07-15] MEDS: PEPCID IV SCH ×2 (10:56→21:54)
[2017-07-15] MEDS: HABITROL TD SCH (10:57)
[2017-07-15] MEDS: HEPARIN SUB-Q SCH ×2 (10:59→21:54)
--- NOTE | 2017-07-15 14:41 | Progress Note ---
Subjective Patient Reports: Positive: feels better, flatus, bowel movement Narrative: Doing OK , will repeat fitulogram to see extension and location Objective Vital Signs - 12hr 07/15/17 07/15/17 07/15/17 04:15 04:49 07:33 Temperature 98.7 F 98.4 F Pulse Rate 80 Respiratory 18 17 18 Rate Blood Pressure 101/58 105/52 Blood Pressure [Right] O2 Sat by Pulse 97 Oximetry 07/15/17 07/15/17 12:00 13:26 Temperature 98.4 F Pulse Rate 88 84 Respiratory 18 Rate Blood Pressure Blood Pressure 105/52 [Right] O2 Sat by Pulse 98 Oximetry - Labs 07/12/17 12:44 07/15/17 04:35 Diabetes panel 07/15/17 Range/Units 04:35 Sodium 136 L (137-145) mmol/L Potassium 4.2 (3.6-5.0) mmol/L Chloride 100.1 (98-107) mmol/L Carbon Dioxide 27 (22-30) mmol/L BUN 18 (9-20) mg/dL Creatinine 0.7 L (0.8-1.5) mg/dL Glucose 107 H (75-100) mg/dL Calcium 8.0 L (8.4-10.2) mg/dL Calcium panel 07/15/17 Range/Units 04:35 Calcium 8.0 L (8.4-10.2) mg/dL Pituitary panel 07/15/17 Range/Units 04:35 Sodium 136 L (137-145) mmol/L Potassium 4.2 (3.6-5.0) mmol/L Chloride 100.1 (98-107) mmol/L Carbon Dioxide 27 (22-30) mmol/L BUN 18 (9-20) mg/dL Creatinine 0.7 L (0.8-1.5) mg/dL Glucose 107 H (75-100) mg/dL Calcium 8.0 L (8.4-10.2) mg/dL Adrenal panel 07/15/17 Range/Units 04:35 Sodium 136 L (137-145) mmol/L Potassium 4.2 (3.6-5.0) mmol/L Chloride 100.1 (98-107) mmol/L Carbon Dioxide 27 (22-30) mmol/L BUN 18 (9-20) mg/dL Creatinine 0.7 L (0.8-1.5) mg/dL Glucose 107 H (75-100) mg/dL Calcium 8.0 L (8.4-10.2) mg/dL
--- NOTE | 2017-07-15 15:58 | Progress Note ---
Assessment and Plan Assessment and plan: Pelvic abscess and wound dehiscence s/p recent surgery on last admission(06/30) Patient placed on IV broad-spectrum antibiotics Will follow up blood culture/ wound cx results Dr. Lopez following Conservative Mx for now fistulogram obtained and showed sinus tract draining intra-abdominal collection Patient also placed on TPN Severe sepsis secondary to the pelvic abscess and bacteremia patient placed on sepsis protocol wound Culture growing Escherichia coli and MDR Enterobacter, blood cx positive for E. coli ID on board, Continue meropenem and levaquin Hypotension secondary to sepsis Patient's blood pressure responded to IV hydration He will be continued on maintenance IV fluid with blood pressure monitoring. Recurrent right inguinal hernia The surgeon has been consulted. Conservative management for now Transaminitis likely secondary to sepsis, Now resolved Will continue to monitor his liver function test levels Acute kidney injury from severe sepsis Patient will be placed on IV fluid, will monitor his creatinine level Cr now normal Acute anemia WIll monitor his H/H and transfuse as needed. Prophylaxis DVT prophylaxis with SCD GI prophylaxis with Protonix Full code status History Interval history: Asking about eating food, No abdominal pain, no fever Hospitalist Physical - Physical exam Narrative exam: General:Not in acute distress, lying in bed, HEENT:Normocephalic, atraumatic Neck:supple,no JVD Lungs: Clear to auscultation, no rales, no wheeze Heart:S1 and S2 regular, no murmurs, rubs or gallop Abd: soft, dressing over abdominal wound, drainage, normal bowel sounds Ext:no edema, no clubbing or cyanosis Neuro:Awake,alert,oriented x 3, moves all extremities, Psych:normal mood - Constitutional Vitals: Temp Pulse Resp BP Pulse Ox 98.4 F 84 18 105/52 98 07/15/17 12:00 07/15/17 13:26 07/15/17 12:00 07/15/17 12:00 07/15/17 13:26 General appearance: Present: no acute distress, other (ill looking) Results - Labs CBC & Chem 7: 07/12/17 12:44 07/16/17 05:45 Labs: Laboratory Last Values WBC 13.7 K/mm3 (4.5-11.0) H 07/12/17 12:44 RBC 2.91 M/mm3 (3.65-5.03) L 07/12/17 12:44 Hgb 8.9 gm/dl (11.8-15.2) L 07/12/17 12:44 Hct 27.8 % (35.5-45.6) L 07/12/17 12:44 MCV 96 fl (84-94) H 07/12/17 12:44 MCH 31 pg (28-32) 07/12/17 12:44 MCHC 32 % (32-34) 07/12/17 12:44 RDW 14.9 % (13.2-15.2) 07/12/17 12:44 Plt Count 397 K/mm3 (140-440) 07/12/17 12:44 Lymph % (Auto) 6.2 % (13.4-35.0) L 07/11/17 05:41 [place] % (Auto) 6.3 % (0.0-7.3) 07/11/17 05:41 Eos % (Auto) 0.6 % (0.0-4.3) 07/11/17 05:41 Baso % (Auto) 0.1 % (0.0-1.8) 07/11/17 05:41 Lymph # 1.0 K/mm3 (1.2-5.4) L 07/11/17 05:41 [place] # 1.0 K/mm3 (0.0-0.8) H 07/11/17 05:41 Eos # 0.1 K/mm3 (0.0-0.4) 07/11/17 05:41 Baso # 0.0 K/mm3 (0.0-0.1) 07/11/17 05:41 Add Manual Diff Complete 07/10/17 04:16 Total Counted 100 07/10/17 04:16 Seg Neutrophils % 86.8 % (40.0-70.0) H 07/11/17 05:41 Seg Neuts % (Manual) 93.0 % (40.0-70.0) H 07/10/17 04:16 Band Neutrophils % 1.0 % 07/10/17 04:16 Lymphocytes % (Manual) 3.0 % (13.4-35.0) L 07/10/17 04:16 Reactive Lymphs % (Man) 0 % 07/10/17 04:16 Monocytes % (Manual) 3.0 % (0.0-7.3) 07/10/17 04:16 Eosinophils % (Manual) 0 % (0.0-4.3) 07/10/17 04:16 Basophils % (Manual) 0 % (0.0-1.8) 07/10/17 04:16 Metamyelocytes % 0 % 07/10/17 04:16 Myelocytes % 0 % 07/10/17 04:16 Promyelocytes % 0 % 07/10/17 04:16 Blast Cells % 0 % 07/10/17 04:16 Nucleated RBC % Not Reportable 07/10/17 04:16 Seg Neutrophils # 14.1 K/mm3 (1.8-7.7) H 07/11/17 05:41 Seg Neutrophils # Man 24.9 K/mm3 (1.8-7.7) H 07/10/17 04:16 Band Neutrophils # 0.3 K/mm3 07/10/17 04:16 Lymphocytes # (Manual) 0.8 K/mm3 (1.2-5.4) L 07/10/17 04:16 Abs React Lymphs (Man) 0.0 K/mm3 07/10/17 04:16 Monocytes # (Manual) 0.8 K/mm3 (0.0-0.8) 07/10/17 04:16 Eosinophils # (Manual) 0.0 K/mm3 (0.0-0.4) 07/10/17 04:16 Basophils # (Manual) 0.0 K/mm3 (0.0-0.1) 07/10/17 04:16 Metamyelocytes # 0.0 K/mm3 07/10/17 04:16 Myelocytes # 0.0 K/mm3 07/10/17 04:16 Promyelocytes # 0.0 K/mm3 07/10/17 04:16 Blast Cells # 0.0 K/mm3 07/10/17 04:16 WBC Morphology Not Reportable 07/10/17 04:16 Hypersegmented Neuts Not Reportable 07/10/17 04:16 Hyposegmented Neuts Not Reportable 07/10/17 04:16 Hypogranular Neuts Not Reportable 07/10/17 04:16 Smudge Cells Not Reportable 07/10/17 04:16 Toxic Granulation Not Reportable 07/10/17 04:16 Toxic Vacuolation Not Reportable 07/10/17 04:16 Dohle Bodies Not Reportable 07/10/17 04:16 Pelger-Huet Anomaly Not Reportable 07/10/17 04:16 Winter Rods Not Reportable 07/10/17 04:16 Platelet Estimate Appears normal 07/10/17 04:16 Clumped Platelets Not Reportable 07/10/17 04:16 Plt Clumps, EDTA Not Reportable 07/10/17 04:16 Large Platelets Not Reportable 07/10/17 04:16 Giant Platelets Not Reportable 07/10/17 04:16 Platelet Satelliting Not Reportable 07/10/17 04:16 Plt Morphology Comment Not Reportable 07/10/17 04:16 RBC Morphology Not Reportable 07/10/17 04:16 Dimorphic RBCs Not Reportable 07/10/17 04:16 Polychromasia Not Reportable 07/10/17 04:16 Hypochromasia 1+ 07/10/17 04:16 Poikilocytosis Not Reportable 07/10/17 04:16 Anisocytosis 1+ 07/10/17 04:16 Microcytosis Not Reportable 07/10/17 04:16 Macrocytosis Not Reportable 07/10/17 04:16 Spherocytes Not Reportable 07/10/17 04:16 Pappenheimer Bodies Not Reportable 07/10/17 04:16 Sickle Cells Not Reportable 07/10/17 04:16 Target Cells Not Reportable 07/10/17 04:16 Tear Drop Cells Not Reportable 07/10/17 04:16 Ovalocytes 1+ 07/10/17 04:16 Helmet Cells Not Reportable 07/10/17 04:16 [place] Bodies Not Reportable 07/10/17 04:16 [place] Rings Not Reportable 07/10/17 04:16 [place] Cells Not Reportable 07/10/17 04:16 Bite Cells Not Reportable 07/10/17 04:16 Crenated Cell Not Reportable 07/10/17 04:16 Elliptocytes Not Reportable 07/10/17 04:16 Acanthocytes (Spur) Not Reportable 07/10/17 04:16 Rouleaux Not Reportable 07/10/17 04:16 Hemoglobin C Crystals Not Reportable 07/10/17 04:16 Schistocytes Not Reportable 07/10/17 04:16 Malaria parasites Not Reportable 07/10/17 04:16 Erasmo Bodies Not Reportable 07/10/17 04:16 Hem Pathologist Commnt No 07/10/17 04:16 PT 16.9 Sec. (12.2-14.9) H 07/08/17 18:05 INR 1.30 (0.87-1.13) H 07/08/17 18:05 VBG pH 7.443 (7.320-7.420) H 07/08/17 18:05 Sodium 136 mmol/L (137-145) L 07/15/17 04:35 Potassium 4.2 mmol/L (3.6-5.0) 07/15/17 04:35 Chloride 100.1 mmol/L (98-107) 07/15/17 04:35 Carbon Dioxide 27 mmol/L (22-30) 07/15/17 04:35 Anion Gap 13 mmol/L 07/15/17 04:35 BUN 18 mg/dL (9-20) 07/15/17 04:35 Creatinine 0.7 mg/dL (0.8-1.5) L 07/15/17 04:35 Estimated GFR > 60 ml/min 07/15/17 04:35 BUN/Creatinine Ratio 26 % 07/15/17 04:35 Glucose 107 mg/dL (75-100) H 07/15/17 04:35 POC Glucose 129 (70-105) H 07/15/17 13:31 Lactic Acid 1.10 mmol/L (0.7-2.0) 07/09/17 08:06 Calcium 8.0 mg/dL (8.4-10.2) L 07/15/17 04:35 Phosphorus 3.10 mg/dL (2.5-4.5) 07/14/17 05:43 Magnesium 2.00 mg/dL (1.7-2.3) 07/14/17 05:43 Total Bilirubin 0.50 mg/dL (0.1-1.2) 07/09/17 06:57 AST 37 units/L (5-40) 07/09/17 06:57 ALT 28 units/L (7-56) 07/09/17 06:57 Alkaline Phosphatase 83 units/L (35-129) 07/09/17 06:57 C-Reactive Protein 19.80 mg/dL (0.00-1.30) H 07/11/17 05:41 Total Protein 5.1 g/dL (6.3-8.2) L 07/09/17 06:57 Albumin 2.1 g/dL (3.9-5) L 07/09/17 06:57 Albumin/Globulin Ratio 0.7 % 07/09/17 06:57 Triglycerides 70 mg/dL (2-149) 07/14/17 05:43 Urine Color Yellow (Yellow) 07/08/17 16:30 Urine Turbidity Clear (Clear) 07/08/17 16:30 Urine pH 5.0 (5.0-7.0) 07/08/17 16:30 Ur Specific [place] 1.027 (1.003-1.030) 07/08/17 16:30 Urine Protein 30 mg/dl mg/dL (Negative) 07/08/17 16:30 Urine Glucose (UA) Neg mg/dL (Negative) 07/08/17 16:30 Urine Ketones Tr mg/dL (Negative) 07/08/17 16:30 Urine Blood Mod (Negative) 07/08/17 16:30 Urine Nitrite Neg (Negative) 07/08/17 16:30 Urine Bilirubin Neg (Negative) 07/08/17 16:30 Urine Urobilinogen < 2.0 mg/dL (<2.0) 07/08/17 16:30 Ur Leukocyte Esterase Tr (Negative) 07/08/17 16:30 Urine WBC (Auto) 8.0 /HPF (0.0-6.0) H 07/08/17 16:30 Urine RBC (Auto) 2.0 /HPF (0.0-6.0) 07/08/17 16:30 U Epithel Cells (Auto) < 1.0 /HPF (0-13.0) 07/08/17 16:30 Urine Mucus Few /HPF 07/08/17 16:30 Urine Yeast (Budding) 1+ /HPF 07/08/17 16:30 Blood Type O POSITIVE 07/08/17 23:29 Antibody Screen Negative 07/08/17 23:29
[2017-07-15] MEDS ORDERED: TPN ADULT 2,400 ML IV SCH (20:00)
[2017-07-16] MEDS: MERREM 1,000 MG in NACL 0.9% 100 ML IV SCH ×4 (00:20→22:34)
[2017-07-16] MEDS: SODIUM CHLORIDE FLUSH SYRINGE 10 ML IV SCH ×3 (00:22→10:05)
[2017-07-16] MEDS: MORPHINE IV PRN ×3 (04:06→14:54)
[2017-07-16 06:43] LABS: BUN/Creatinine Ratio 33; Blood Urea Nitrogen 20 mg/dL (9-20); Calcium 8.1 mg/dL (8.4-10.2); Hemolysis Index 0
[2017-07-16] MEDS: HABITROL TD SCH (09:59)
[2017-07-16] MEDS: PEPCID IV SCH ×2 (09:59→23:38)
[2017-07-16] MEDS: HEPARIN SUB-Q SCH ×2 (09:59→22:13)
--- NOTE | 2017-07-16 10:53 | Progress Note ---
Assessment and Plan Assessment: 1) Severe sepsis: better. Etiology most likely surgical wound infection +/- intra-abdominal abscess +/- E coli bacteremia. 2) E coli bacteremia: from surgical site infection -Blood cx 5/3 E coli -Repeat blood cx no growth so far -CRP=19 3) Surgical wound infection ?dehiscence ? leak with intra-abdominal abscess vs. collection -Wound cx 5/3 E coli and MDR Enterobacter -Ct abd showed continued or recurrent large right inguinal canal hernia extending into scrotum and possible large pelvic abscess. -Fistulogram showed positive sinus tract communicating with blind end presumedly a collection. 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 Johana Mcqueen MD Infectious Diseases Specialist [facility] ([facility]) M [phone] O [phone] Subjective Date of service: 07/16/17 Principal diagnosis: Severe Sepsis; Intra-Abdominal Abscess; Gram negative bacteremia Interval history: Feels ok still leakage but now contained. No fever. Microbiology: Blood cultures: /3 E coli 5/6 ngtd Urine cultures: /3 <10K Respiratory cultures: Wound cultures: 5/3 E coli and MDR Enterobacter Stool cultures: Other: Current Antimicrobials: meropenem 5 Previous Antimicrobials: Flagyl 5/ Vancomycin / Cefepime / Objective - Exam Narrative Exam: General appearance: Alert in NAD, conversant Eyes: anicteric sclerae, moist conjunctivae; no lid-lag; PERRLA HENT: Atraumatic; oropharynx clear poor dentition Neck: Trachea midline; supple, no thyromegaly or lymphadenopathy Lungs: CTA, with normal respiratory effort and no intercostal retractions CV: RRR, no murmurs Abdomen: Soft, +midline wound +right groin wound covered with dressings still copious green leakage Extremities: No peripheral edema or extremity lymphadenopathy Skin: Normal temperature, turgor and texture; no rash, ulcers or subcutaneous nodules Psych: Appropriate affect, alert and oriented to person, place and time. Neuro: alert and oriented x 3. Moving all extermities Lines: No CVL / PICC - Constitutional Vitals: Vital Signs Temp Pulse Resp BP Pulse Ox 99.0 F 77 18 103/60 98 07/16/17 08:10 07/16/17 08:10 07/16/17 08:10 07/16/17 08:10 07/16/17 08:10 Temperature -Last 24 Hours Temperature 99.0 F Temperature 99.0 F Temperature 98.9 F Temperature 98.6 F Temperature 98.6 F Temperature 98.4 F - Labs CBC & Chem 7: 07/12/17 12:44 07/16/17 05:45 Labs: Abnormal lab results 07/15/17 07/15/17 07/15/17 Range/Units 13:31 19:12 23:30 Creatinine (0.8-1.5) mg/dL POC Glucose 129 H 119 H 116 H (70-105) Calcium (8.4-10.2) mg/dL 07/16/17 Range/Units 05:45 Creatinine 0.6 L (0.8-1.5) mg/dL POC Glucose (70-105) Calcium 8.1 L (8.4-10.2) mg/dL
--- NOTE | 2017-07-16 11:36 | Progress Note ---
Assessment and Plan Assessment and plan: Pelvic abscess and wound dehiscence s/p recent surgery on last admission(06/30) Continue Merrem and vancomycin Dr. Lopez following Conservative Mx for now fistulogram obtained and showed sinus tract draining intra-abdominal collection Patient also placed on TPN Severe sepsis secondary to the pelvic abscess and bacteremia patient placed on sepsis protocol wound Culture growing Escherichia coli and MDR Enterobacter, blood cx positive for E. coli ID on board, Continue meropenem and levaquin Hypotension secondary to sepsis Patient's blood pressure responded to IV hydration Continue iv fluids Recurrent right inguinal hernia The surgeon has been consulted. Conservative management for now Transaminitis likely secondary to sepsis, Now resolved Will continue to monitor his liver function test levels Acute kidney injury from severe sepsis Patient will be placed on IV fluid, will monitor his creatinine level Cr now normal Anemia WIll monitor his H/H and transfuse if hgb<7 Prophylaxis DVT prophylaxis with SCD GI prophylaxis with Protonix Full code status History Interval history: Asking about eating food, No abdominal pain, no fever Hospitalist Physical - Physical exam Narrative exam: General:Not in acute distress, lying in bed, HEENT:Normocephalic, atraumatic Neck:supple,no JVD Lungs: Clear to auscultation, no rales, no wheeze Heart:S1 and S2 regular, no murmurs, rubs or gallop Abd: soft, dressing over abdominal wound, drainage, normal bowel sounds Ext:no edema, no clubbing or cyanosis Neuro:Awake,alert,oriented x 3, moves all extremities, Psych:normal mood - Constitutional Vitals: Temp Pulse Resp BP Pulse Ox 99.0 F 77 18 103/60 98 07/16/17 08:10 07/16/17 08:10 07/16/17 08:10 07/16/17 08:10 07/16/17 08:10 General appearance: Present: no acute distress, other (ill looking) Results - Labs CBC & Chem 7: 07/12/17 12:44 07/16/17 05:45 Labs: Laboratory Last Values WBC 13.7 K/mm3 (4.5-11.0) H 07/12/17 12:44 RBC 2.91 M/mm3 (3.65-5.03) L 07/12/17 12:44 Hgb 8.9 gm/dl (11.8-15.2) L 07/12/17 12:44 Hct 27.8 % (35.5-45.6) L 07/12/17 12:44 MCV 96 fl (84-94) H 07/12/17 12:44 MCH 31 pg (28-32) 07/12/17 12:44 MCHC 32 % (32-34) 07/12/17 12:44 RDW 14.9 % (13.2-15.2) 07/12/17 12:44 Plt Count 397 K/mm3 (140-440) 07/12/17 12:44 Lymph % (Auto) 6.2 % (13.4-35.0) L 07/11/17 05:41 [place] % (Auto) 6.3 % (0.0-7.3) 07/11/17 05:41 Eos % (Auto) 0.6 % (0.0-4.3) 07/11/17 05:41 Baso % (Auto) 0.1 % (0.0-1.8) 07/11/17 05:41 Lymph # 1.0 K/mm3 (1.2-5.4) L 07/11/17 05:41 [place] # 1.0 K/mm3 (0.0-0.8) H 07/11/17 05:41 Eos # 0.1 K/mm3 (0.0-0.4) 07/11/17 05:41 Baso # 0.0 K/mm3 (0.0-0.1) 07/11/17 05:41 Add Manual Diff Complete 07/10/17 04:16 Total Counted 100 07/10/17 04:16 Seg Neutrophils % 86.8 % (40.0-70.0) H 07/11/17 05:41 Seg Neuts % (Manual) 93.0 % (40.0-70.0) H 07/10/17 04:16 Band Neutrophils % 1.0 % 07/10/17 04:16 Lymphocytes % (Manual) 3.0 % (13.4-35.0) L 07/10/17 04:16 Reactive Lymphs % (Man) 0 % 07/10/17 04:16 Monocytes % (Manual) 3.0 % (0.0-7.3) 07/10/17 04:16 Eosinophils % (Manual) 0 % (0.0-4.3) 07/10/17 04:16 Basophils % (Manual) 0 % (0.0-1.8) 07/10/17 04:16 Metamyelocytes % 0 % 07/10/17 04:16 Myelocytes % 0 % 07/10/17 04:16 Promyelocytes % 0 % 07/10/17 04:16 Blast Cells % 0 % 07/10/17 04:16 Nucleated RBC % Not Reportable 07/10/17 04:16 Seg Neutrophils # 14.1 K/mm3 (1.8-7.7) H 07/11/17 05:41 Seg Neutrophils # Man 24.9 K/mm3 (1.8-7.7) H 07/10/17 04:16 Band Neutrophils # 0.3 K/mm3 07/10/17 04:16 Lymphocytes # (Manual) 0.8 K/mm3 (1.2-5.4) L 07/10/17 04:16 Abs React Lymphs (Man) 0.0 K/mm3 07/10/17 04:16 Monocytes # (Manual) 0.8 K/mm3 (0.0-0.8) 07/10/17 04:16 Eosinophils # (Manual) 0.0 K/mm3 (0.0-0.4) 07/10/17 04:16 Basophils # (Manual) 0.0 K/mm3 (0.0-0.1) 07/10/17 04:16 Metamyelocytes # 0.0 K/mm3 07/10/17 04:16 Myelocytes # 0.0 K/mm3 07/10/17 04:16 Promyelocytes # 0.0 K/mm3 07/10/17 04:16 Blast Cells # 0.0 K/mm3 07/10/17 04:16 WBC Morphology Not Reportable 07/10/17 04:16 Hypersegmented Neuts Not Reportable 07/10/17 04:16 Hyposegmented Neuts Not Reportable 07/10/17 04:16 Hypogranular Neuts Not Reportable 07/10/17 04:16 Smudge Cells Not Reportable 07/10/17 04:16 Toxic Granulation Not Reportable 07/10/17 04:16 Toxic Vacuolation Not Reportable 07/10/17 04:16 Dohle Bodies Not Reportable 07/10/17 04:16 Pelger-Huet Anomaly Not Reportable 07/10/17 04:16 Winter Rods Not Reportable 07/10/17 04:16 Platelet Estimate Appears normal 07/10/17 04:16 Clumped Platelets Not Reportable 07/10/17 04:16 Plt Clumps, EDTA Not Reportable 07/10/17 04:16 Large Platelets Not Reportable 07/10/17 04:16 Giant Platelets Not Reportable 07/10/17 04:16 Platelet Satelliting Not Reportable 07/10/17 04:16 Plt Morphology Comment Not Reportable 07/10/17 04:16 RBC Morphology Not Reportable 07/10/17 04:16 Dimorphic RBCs Not Reportable 07/10/17 04:16 Polychromasia Not Reportable 07/10/17 04:16 Hypochromasia 1+ 07/10/17 04:16 Poikilocytosis Not Reportable 07/10/17 04:16 Anisocytosis 1+ 07/10/17 04:16 Microcytosis Not Reportable 07/10/17 04:16 Macrocytosis Not Reportable 07/10/17 04:16 Spherocytes Not Reportable 07/10/17 04:16 Pappenheimer Bodies Not Reportable 07/10/17 04:16 Sickle Cells Not Reportable 07/10/17 04:16 Target Cells Not Reportable 07/10/17 04:16 Tear Drop Cells Not Reportable 07/10/17 04:16 Ovalocytes 1+ 07/10/17 04:16 Helmet Cells Not Reportable 07/10/17 04:16 [place] Bodies Not Reportable 07/10/17 04:16 [place] Rings Not Reportable 07/10/17 04:16 [place] Cells Not Reportable 07/10/17 04:16 Bite Cells Not Reportable 07/10/17 04:16 Crenated Cell Not Reportable 07/10/17 04:16 Elliptocytes Not Reportable 07/10/17 04:16 Acanthocytes (Spur) Not Reportable 07/10/17 04:16 Rouleaux Not Reportable 07/10/17 04:16 Hemoglobin C Crystals Not Reportable 07/10/17 04:16 Schistocytes Not Reportable 07/10/17 04:16 Malaria parasites Not Reportable 07/10/17 04:16 Erasmo Bodies Not Reportable 07/10/17 04:16 Hem Pathologist Commnt No 07/10/17 04:16 PT 16.9 Sec. (12.2-14.9) H 07/08/17 18:05 INR 1.30 (0.87-1.13) H 07/08/17 18:05 VBG pH 7.443 (7.320-7.420) H 07/08/17 18:05 Sodium 138 mmol/L (137-145) 07/16/17 05:45 Potassium 4.5 mmol/L (3.6-5.0) 07/16/17 05:45 Chloride 100.9 mmol/L (98-107) 07/16/17 05:45 Carbon Dioxide 26 mmol/L (22-30) 07/16/17 05:45 Anion Gap 16 mmol/L 07/16/17 05:45 BUN 20 mg/dL (9-20) 07/16/17 05:45 Creatinine 0.6 mg/dL (0.8-1.5) L 07/16/17 05:45 Estimated GFR > 60 ml/min 07/16/17 05:45 BUN/Creatinine Ratio 33 % 07/16/17 05:45 Glucose 97 mg/dL (75-100) 07/16/17 05:45 POC Glucose 100 (70-105) 07/16/17 06:06 Lactic Acid 1.10 mmol/L (0.7-2.0) 07/09/17 08:06 Calcium 8.1 mg/dL (8.4-10.2) L 07/16/17 05:45 Phosphorus 2.90 mg/dL (2.5-4.5) 07/16/17 05:45 Magnesium 2.00 mg/dL (1.7-2.3) 07/16/17 05:45 Total Bilirubin 0.50 mg/dL (0.1-1.2) 07/09/17 06:57 AST 37 units/L (5-40) 07/09/17 06:57 ALT 28 units/L (7-56) 07/09/17 06:57 Alkaline Phosphatase 83 units/L (35-129) 07/09/17 06:57 C-Reactive Protein 19.80 mg/dL (0.00-1.30) H 07/11/17 05:41 Total Protein 5.1 g/dL (6.3-8.2) L 07/09/17 06:57 Albumin 2.1 g/dL (3.9-5) L 07/09/17 06:57 Albumin/Globulin Ratio 0.7 % 07/09/17 06:57 Triglycerides 70 mg/dL (2-149) 07/14/17 05:43 Urine Color Yellow (Yellow) 07/08/17 16:30 Urine Turbidity Clear (Clear) 07/08/17 16:30 Urine pH 5.0 (5.0-7.0) 07/08/17 16:30 Ur Specific [place] 1.027 (1.003-1.030) 07/08/17 16:30 Urine Protein 30 mg/dl mg/dL (Negative) 07/08/17 16:30 Urine Glucose (UA) Neg mg/dL (Negative) 07/08/17 16:30 Urine Ketones Tr mg/dL (Negative) 07/08/17 16:30 Urine Blood Mod (Negative) 07/08/17 16:30 Urine Nitrite Neg (Negative) 07/08/17 16:30 Urine Bilirubin Neg (Negative) 07/08/17 16:30 Urine Urobilinogen < 2.0 mg/dL (<2.0) 07/08/17 16:30 Ur Leukocyte Esterase Tr (Negative) 07/08/17 16:30 Urine WBC (Auto) 8.0 /HPF (0.0-6.0) H 07/08/17 16:30 Urine RBC (Auto) 2.0 /HPF (0.0-6.0) 07/08/17 16:30 U Epithel Cells (Auto) < 1.0 /HPF (0-13.0) 07/08/17 16:30 Urine Mucus Few /HPF 07/08/17 16:30 Urine Yeast (Budding) 1+ /HPF 07/08/17 16:30 Blood Type O POSITIVE 07/08/17 23:29 Antibody Screen Negative 07/08/17 23:29
--- NOTE | 2017-07-16 14:53 | Progress Note ---
Subjective Patient Reports: Positive: feels better, still having pain, flatus, bowel movement Narrative: doing Ok abd soft , fitulogram showed comm with smll bowel with a leak in the pelvic area . output about 100-200 cc of of bilious material Pt on tpn . hoping will close spontaneously . all glo out ,seen with Wound RN will keep under close observation . Objective Vital Signs - 12hr 07/16/17 07/16/17 07/16/17 04:06 04:23 04:36 Temperature 99.0 F Pulse Rate 87 Respiratory 16 20 17 Rate Blood Pressure 93/56 O2 Sat by Pulse 97 Oximetry 07/16/17 08:10 Temperature 99.0 F Pulse Rate 77 Respiratory 18 Rate Blood Pressure 103/60 O2 Sat by Pulse 98 Oximetry - Labs 07/12/17 12:44 07/16/17 05:45 Diabetes panel 07/16/17 Range/Units 05:45 Sodium 138 (137-145) mmol/L Potassium 4.5 (3.6-5.0) mmol/L Chloride 100.9 (98-107) mmol/L Carbon Dioxide 26 (22-30) mmol/L BUN 20 (9-20) mg/dL Creatinine 0.6 L (0.8-1.5) mg/dL Glucose 97 (75-100) mg/dL Calcium 8.1 L (8.4-10.2) mg/dL Calcium panel 07/16/17 Range/Units 05:45 Calcium 8.1 L (8.4-10.2) mg/dL Phosphorus 2.90 (2.5-4.5) mg/dL Pituitary panel 07/16/17 Range/Units 05:45 Sodium 138 (137-145) mmol/L Potassium 4.5 (3.6-5.0) mmol/L Chloride 100.9 (98-107) mmol/L Carbon Dioxide 26 (22-30) mmol/L BUN 20 (9-20) mg/dL Creatinine 0.6 L (0.8-1.5) mg/dL Glucose 97 (75-100) mg/dL Calcium 8.1 L (8.4-10.2) mg/dL Adrenal panel 07/16/17 Range/Units 05:45 Sodium 138 (137-145) mmol/L Potassium 4.5 (3.6-5.0) mmol/L Chloride 100.9 (98-107) mmol/L Carbon Dioxide 26 (22-30) mmol/L BUN 20 (9-20) mg/dL Creatinine 0.6 L (0.8-1.5) mg/dL Glucose 97 (75-100) mg/dL Calcium 8.1 L (8.4-10.2) mg/dL
--- NOTE | 2017-07-16 15:57 | Fluoroscopy Report ---
FLUOROSCOPIC FISTULA/SINUS TRACT INJECTION INDICATION: Enterocutaneous fistula. COMPARISON: 07/09/2017. IMAGES/CINE CLIPS: 9 FINDINGS: Patient came to the radiology suite with 2 different drainage sites in the right lower quadrant. The more inferior one draining bilious material first catheterized with a 12 [place] Trevizo and fluoroscopic fistula/sinus tract injection performed utilizing total of 90 cc of Omnipaque 300. Initial human resources compliance manager radiograph demonstrates right lower quadrant skin glo, of which few were removed by Dr. Lopez also present in the room. Midline abdominal skin glo also seen. Overall nonobstructive bowel gas pattern. Subsequent contrast injection promptly opacifies a small bowel loop overlying the sacrum with progressive opacification on subsequent injection as also greater dependent pooling of contrast in the pelvis. Catheter withdrawn at the end of the study. Subsequently, catheterization attempted at the more superior second site of pus drainage, though unsuccessful and appeared superficial. No contrast injection at this site performed. 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 A noncontrast pelvis CT would also be obtained for further localization/details. Thank you for the opportunity to participate in this patient's care.
--- NOTE | 2017-07-16 17:57 | Cat Scan Report ---
FINAL REPORT EXAM: CT ABDOMEN PELVIS WO CON HISTORY: bile leak TECHNIQUE: Spiral CT scanning of the abdomen and pelvis. No oral or IV contrast administered. Multiplanar reformations. PRIORS: 08 Jul 2017. FINDINGS: Abdomen: Examination limited due to lack of contrast administration. Visualized lung bases show mild left basilar atelectasis and very small left pleural effusion, new from comparison. No radiopaque gallstones. Liver grossly unremarkable. Spleen grossly unremarkable. Pancreas grossly unremarkable. Kidneys grossly unremarkable. Adrenal glands grossly unremarkable. Pelvis: Postsurgical changes again noted in the abdomen, including skin glo in the midline and right lower quadrant abdominal wall and bowel anastomoses noted in right lower quadrant. Nonspecific bowel gas pattern, including prominent or mildly dilated small bowel loops containing oral contrast noted centrally. Minimal and ill-defined foci of apparent oral contrast also noted in right lower quadrant extending to abdominal wall and apparent surgical defect suggesting extravasation or leak. Mild extraluminal gas locules and soft tissue thickening/edema also noted in right lower rectus abdominus muscle and abdominal wall surgical defect. Remainder of visualized bowel grossly unremarkable. Large right inguinal hernia again noted, with thick margins or swartz and oral contrast extending from bowel loops in the pelvis into the right hemiscrotum, which may represent contained or incarcerated bowel loop versus free contrast extravasation into the hernia sac. Nonspecific fluid also noted within the right inguinal hernia. Appendix is not confidently identified. No significant free peritoneal fluid or loculated fluid collection. Abdominal aorta non-aneurysmal. Nonspecific prostatic enlargement. IMPRESSION: 1. Postsurgical changes and findings suspicious for dehiscence or small leak, with extraluminal contrast in right lower quadrant extending to surgical wall defect, and also noted in large right inguinal hernia sac, the latter possibly contained within bowel loop or representing dependent contrast collection. Please see above for further details. 2. Nonspecific bowel gas pattern suggesting adynamic ileus, which may be reactive or associated with nonspecific postinflammatory change, including enteritis. Early or partial mechanical bowel obstruction not completely excluded. Clinical correlation and followup may be warranted. 3. Probable mild left basilar atelectasis and very small left pleural effusion, new in the interval.
[2017-07-16] MEDS ORDERED: INTRALIPID 20% 250 ML IV SCH (20:00)
[2017-07-16] MEDS ORDERED: TPN ADULT 2,400 ML IV SCH (20:00)
[2017-07-17] MEDS: MORPHINE IV PRN ×4 (02:43→17:40)
[2017-07-17 08:00] LABS: BUN/Creatinine Ratio 32; Blood Urea Nitrogen 19 mg/dL (9-20); Calcium 8.2 mg/dL (8.4-10.2); Hemolysis Index 34
[2017-07-17] MEDS: SODIUM CHLORIDE FLUSH SYRINGE 10 ML IV SCH ×2 (09:29→21:07)
[2017-07-17] MEDS: HEPARIN SUB-Q SCH ×2 (09:30→21:05)
[2017-07-17] MEDS: HABITROL TD SCH (09:30)
[2017-07-17] MEDS: PEPCID IV SCH ×2 (09:30→21:05)
[2017-07-17 10:06] LABS: Alanine Aminotransferase < 5 units/L (7-56)
--- NOTE | 2017-07-17 10:42 | Progress Note ---
Assessment and Plan Assessment and plan: Pelvic abscess and wound dehiscence s/p recent surgery on last admission(06/30) Continue Merrem and Vancomycin Dr. Lopez following Conservative Mx for now fistulogram obtained and showed sinus tract draining intra-abdominal collection Patient also placed on TPN Severe sepsis secondary to the pelvic abscess and bacteremia patient placed on sepsis protocol wound Culture growing Escherichia coli and MDR Enterobacter, blood cx positive for E. coli ID on board, Continue meropenem and levaquin Hypotension secondary to sepsis Patient's blood pressure responded to IV hydration Continue iv fluids Recurrent right inguinal hernia The surgeon has been consulted. Conservative management for now Transaminitis likely secondary to sepsis, Now resolved Will continue to monitor his liver function test levels Acute kidney injury from severe sepsis Patient will be placed on IV fluid, will monitor his creatinine level Cr now normal Anemia Will monitor his H/H and transfuse if hgb < 7 Prophylaxis DVT prophylaxis with SCD GI prophylaxis with Protonix Full code status History Interval history: No abdominal pain, no fever Hospitalist Physical - Physical exam Narrative exam: General:Not in acute distress, lying in bed, HEENT:Normocephalic, atraumatic Neck:supple,no JVD Lungs: Clear to auscultation, no rales, no wheeze Heart:S1 and S2 regular, no murmurs, rubs or gallop Abd: soft, dressing over abdominal wound, drainage, normal bowel sounds Ext:no edema, no clubbing or cyanosis Neuro:Awake,alert,oriented x 3, moves all extremities, Psych:normal mood - Constitutional Vitals: Temp Pulse Resp BP Pulse Ox 98.2 F 87 20 92/56 97 07/17/17 07:50 07/17/17 07:50 07/17/17 09:28 07/17/17 07:50 07/17/17 08:59 General appearance: Present: no acute distress, other (ill looking) Results - Labs CBC & Chem 7: 07/12/17 12:44 07/17/17 06:00 Labs: Laboratory Last Values WBC 13.7 K/mm3 (4.5-11.0) H 07/12/17 12:44 RBC 2.91 M/mm3 (3.65-5.03) L 07/12/17 12:44 Hgb 8.9 gm/dl (11.8-15.2) L 07/12/17 12:44 Hct 27.8 % (35.5-45.6) L 07/12/17 12:44 MCV 96 fl (84-94) H 07/12/17 12:44 MCH 31 pg (28-32) 07/12/17 12:44 MCHC 32 % (32-34) 07/12/17 12:44 RDW 14.9 % (13.2-15.2) 07/12/17 12:44 Plt Count 397 K/mm3 (140-440) 07/12/17 12:44 Lymph % (Auto) 6.2 % (13.4-35.0) L 07/11/17 05:41 [place] % (Auto) 6.3 % (0.0-7.3) 07/11/17 05:41 Eos % (Auto) 0.6 % (0.0-4.3) 07/11/17 05:41 Baso % (Auto) 0.1 % (0.0-1.8) 07/11/17 05:41 Lymph # 1.0 K/mm3 (1.2-5.4) L 07/11/17 05:41 [place] # 1.0 K/mm3 (0.0-0.8) H 07/11/17 05:41 Eos # 0.1 K/mm3 (0.0-0.4) 07/11/17 05:41 Baso # 0.0 K/mm3 (0.0-0.1) 07/11/17 05:41 Add Manual Diff Complete 07/10/17 04:16 Total Counted 100 07/10/17 04:16 Seg Neutrophils % 86.8 % (40.0-70.0) H 07/11/17 05:41 Seg Neuts % (Manual) 93.0 % (40.0-70.0) H 07/10/17 04:16 Band Neutrophils % 1.0 % 07/10/17 04:16 Lymphocytes % (Manual) 3.0 % (13.4-35.0) L 07/10/17 04:16 Reactive Lymphs % (Man) 0 % 07/10/17 04:16 Monocytes % (Manual) 3.0 % (0.0-7.3) 07/10/17 04:16 Eosinophils % (Manual) 0 % (0.0-4.3) 07/10/17 04:16 Basophils % (Manual) 0 % (0.0-1.8) 07/10/17 04:16 Metamyelocytes % 0 % 07/10/17 04:16 Myelocytes % 0 % 07/10/17 04:16 Promyelocytes % 0 % 07/10/17 04:16 Blast Cells % 0 % 07/10/17 04:16 Nucleated RBC % Not Reportable 07/10/17 04:16 Seg Neutrophils # 14.1 K/mm3 (1.8-7.7) H 07/11/17 05:41 Seg Neutrophils # Man 24.9 K/mm3 (1.8-7.7) H 07/10/17 04:16 Band Neutrophils # 0.3 K/mm3 07/10/17 04:16 Lymphocytes # (Manual) 0.8 K/mm3 (1.2-5.4) L 07/10/17 04:16 Abs React Lymphs (Man) 0.0 K/mm3 07/10/17 04:16 Monocytes # (Manual) 0.8 K/mm3 (0.0-0.8) 07/10/17 04:16 Eosinophils # (Manual) 0.0 K/mm3 (0.0-0.4) 07/10/17 04:16 Basophils # (Manual) 0.0 K/mm3 (0.0-0.1) 07/10/17 04:16 Metamyelocytes # 0.0 K/mm3 07/10/17 04:16 Myelocytes # 0.0 K/mm3 07/10/17 04:16 Promyelocytes # 0.0 K/mm3 07/10/17 04:16 Blast Cells # 0.0 K/mm3 07/10/17 04:16 WBC Morphology Not Reportable 07/10/17 04:16 Hypersegmented Neuts Not Reportable 07/10/17 04:16 Hyposegmented Neuts Not Reportable 07/10/17 04:16 Hypogranular Neuts Not Reportable 07/10/17 04:16 Smudge Cells Not Reportable 07/10/17 04:16 Toxic Granulation Not Reportable 07/10/17 04:16 Toxic Vacuolation Not Reportable 07/10/17 04:16 Dohle Bodies Not Reportable 07/10/17 04:16 Pelger-Huet Anomaly Not Reportable 07/10/17 04:16 Winter Rods Not Reportable 07/10/17 04:16 Platelet Estimate Appears normal 07/10/17 04:16 Clumped Platelets Not Reportable 07/10/17 04:16 Plt Clumps, EDTA Not Reportable 07/10/17 04:16 Large Platelets Not Reportable 07/10/17 04:16 Giant Platelets Not Reportable 07/10/17 04:16 Platelet Satelliting Not Reportable 07/10/17 04:16 Plt Morphology Comment Not Reportable 07/10/17 04:16 RBC Morphology Not Reportable 07/10/17 04:16 Dimorphic RBCs Not Reportable 07/10/17 04:16 Polychromasia Not Reportable 07/10/17 04:16 Hypochromasia 1+ 07/10/17 04:16 Poikilocytosis Not Reportable 07/10/17 04:16 Anisocytosis 1+ 07/10/17 04:16 Microcytosis Not Reportable 07/10/17 04:16 Macrocytosis Not Reportable 07/10/17 04:16 Spherocytes Not Reportable 07/10/17 04:16 Pappenheimer Bodies Not Reportable 07/10/17 04:16 Sickle Cells Not Reportable 07/10/17 04:16 Target Cells Not Reportable 07/10/17 04:16 Tear Drop Cells Not Reportable 07/10/17 04:16 Ovalocytes 1+ 07/10/17 04:16 Helmet Cells Not Reportable 07/10/17 04:16 Krishnan-[place] Bodies Not Reportable 07/10/17 04:16 [place] Rings Not Reportable 07/10/17 04:16 Rigoberto Cells Not Reportable 07/10/17 04:16 Bite Cells Not Reportable 07/10/17 04:16 Crenated Cell Not Reportable 07/10/17 04:16 Elliptocytes Not Reportable 07/10/17 04:16 Acanthocytes (Spur) Not Reportable 07/10/17 04:16 Rouleaux Not Reportable 07/10/17 04:16 Hemoglobin C Crystals Not Reportable 07/10/17 04:16 Schistocytes Not Reportable 07/10/17 04:16 Malaria parasites Not Reportable 07/10/17 04:16 Erasmo Bodies Not Reportable 07/10/17 04:16 Hem Pathologist Commnt No 07/10/17 04:16 PT 16.9 Sec. (12.2-14.9) H 07/08/17 18:05 INR 1.30 (0.87-1.13) H 07/08/17 18:05 VBG pH 7.443 (7.320-7.420) H 07/08/17 18:05 Sodium 134 mmol/L (137-145) L 07/17/17 06:00 Potassium 4.1 mmol/L (3.6-5.0) 07/17/17 06:00 Chloride 94.8 mmol/L (98-107) L 07/17/17 06:00 Carbon Dioxide 28 mmol/L (22-30) 07/17/17 06:00 Anion Gap 12 mmol/L 07/17/17 06:00 BUN 19 mg/dL (9-20) 07/17/17 06:00 Creatinine 0.6 mg/dL (0.8-1.5) L 07/17/17 06:00 Estimated GFR > 60 ml/min 07/17/17 06:00 BUN/Creatinine Ratio 32 % 07/17/17 06:00 Glucose 139 mg/dL (75-100) H 07/17/17 06:00 POC Glucose 120 (70-105) H 07/17/17 07:50 Lactic Acid 1.10 mmol/L (0.7-2.0) 07/09/17 08:06 Calcium 8.2 mg/dL (8.4-10.2) L 07/17/17 06:00 Phosphorus 3.10 mg/dL (2.5-4.5) 07/17/17 06:00 Magnesium 2.00 mg/dL (1.7-2.3) 07/16/17 05:45 Total Bilirubin 0.20 mg/dL (0.1-1.2) 07/17/17 06:00 AST < 5 units/L (5-40) L 07/17/17 06:00 ALT < 5 units/L (7-56) L 07/17/17 06:00 Alkaline Phosphatase 99 units/L (35-129) 07/17/17 06:00 C-Reactive Protein 19.80 mg/dL (0.00-1.30) H 07/11/17 05:41 Total Protein 6.5 g/dL (6.3-8.2) 07/17/17 06:00 Albumin 2.0 g/dL (3.9-5) L 07/17/17 06:00 Albumin/Globulin Ratio 0.4 % 07/17/17 06:00 Triglycerides 70 mg/dL (2-149) 07/14/17 05:43 Urine Color Yellow (Yellow) 07/08/17 16:30 Urine Turbidity Clear (Clear) 07/08/17 16:30 Urine pH 5.0 (5.0-7.0) 07/08/17 16:30 Ur Specific [place] 1.027 (1.003-1.030) 07/08/17 16:30 Urine Protein 30 mg/dl mg/dL (Negative) 07/08/17 16:30 Urine Glucose (UA) Neg mg/dL (Negative) 07/08/17 16:30 Urine Ketones Tr mg/dL (Negative) 07/08/17 16:30 Urine Blood Mod (Negative) 07/08/17 16:30 Urine Nitrite Neg (Negative) 07/08/17 16:30 Urine Bilirubin Neg (Negative) 07/08/17 16:30 Urine Urobilinogen < 2.0 mg/dL (<2.0) 07/08/17 16:30 Ur Leukocyte Esterase Tr (Negative) 07/08/17 16:30 Urine WBC (Auto) 8.0 /HPF (0.0-6.0) H 07/08/17 16:30 Urine RBC (Auto) 2.0 /HPF (0.0-6.0) 07/08/17 16:30 U Epithel Cells (Auto) < 1.0 /HPF (0-13.0) 07/08/17 16:30 Urine Mucus Few /HPF 07/08/17 16:30 Urine Yeast (Budding) 1+ /HPF 07/08/17 16:30 Blood Type O POSITIVE 07/08/17 23:29 Antibody Screen Negative 07/08/17 23:29
[2017-07-17] MEDS: MERREM 1,000 MG in NACL 0.9% 100 ML IV SCH ×3 (14:37→21:05)
[2017-07-17] MEDS: ALBURX 25% (ALBUMIN) IV SCH (14:39)
[2017-07-17] MEDS ORDERED: TPN ADULT 2,016 ML IV SCH (20:00)
[2017-07-18] MEDS: MORPHINE IV PRN ×4 (02:17→14:15)
[2017-07-18] MEDS: ALBURX 25% (ALBUMIN) IV SCH ×2 (03:13→15:25)
[2017-07-18] MEDS: MERREM 1,000 MG in NACL 0.9% 100 ML IV SCH ×3 (05:46→23:21)
[2017-07-18 06:28] LABS: BUN/Creatinine Ratio 27; Blood Urea Nitrogen 19 mg/dL (9-20); Calcium 8.4 mg/dL (8.4-10.2); Hemolysis Index 0
[2017-07-18 07:48] LABS: Basophils # (Auto) 0.1 K/mm3 (0.0-0.1); Basophils % (Auto) 0.9 % (0.0-1.8); Eosinophils # (Auto) 0.2 K/mm3 (0.0-0.4); Hematocrit 25.5 % (35.5-45.6); Hemoglobin 8.8 gm/dl (11.8-15.2); Lymphocytes # (Auto) 1.1 K/mm3 (1.2-5.4); Lymphocytes % (Auto) 12.6 % (13.4-35.0); Mean Corpuscular HGB Conc 35 % (32-34); Mean Corpuscular Hemoglobin 32 pg (28-32); Mean Corpuscular Volume 93 fl (84-94); Mean Platelet Volume 7.8 fl (6-12); Monocytes # (Auto) 0.8 K/mm3 (0.0-0.8); Monocytes % (Auto) 8.5 % (0.0-7.3); Platelet Count 457 K/mm3 (140-440); Red Blood Count 2.74 M/mm3 (3.65-5.03); Red Cell Distribution Width 14.9 % (13.2-15.2)
[2017-07-18] MEDS: SODIUM CHLORIDE FLUSH SYRINGE 10 ML IV SCH (10:00)
--- NOTE | 2017-07-18 10:20 | Progress Note ---
Assessment and Plan Assessment and plan: Pelvic abscess and wound dehiscence s/p recent surgery on last admission(06/30) Continue Merrem and Vancomycin Dr. Lopez following Conservative management for now fistulogram obtained and showed sinus tract draining intra-abdominal collection Patient also placed on TPN Severe sepsis secondary to the pelvic abscess and bacteremia patient placed on sepsis protocol wound Culture growing Escherichia coli and MDR Enterobacter, blood cx positive for E. coli ID on board, Continue meropenem and levaquin Hypotension secondary to sepsis Patient's blood pressure responded to IV hydration Continue iv fluids Recurrent right inguinal hernia The surgeon has been consulted. Conservative management for now Transaminitis likely secondary to sepsis, Now resolved Will continue to monitor his liver function test levels Acute kidney injury from severe sepsis Patient will be placed on IV fluid, will monitor his creatinine level Cr now normal Anemia Will monitor his H/H and transfuse if hgb < 7 Prophylaxis DVT prophylaxis with SCD GI prophylaxis with Protonix Full code status History Interval history: No abdominal pain, no fever Hospitalist Physical - Physical exam Narrative exam: General:Not in acute distress, lying in bed, HEENT:Normocephalic, atraumatic Neck:supple,no JVD Lungs: Clear to auscultation, no rales, no wheeze Heart:S1 and S2 regular, no murmurs, rubs or gallop Abd: soft, dressing over abdominal wound, drainage, normal bowel sounds Ext:no edema, no clubbing or cyanosis Neuro:Awake,alert,oriented x 3, moves all extremities, Psych:normal mood - Constitutional Vitals: Temp Pulse Resp BP Pulse Ox 99.0 F 88 18 99/53 97 07/18/17 05:11 07/18/17 05:11 07/18/17 05:11 07/18/17 05:11 07/18/17 07:58 General appearance: Present: no acute distress, other (ill looking) Results - Labs CBC & Chem 7: 07/18/17 05:37 07/18/17 05:50 Labs: Laboratory Last Values WBC 8.9 K/mm3 (4.5-11.0) 07/18/17 05:37 RBC 2.74 M/mm3 (3.65-5.03) L 07/18/17 05:37 Hgb 8.8 gm/dl (11.8-15.2) L 07/18/17 05:37 Hct 25.5 % (35.5-45.6) L 07/18/17 05:37 MCV 93 fl (84-94) 07/18/17 05:37 MCH 32 pg (28-32) 07/18/17 05:37 MCHC 35 % (32-34) H 07/18/17 05:37 RDW 14.9 % (13.2-15.2) 07/18/17 05:37 Plt Count 457 K/mm3 (140-440) H 07/18/17 05:37 Lymph % (Auto) 12.6 % (13.4-35.0) L 07/18/17 05:37 [place] % (Auto) 8.5 % (0.0-7.3) H 07/18/17 05:37 Eos % (Auto) 2.0 % (0.0-4.3) 07/18/17 05:37 Baso % (Auto) 0.9 % (0.0-1.8) 07/18/17 05:37 Lymph # 1.1 K/mm3 (1.2-5.4) L 07/18/17 05:37 [place] # 0.8 K/mm3 (0.0-0.8) 07/18/17 05:37 Eos # 0.2 K/mm3 (0.0-0.4) 07/18/17 05:37 Baso # 0.1 K/mm3 (0.0-0.1) 07/18/17 05:37 Add Manual Diff Complete 07/10/17 04:16 Total Counted 100 07/10/17 04:16 Seg Neutrophils % 76.0 % (40.0-70.0) H 07/18/17 05:37 Seg Neuts % (Manual) 93.0 % (40.0-70.0) H 07/10/17 04:16 Band Neutrophils % 1.0 % 07/10/17 04:16 Lymphocytes % (Manual) 3.0 % (13.4-35.0) L 07/10/17 04:16 Reactive Lymphs % (Man) 0 % 07/10/17 04:16 Monocytes % (Manual) 3.0 % (0.0-7.3) 07/10/17 04:16 Eosinophils % (Manual) 0 % (0.0-4.3) 07/10/17 04:16 Basophils % (Manual) 0 % (0.0-1.8) 07/10/17 04:16 Metamyelocytes % 0 % 07/10/17 04:16 Myelocytes % 0 % 07/10/17 04:16 Promyelocytes % 0 % 07/10/17 04:16 Blast Cells % 0 % 07/10/17 04:16 Nucleated RBC % Not Reportable 07/10/17 04:16 Seg Neutrophils # 6.8 K/mm3 (1.8-7.7) 07/18/17 05:37 Seg Neutrophils # Man 24.9 K/mm3 (1.8-7.7) H 07/10/17 04:16 Band Neutrophils # 0.3 K/mm3 07/10/17 04:16 Lymphocytes # (Manual) 0.8 K/mm3 (1.2-5.4) L 07/10/17 04:16 Abs React Lymphs (Man) 0.0 K/mm3 07/10/17 04:16 Monocytes # (Manual) 0.8 K/mm3 (0.0-0.8) 07/10/17 04:16 Eosinophils # (Manual) 0.0 K/mm3 (0.0-0.4) 07/10/17 04:16 Basophils # (Manual) 0.0 K/mm3 (0.0-0.1) 07/10/17 04:16 Metamyelocytes # 0.0 K/mm3 07/10/17 04:16 Myelocytes # 0.0 K/mm3 07/10/17 04:16 Promyelocytes # 0.0 K/mm3 07/10/17 04:16 Blast Cells # 0.0 K/mm3 07/10/17 04:16 WBC Morphology Not Reportable 07/10/17 04:16 Hypersegmented Neuts Not Reportable 07/10/17 04:16 Hyposegmented Neuts Not Reportable 07/10/17 04:16 Hypogranular Neuts Not Reportable 07/10/17 04:16 Smudge Cells Not Reportable 07/10/17 04:16 Toxic Granulation Not Reportable 07/10/17 04:16 Toxic Vacuolation Not Reportable 07/10/17 04:16 Dohle Bodies Not Reportable 07/10/17 04:16 Pelger-Huet Anomaly Not Reportable 07/10/17 04:16 Winter Rods Not Reportable 07/10/17 04:16 Platelet Estimate Appears normal 07/10/17 04:16 Clumped Platelets Not Reportable 07/10/17 04:16 Plt Clumps, EDTA Not Reportable 07/10/17 04:16 Large Platelets Not Reportable 07/10/17 04:16 Giant Platelets Not Reportable 07/10/17 04:16 Platelet Satelliting Not Reportable 07/10/17 04:16 Plt Morphology Comment Not Reportable 07/10/17 04:16 RBC Morphology Not Reportable 07/10/17 04:16 Dimorphic RBCs Not Reportable 07/10/17 04:16 Polychromasia Not Reportable 07/10/17 04:16 Hypochromasia 1+ 07/10/17 04:16 Poikilocytosis Not Reportable 07/10/17 04:16 Anisocytosis 1+ 07/10/17 04:16 Microcytosis Not Reportable 07/10/17 04:16 Macrocytosis Not Reportable 07/10/17 04:16 Spherocytes Not Reportable 07/10/17 04:16 Pappenheimer Bodies Not Reportable 07/10/17 04:16 Sickle Cells Not Reportable 07/10/17 04:16 Target Cells Not Reportable 07/10/17 04:16 Tear Drop Cells Not Reportable 07/10/17 04:16 Ovalocytes 1+ 07/10/17 04:16 Helmet Cells Not Reportable 07/10/17 04:16 [place] Bodies Not Reportable 07/10/17 04:16 [place] Rings Not Reportable 07/10/17 04:16 Rigoberto Cells Not Reportable 07/10/17 04:16 Bite Cells Not Reportable 07/10/17 04:16 Crenated Cell Not Reportable 07/10/17 04:16 Elliptocytes Not Reportable 07/10/17 04:16 Acanthocytes (Spur) Not Reportable 07/10/17 04:16 Rouleaux Not Reportable 07/10/17 04:16 Hemoglobin C Crystals Not Reportable 07/10/17 04:16 Schistocytes Not Reportable 07/10/17 04:16 Malaria parasites Not Reportable 07/10/17 04:16 Erasmo Bodies Not Reportable 07/10/17 04:16 Hem Pathologist Commnt No 07/10/17 04:16 PT 16.9 Sec. (12.2-14.9) H 07/08/17 18:05 INR 1.30 (0.87-1.13) H 07/08/17 18:05 VBG pH 7.443 (7.320-7.420) H 07/08/17 18:05 Sodium 136 mmol/L (137-145) L 07/18/17 05:50 Potassium 4.6 mmol/L (3.6-5.0) 07/18/17 05:50 Chloride 98.9 mmol/L (98-107) 07/18/17 05:50 Carbon Dioxide 27 mmol/L (22-30) 07/18/17 05:50 Anion Gap 15 mmol/L 07/18/17 05:50 BUN 19 mg/dL (9-20) 07/18/17 05:50 Creatinine 0.7 mg/dL (0.8-1.5) L 07/18/17 05:50 Estimated GFR > 60 ml/min 07/18/17 05:50 BUN/Creatinine Ratio 27 % 07/18/17 05:50 Glucose 91 mg/dL (75-100) 07/18/17 05:50 POC Glucose 116 (70-105) H 07/18/17 06:06 Lactic Acid 1.10 mmol/L (0.7-2.0) 07/09/17 08:06 Calcium 8.4 mg/dL (8.4-10.2) 07/18/17 05:50 Phosphorus 3.00 mg/dL (2.5-4.5) 07/18/17 05:50 Magnesium 1.90 mg/dL (1.7-2.3) 07/18/17 05:50 Total Bilirubin 0.20 mg/dL (0.1-1.2) 07/17/17 06:00 AST < 5 units/L (5-40) L 07/17/17 06:00 ALT < 5 units/L (7-56) L 07/17/17 06:00 Alkaline Phosphatase 99 units/L (35-129) 07/17/17 06:00 C-Reactive Protein 19.80 mg/dL (0.00-1.30) H 07/11/17 05:41 Total Protein 6.5 g/dL (6.3-8.2) 07/17/17 06:00 Albumin 2.0 g/dL (3.9-5) L 07/17/17 06:00 Albumin/Globulin Ratio 0.4 % 07/17/17 06:00 Triglycerides 70 mg/dL (2-149) 07/14/17 05:43 Urine Color Yellow (Yellow) 07/08/17 16:30 Urine Turbidity Clear (Clear) 07/08/17 16:30 Urine pH 5.0 (5.0-7.0) 07/08/17 16:30 Ur Specific [place] 1.027 (1.003-1.030) 07/08/17 16:30 Urine Protein 30 mg/dl mg/dL (Negative) 07/08/17 16:30 Urine Glucose (UA) Neg mg/dL (Negative) 07/08/17 16:30 Urine Ketones Tr mg/dL (Negative) 07/08/17 16:30 Urine Blood Mod (Negative) 07/08/17 16:30 Urine Nitrite Neg (Negative) 07/08/17 16:30 Urine Bilirubin Neg (Negative) 07/08/17 16:30 Urine Urobilinogen < 2.0 mg/dL (<2.0) 07/08/17 16:30 Ur Leukocyte Esterase Tr (Negative) 07/08/17 16:30 Urine WBC (Auto) 8.0 /HPF (0.0-6.0) H 07/08/17 16:30 Urine RBC (Auto) 2.0 /HPF (0.0-6.0) 07/08/17 16:30 U Epithel Cells (Auto) < 1.0 /HPF (0-13.0) 07/08/17 16:30 Urine Mucus Few /HPF 07/08/17 16:30 Urine Yeast (Budding) 1+ /HPF 07/08/17 16:30 Blood Type O POSITIVE 07/08/17 23:29 Antibody Screen Negative 07/08/17 23:29
[2017-07-18] MEDS: PEPCID IV SCH ×2 (10:41→22:21)
[2017-07-18] MEDS: HABITROL TD SCH (10:44)
[2017-07-18] MEDS: HEPARIN SUB-Q SCH ×2 (10:47→22:20)
--- NOTE | 2017-07-18 12:35 | Progress Note ---
Subjective Narrative: minimal change in the clinical picture , ebd soft 300 cc GI contents in the Bag will cont observation on albumin , KUB in AM . on TPN Objective Vital Signs - 12hr 07/18/17 07/18/17 05:11 07:58 Temperature 99.0 F Pulse Rate 88 Respiratory 18 Rate Blood Pressure 99/53 O2 Sat by Pulse 98 97 Oximetry - Labs 07/18/17 05:37 07/18/17 05:50 Diabetes panel 07/18/17 Range/Units 05:50 Sodium 136 L (137-145) mmol/L Potassium 4.6 (3.6-5.0) mmol/L Chloride 98.9 (98-107) mmol/L Carbon Dioxide 27 (22-30) mmol/L BUN 19 (9-20) mg/dL Creatinine 0.7 L (0.8-1.5) mg/dL Glucose 91 (75-100) mg/dL Calcium 8.4 (8.4-10.2) mg/dL Calcium panel 07/18/17 Range/Units 05:50 Calcium 8.4 (8.4-10.2) mg/dL Phosphorus 3.00 (2.5-4.5) mg/dL Pituitary panel 07/18/17 Range/Units 05:50 Sodium 136 L (137-145) mmol/L Potassium 4.6 (3.6-5.0) mmol/L Chloride 98.9 (98-107) mmol/L Carbon Dioxide 27 (22-30) mmol/L BUN 19 (9-20) mg/dL Creatinine 0.7 L (0.8-1.5) mg/dL Glucose 91 (75-100) mg/dL Calcium 8.4 (8.4-10.2) mg/dL Adrenal panel 07/18/17 Range/Units 05:50 Sodium 136 L (137-145) mmol/L Potassium 4.6 (3.6-5.0) mmol/L Chloride 98.9 (98-107) mmol/L Carbon Dioxide 27 (22-30) mmol/L BUN 19 (9-20) mg/dL Creatinine 0.7 L (0.8-1.5) mg/dL Glucose 91 (75-100) mg/dL Calcium 8.4 (8.4-10.2) mg/dL
--- NOTE | 2017-07-18 13:59 | XRay Report ---
ABDOMEN RADIOGRAPH INDICATION: Postop. COMPARISON: 07/07/2017 FINDINGS: Frontal abdominal radiograph demonstrates stable bowel gas pattern with few air containing small bowel loops measuring up to 3.1 cm caliber in the right lower quadrant medially. Mid to lower abdominal surgical clips noted near the midline and also few in the right lower quadrant. No pneumatosis or pneumoperitoneum. Clear visualized lung bases. Stable bones. CONCLUSION: No significant interval change in possible postsurgical ileus and/or early or partial small bowel obstruction, as described. Please correlate. Thank you for the opportunity to participate in this patient's care.
[2017-07-18] MEDS ORDERED: TPN ADULT 2,016 ML IV SCH (20:00)
[2017-07-19] MEDS: MORPHINE IV PRN ×3 (00:09→21:47)
[2017-07-19] MEDS: SODIUM CHLORIDE FLUSH SYRINGE 10 ML IV SCH ×4 (00:11→22:05)
[2017-07-19] MEDS: ALBURX 25% (ALBUMIN) IV SCH ×2 (02:14→14:53)
[2017-07-19] MEDS: MERREM 1,000 MG in NACL 0.9% 100 ML IV SCH ×3 (05:43→21:55)
[2017-07-19 06:29] LABS: BUN/Creatinine Ratio TNR; Blood Urea Nitrogen TNR mg/dL (9-20); Calcium TNR mg/dL (8.4-10.2); Hemolysis Index TNR
[2017-07-19 07:49] LABS: BUN/Creatinine Ratio 30; Blood Urea Nitrogen 18 mg/dL (9-20); Calcium 8.5 mg/dL (8.4-10.2); Hemolysis Index 0
[2017-07-19] MEDS: HABITROL TD SCH (09:55)
--- NOTE | 2017-07-19 10:11 | Progress Note ---
Assessment and Plan Assessment and plan: Pelvic abscess and wound dehiscence s/p recent surgery on last admission(06/30) Continue Merrem. Vancomycin discontinued Dr. Lopez following Conservative management for now Fistulogram obtained and showed sinus tract draining intra-abdominal collection Patient also placed on TPN Severe sepsis secondary to the pelvic abscess and bacteremia patient placed on sepsis protocol wound Culture growing Escherichia coli and MDR Enterobacter, blood cx positive for E. coli ID on board, Continue meropenem Hypotension secondary to sepsis Now resolved, BP stable. Continue iv fluids Recurrent right inguinal hernia Conservative management for now Transaminitis likely secondary to sepsis, Now resolved Will continue to monitor his liver function test levels Acute kidney injury from severe sepsis LEIGHA now resolved, Cr 0.7 today Anemia Will monitor his H/H and transfuse if hgb < 7 Prophylaxis DVT prophylaxis with Heparin,SCD GI prophylaxis with Protonix Full code status History Interval history: Mild abdominal pain, no fever, Asking about eating food Hospitalist Physical - Physical exam Narrative exam: General:Not in acute distress, lying in bed, HEENT:Normocephalic, atraumatic Neck:supple,no JVD Lungs: Clear to auscultation, no rales, no wheeze Heart:S1 and S2 regular, no murmurs, rubs or gallop Abd: soft, dressing over abdominal wound, drainage, bowel sounds present Ext:no edema, no clubbing or cyanosis Neuro:Awake,alert,oriented x 3, moves all extremities, Psych:normal mood - Constitutional Vitals: Temp Pulse Resp BP Pulse Ox 98.3 F 90 22 106/62 100 07/19/17 08:00 07/19/17 08:00 07/19/17 08:00 07/19/17 08:00 07/19/17 08:00 General appearance: Present: other (ill looking) Results - Labs CBC & Chem 7: 07/18/17 05:37 07/19/17 07:10 Labs: Laboratory Last Values WBC 8.9 K/mm3 (4.5-11.0) 07/18/17 05:37 RBC 2.74 M/mm3 (3.65-5.03) L 07/18/17 05:37 Hgb 8.8 gm/dl (11.8-15.2) L 07/18/17 05:37 Hct 25.5 % (35.5-45.6) L 07/18/17 05:37 MCV 93 fl (84-94) 07/18/17 05:37 MCH 32 pg (28-32) 07/18/17 05:37 MCHC 35 % (32-34) H 07/18/17 05:37 RDW 14.9 % (13.2-15.2) 07/18/17 05:37 Plt Count 457 K/mm3 (140-440) H 07/18/17 05:37 Lymph % (Auto) 12.6 % (13.4-35.0) L 07/18/17 05:37 Green % (Auto) 8.5 % (0.0-7.3) H 07/18/17 05:37 Eos % (Auto) 2.0 % (0.0-4.3) 07/18/17 05:37 Baso % (Auto) 0.9 % (0.0-1.8) 07/18/17 05:37 Lymph # 1.1 K/mm3 (1.2-5.4) L 07/18/17 05:37 Green # 0.8 K/mm3 (0.0-0.8) 07/18/17 05:37 Eos # 0.2 K/mm3 (0.0-0.4) 07/18/17 05:37 Baso # 0.1 K/mm3 (0.0-0.1) 07/18/17 05:37 Add Manual Diff Complete 07/10/17 04:16 Total Counted 100 07/10/17 04:16 Seg Neutrophils % 76.0 % (40.0-70.0) H 07/18/17 05:37 Seg Neuts % (Manual) 93.0 % (40.0-70.0) H 07/10/17 04:16 Band Neutrophils % 1.0 % 07/10/17 04:16 Lymphocytes % (Manual) 3.0 % (13.4-35.0) L 07/10/17 04:16 Reactive Lymphs % (Man) 0 % 07/10/17 04:16 Monocytes % (Manual) 3.0 % (0.0-7.3) 07/10/17 04:16 Eosinophils % (Manual) 0 % (0.0-4.3) 07/10/17 04:16 Basophils % (Manual) 0 % (0.0-1.8) 07/10/17 04:16 Metamyelocytes % 0 % 07/10/17 04:16 Myelocytes % 0 % 07/10/17 04:16 Promyelocytes % 0 % 07/10/17 04:16 Blast Cells % 0 % 07/10/17 04:16 Nucleated RBC % Not Reportable 07/10/17 04:16 Seg Neutrophils # 6.8 K/mm3 (1.8-7.7) 07/18/17 05:37 Seg Neutrophils # Man 24.9 K/mm3 (1.8-7.7) H 07/10/17 04:16 Band Neutrophils # 0.3 K/mm3 07/10/17 04:16 Lymphocytes # (Manual) 0.8 K/mm3 (1.2-5.4) L 07/10/17 04:16 Abs React Lymphs (Man) 0.0 K/mm3 07/10/17 04:16 Monocytes # (Manual) 0.8 K/mm3 (0.0-0.8) 07/10/17 04:16 Eosinophils # (Manual) 0.0 K/mm3 (0.0-0.4) 07/10/17 04:16 Basophils # (Manual) 0.0 K/mm3 (0.0-0.1) 07/10/17 04:16 Metamyelocytes # 0.0 K/mm3 07/10/17 04:16 Myelocytes # 0.0 K/mm3 07/10/17 04:16 Promyelocytes # 0.0 K/mm3 07/10/17 04:16 Blast Cells # 0.0 K/mm3 07/10/17 04:16 WBC Morphology Not Reportable 07/10/17 04:16 Hypersegmented Neuts Not Reportable 07/10/17 04:16 Hyposegmented Neuts Not Reportable 07/10/17 04:16 Hypogranular Neuts Not Reportable 07/10/17 04:16 Smudge Cells Not Reportable 07/10/17 04:16 Toxic Granulation Not Reportable 07/10/17 04:16 Toxic Vacuolation Not Reportable 07/10/17 04:16 Dohle Bodies Not Reportable 07/10/17 04:16 Pelger-Huet Anomaly Not Reportable 07/10/17 04:16 Winter Rods Not Reportable 07/10/17 04:16 Platelet Estimate Appears normal 07/10/17 04:16 Clumped Platelets Not Reportable 07/10/17 04:16 Plt Clumps, EDTA Not Reportable 07/10/17 04:16 Large Platelets Not Reportable 07/10/17 04:16 Giant Platelets Not Reportable 07/10/17 04:16 Platelet Satelliting Not Reportable 07/10/17 04:16 Plt Morphology Comment Not Reportable 07/10/17 04:16 RBC Morphology Not Reportable 07/10/17 04:16 Dimorphic RBCs Not Reportable 07/10/17 04:16 Polychromasia Not Reportable 07/10/17 04:16 Hypochromasia 1+ 07/10/17 04:16 Poikilocytosis Not Reportable 07/10/17 04:16 Anisocytosis 1+ 07/10/17 04:16 Microcytosis Not Reportable 07/10/17 04:16 Macrocytosis Not Reportable 07/10/17 04:16 Spherocytes Not Reportable 07/10/17 04:16 Pappenheimer Bodies Not Reportable 07/10/17 04:16 Sickle Cells Not Reportable 07/10/17 04:16 Target Cells Not Reportable 07/10/17 04:16 Tear Drop Cells Not Reportable 07/10/17 04:16 Ovalocytes 1+ 07/10/17 04:16 Helmet Cells Not Reportable 07/10/17 04:16 [place] Bodies Not Reportable 07/10/17 04:16 [place] Rings Not Reportable 07/10/17 04:16 [place] Cells Not Reportable 07/10/17 04:16 Bite Cells Not Reportable 07/10/17 04:16 Crenated Cell Not Reportable 07/10/17 04:16 Elliptocytes Not Reportable 07/10/17 04:16 Acanthocytes (Spur) Not Reportable 07/10/17 04:16 Rouleaux Not Reportable 07/10/17 04:16 Hemoglobin C Crystals Not Reportable 07/10/17 04:16 Schistocytes Not Reportable 07/10/17 04:16 Malaria parasites Not Reportable 07/10/17 04:16 Erasmo Bodies Not Reportable 07/10/17 04:16 Hem Pathologist Commnt No 07/10/17 04:16 PT 16.9 Sec. (12.2-14.9) H 07/08/17 18:05 INR 1.30 (0.87-1.13) H 07/08/17 18:05 VBG pH 7.443 (7.320-7.420) H 07/08/17 18:05 Sodium 137 mmol/L (137-145) 07/19/17 07:10 Potassium 4.5 mmol/L (3.6-5.0) 07/19/17 07:10 Chloride 100.6 mmol/L (98-107) 07/19/17 07:10 Carbon Dioxide 27 mmol/L (22-30) 07/19/17 07:10 Anion Gap 14 mmol/L 07/19/17 07:10 BUN 18 mg/dL (9-20) 07/19/17 07:10 Creatinine 0.6 mg/dL (0.8-1.5) L 07/19/17 07:10 Estimated GFR > 60 ml/min 07/19/17 07:10 BUN/Creatinine Ratio 30 % 07/19/17 07:10 Glucose 129 mg/dL (75-100) H 07/19/17 07:10 POC Glucose 126 (70-105) H 07/18/17 22:23 Lactic Acid 1.10 mmol/L (0.7-2.0) 07/09/17 08:06 Calcium 8.5 mg/dL (8.4-10.2) 07/19/17 07:10 Phosphorus 3.00 mg/dL (2.5-4.5) 07/18/17 05:50 Magnesium 1.90 mg/dL (1.7-2.3) 07/18/17 05:50 Total Bilirubin 0.20 mg/dL (0.1-1.2) 07/17/17 06:00 AST < 5 units/L (5-40) L 07/17/17 06:00 ALT < 5 units/L (7-56) L 07/17/17 06:00 Alkaline Phosphatase 99 units/L (35-129) 07/17/17 06:00 C-Reactive Protein 19.80 mg/dL (0.00-1.30) H 07/11/17 05:41 Total Protein 6.5 g/dL (6.3-8.2) 07/17/17 06:00 Albumin 2.0 g/dL (3.9-5) L 07/17/17 06:00 Albumin/Globulin Ratio 0.4 % 07/17/17 06:00 Triglycerides 70 mg/dL (2-149) 07/14/17 05:43 Urine Color Yellow (Yellow) 07/08/17 16:30 Urine Turbidity Clear (Clear) 07/08/17 16:30 Urine pH 5.0 (5.0-7.0) 07/08/17 16:30 Ur Specific Mchen[place] 1.027 (1.003-1.030) 07/08/17 16:30 Urine Protein 30 mg/dl mg/dL (Negative) 07/08/17 16:30 Urine Glucose (UA) Neg mg/dL (Negative) 07/08/17 16:30 Urine Ketones Tr mg/dL (Negative) 07/08/17 16:30 Urine Blood Mod (Negative) 07/08/17 16:30 Urine Nitrite Neg (Negative) 07/08/17 16:30 Urine Bilirubin Neg (Negative) 07/08/17 16:30 Urine Urobilinogen < 2.0 mg/dL (<2.0) 07/08/17 16:30 Ur Leukocyte Esterase Tr (Negative) 07/08/17 16:30 Urine WBC (Auto) 8.0 /HPF (0.0-6.0) H 07/08/17 16:30 Urine RBC (Auto) 2.0 /HPF (0.0-6.0) 07/08/17 16:30 U Epithel Cells (Auto) < 1.0 /HPF (0-13.0) 07/08/17 16:30 Urine Mucus Few /HPF 07/08/17 16:30 Urine Yeast (Budding) 1+ /HPF 07/08/17 16:30 Blood Type O POSITIVE 07/08/17 23:29 Antibody Screen Negative 07/08/17 23:29
[2017-07-19] MEDS: PEPCID IV SCH ×2 (10:37→21:52)
[2017-07-19] MEDS: HEPARIN SUB-Q SCH ×2 (10:54→21:52)
--- NOTE | 2017-07-19 15:20 | Progress Note ---
Subjective Patient Reports: Positive: feels better, still having pain, flatus, bowel movement Narrative: feels improving although GI contents seen in the enterocutaneous bag , will con cautiously ob serve Pt will need small bowel series . Objective Vital Signs - 12hr 07/19/17 07/19/17 07/19/17 05:57 06:50 08:00 Temperature 98.3 F 98.5 F 98.3 F Pulse Rate 94 H 98 H 90 Respiratory 18 18 22 Rate Blood Pressure 91/51 144/62 106/62 [Right] O2 Sat by Pulse 96 98 100 Oximetry - Labs 07/18/17 05:37 07/19/17 07:10 Diabetes panel 07/19/17 07/19/17 Range/Units 05:21 07:10 Sodium TNR 137 Potassium TNR 4.5 Chloride TNR 100.6 Carbon Dioxide TNR 27 BUN TNR 18 Creatinine TNR 0.6 L Glucose TNR 129 H Calcium TNR 8.5 Calcium panel 07/19/17 07/19/17 Range/Units 05:21 07:10 Calcium TNR 8.5 Pituitary panel 07/19/17 07/19/17 Range/Units 05:21 07:10 Sodium TNR 137 Potassium TNR 4.5 Chloride TNR 100.6 Carbon Dioxide TNR 27 BUN TNR 18 Creatinine TNR 0.6 L Glucose TNR 129 H Calcium TNR 8.5 Adrenal panel 07/19/17 07/19/17 Range/Units 05:21 07:10 Sodium TNR 137 Potassium TNR 4.5 Chloride TNR 100.6 Carbon Dioxide TNR 27 BUN TNR 18 Creatinine TNR 0.6 L Glucose TNR 129 H Calcium TNR 8.5
--- NOTE | 2017-07-19 16:00 | Progress Note ---
Assessment and Plan Assessment: 1) Severe sepsis: better. Etiology most likely surgical wound infection +/- intra-abdominal abscess +/- E coli bacteremia. 2) E coli bacteremia: from surgical site infection -Blood cx / E coli -Repeat blood cx no growth so far -CRP=19 3) Surgical wound infection ?dehiscence ? leak with intra-abdominal abscess vs. collection -Wound cx / E coli and MDR Enterobacter -Ct abd showed continued or recurrent large right inguinal canal hernia extending into scrotum and possible large pelvic abscess. -Fistulogram showed positive sinus tract communicating with blind end presumedly a collection. 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 Per Dr Lopez note there was GI content on the osteomy bag ? Discussed with Dr Rivera Thank you for your consultation, will follow up with you. Johana Mcqueen MD Infectious Diseases Specialist [facility] M [phone] O [phone] Subjective Date of service: 07/19/17 Principal diagnosis: Severe Sepsis; Intra-Abdominal Abscess; Gram negative bacteremia Interval history: Feels ok, reports leakage is better. No fever. Microbiology: Blood cultures: / E coli 5/6 neg Urine cultures: 07/08 <10K Respiratory cultures: Wound cultures: /3 E coli and MDR Enterobacter Stool cultures: Other: Current Antimicrobials: meropenem 07/12 Previous Antimicrobials: Flagyl / Vancomycin / Cefepime / Objective - Exam Narrative Exam: General appearance: Alert in NAD, conversant Eyes: anicteric sclerae, moist conjunctivae; no lid-lag; PERRLA HENT: Atraumatic; oropharynx clear poor dentition Neck: Trachea midline; supple, no thyromegaly or lymphadenopathy Lungs: CTA, with normal respiratory effort and no intercostal retractions CV: RRR, no murmurs Abdomen: Soft, +midline wound +right groin wound upper portion open with purulence and inferior portion covered with ostomy bag still green leakage Extremities: No peripheral edema or extremity lymphadenopathy Skin: Normal temperature, turgor and texture; no rash, ulcers or subcutaneous nodules Psych: Appropriate affect, alert and oriented to person, place and time. Neuro: alert and oriented x 3. Moving all extermities Lines: - Constitutional Vitals: Vital Signs Temp Pulse Resp BP Pulse Ox 98.3 F 90 22 106/62 100 07/19/17 08:00 07/19/17 08:00 07/19/17 08:00 07/19/17 08:00 07/19/17 08:00 Temperature -Last 24 Hours Temperature 98.3 F Temperature 98.5 F Temperature 98.3 F Temperature 98.9 F - Labs CBC & Chem 7: 07/18/17 05:37 07/19/17 07:10 Labs: Abnormal lab results 07/18/17 07/19/17 Range/Units 22:23 07:10 Creatinine 0.6 L (0.8-1.5) mg/dL Glucose 129 H (75-100) mg/dL POC Glucose 126 H (70-105)
[2017-07-19] MEDS ORDERED: TPN ADULT 2,016 ML IV SCH (20:00)
[2017-07-19] MEDS ORDERED: INTRALIPID 20% 250 ML IV SCH (20:00)
[2017-07-20] MEDS: MORPHINE IV PRN ×5 (01:48→21:43)
[2017-07-20] MEDS: ALBURX 25% (ALBUMIN) IV SCH (04:54)
[2017-07-20] MEDS: MERREM 1,000 MG in NACL 0.9% 100 ML IV SCH ×3 (06:15→23:42)
[2017-07-20 08:13] LABS: Alanine Aminotransferase 19 units/L (7-56); BUN/Creatinine Ratio 34; Blood Urea Nitrogen 17 mg/dL (9-20); Calcium 8.4 mg/dL (8.4-10.2); Hemolysis Index 0
[2017-07-20] MEDS: PEPCID IV SCH ×2 (10:00→22:41)
[2017-07-20] MEDS: HABITROL TD SCH (10:00)
[2017-07-20] MEDS: HEPARIN SUB-Q SCH ×2 (10:00→21:41)
[2017-07-20] MEDS: SODIUM CHLORIDE FLUSH SYRINGE 10 ML IV SCH ×2 (10:06→21:37)
--- NOTE | 2017-07-20 14:32 | Progress Note ---
Assessment and Plan Assessment: 1) Severe sepsis: better. Etiology most likely surgical wound infection +/- intra-abdominal abscess +/- E coli bacteremia. 2) E coli bacteremia: from surgical site infection -Blood cx 5/3 E coli -Repeat blood cx no growth so far -CRP=19 3) Surgical wound infection ?dehiscence ? leak with intra-abdominal abscess vs. collection -Wound cx 5/3 E coli and MDR Enterobacter -Ct abd showed continued or recurrent large right inguinal canal hernia extending into scrotum and possible large pelvic abscess. -Fistulogram showed positive sinus tract communicating with blind end presumedly a collection. 4) LEIGHA - better 5) Elevated ELFs - likely from sepsis 6) Recent small bowel gangrene secondary to incarcerated inguinal hernia -Status post bowel resection on 06/30 Plan: -continue meropenem D8/14 -contact isolation Discussed with Dr Rivera Thank you for your consultation, will follow up with you. Johana Mcqueen MD Infectious Diseases Specialist [facility] [phone] O [phone] Subjective Date of service: 07/20/17 Principal diagnosis: Severe Sepsis; Intra-Abdominal Abscess; Gram negative bacteremia Interval history: Feels ok. No fever. reports leakage is better Microbiology: Blood cultures: / E coli 5/6 neg Urine cultures: 07/08 <10K Respiratory cultures: Wound cultures: /3 E coli and MDR Enterobacter Stool cultures: Other: Current Antimicrobials: meropenem 07/12 Previous Antimicrobials: Flagyl / Vancomycin / Cefepime / Objective - Exam Narrative Exam: General appearance: Alert in NAD, conversant Eyes: anicteric sclerae, moist conjunctivae; no lid-lag; PERRLA HENT: Atraumatic; oropharynx clear poor dentition Neck: Trachea midline; supple, no thyromegaly or lymphadenopathy Lungs: CTA, with normal respiratory effort and no intercostal retractions CV: RRR, no murmurs Abdomen: Soft, +midline wound +right groin wound upper portion open with purulence and inferior portion covered with ostomy bag still green leakage Extremities: No peripheral edema or extremity lymphadenopathy Skin: Normal temperature, turgor and texture; no rash, ulcers or subcutaneous nodules Psych: Appropriate affect, alert and oriented to person, place and time. Neuro: alert and oriented x 3. Moving all extermities Lines: - Constitutional Vitals: Vital Signs Temp Pulse Resp BP Pulse Ox 98.3 F 85 18 114/63 95 07/20/17 11:55 07/20/17 11:55 07/20/17 11:55 07/20/17 11:55 07/20/17 11:55 Temperature -Last 24 Hours Temperature 98.3 F Temperature 99.6 F Temperature 98.6 F Temperature 98.8 F Temperature 98.7 F - Labs CBC & Chem 7: 07/18/17 05:37 07/20/17 07:06 Labs: Abnormal lab results 07/19/17 07/20/17 07/20/17 Range/Units 22:21 06:21 07:06 Sodium 136 L (137-145) mmol/L Creatinine 0.5 L (0.8-1.5) mg/dL POC Glucose 135 H 133 H (70-105) Albumin 3.0 L (3.9-5) g/dL 07/20/17 Range/Units 12:04 Sodium (137-145) mmol/L Creatinine (0.8-1.5) mg/dL POC Glucose 145 H (70-105) Albumin (3.9-5) g/dL
--- NOTE | 2017-07-20 15:50 | Progress Note ---
Subjective Patient Reports: Positive: feels better, pain is less, flatus, bowel movement Narrative: doing fine , drainage much less On TPN will cont same kub in AM Objective Vital Signs - 12hr 07/20/17 07/20/17 07/20/17 04:54 05:04 05:24 Temperature 98.6 F Pulse Rate 83 Respiratory 16 17 17 Rate Blood Pressure Blood Pressure 99/56 [Right] O2 Sat by Pulse 96 Oximetry 07/20/17 07/20/17 07:58 11:55 Temperature 99.6 F 98.3 F Pulse Rate 85 85 Respiratory 18 18 Rate Blood Pressure 98/56 114/63 Blood Pressure [Right] O2 Sat by Pulse 98 95 Oximetry - Labs 07/18/17 05:37 07/20/17 07:06 Diabetes panel 07/20/17 Range/Units 07:06 Sodium 136 L (137-145) mmol/L Potassium 4.3 (3.6-5.0) mmol/L Chloride 100.4 (98-107) mmol/L Carbon Dioxide 27 (22-30) mmol/L BUN 17 (9-20) mg/dL Creatinine 0.5 L (0.8-1.5) mg/dL Glucose 100 (75-100) mg/dL Calcium 8.4 (8.4-10.2) mg/dL AST 18 (5-40) units/L ALT 19 (7-56) units/L Alkaline Phosphatase 106 (35-129) units/L Total Protein 6.7 (6.3-8.2) g/dL Albumin 3.0 L (3.9-5) g/dL Calcium panel 07/20/17 07/20/17 Range/Units 07:06 07:06 Calcium 8.4 (8.4-10.2) mg/dL Phosphorus 2.50 (2.5-4.5) mg/dL Albumin 3.0 L (3.9-5) g/dL Pituitary panel 07/20/17 Range/Units 07:06 Sodium 136 L (137-145) mmol/L Potassium 4.3 (3.6-5.0) mmol/L Chloride 100.4 (98-107) mmol/L Carbon Dioxide 27 (22-30) mmol/L BUN 17 (9-20) mg/dL Creatinine 0.5 L (0.8-1.5) mg/dL Glucose 100 (75-100) mg/dL Calcium 8.4 (8.4-10.2) mg/dL Adrenal panel 07/20/17 Range/Units 07:06 Sodium 136 L (137-145) mmol/L Potassium 4.3 (3.6-5.0) mmol/L Chloride 100.4 (98-107) mmol/L Carbon Dioxide 27 (22-30) mmol/L BUN 17 (9-20) mg/dL Creatinine 0.5 L (0.8-1.5) mg/dL Glucose 100 (75-100) mg/dL Calcium 8.4 (8.4-10.2) mg/dL Total Bilirubin 0.20 (0.1-1.2) mg/dL AST 18 (5-40) units/L ALT 19 (7-56) units/L Alkaline Phosphatase 106 (35-129) units/L Total Protein 6.7 (6.3-8.2) g/dL Albumin 3.0 L (3.9-5) g/dL
[2017-07-20] MEDS ORDERED: TPN ADULT 2,016 ML IV SCH (20:00)
[2017-07-21] MEDS: MORPHINE IV PRN ×2 (03:43→15:29)
[2017-07-21 05:12] LABS: BUN/Creatinine Ratio 32; Blood Urea Nitrogen 16 mg/dL (9-20); Calcium 8.2 mg/dL (8.4-10.2); Hemolysis Index 4
[2017-07-21] MEDS: MERREM 1,000 MG in NACL 0.9% 100 ML IV SCH ×3 (06:07→22:40)
--- NOTE | 2017-07-21 07:41 | Progress Note ---
Assessment and Plan Assessment and plan: Pelvic abscess and wound dehiscence s/p recent surgery on last admission(06/30) Continue Merrem. Vancomycin discontinued Dr. Lopez following Conservative management for now Fistulogram obtained and showed sinus tract draining intra-abdominal collection Patient also placed on TPN Severe sepsis secondary to the pelvic abscess and bacteremia patient placed on sepsis protocol wound Culture growing Escherichia coli and MDR Enterobacter, blood cx positive for E. coli ID on board, Continue meropenem Hypotension secondary to sepsis Now resolved, BP stable. Continue iv fluids Recurrent right inguinal hernia Conservative management for now Transaminitis likely secondary to sepsis, Now resolved Will continue to monitor his liver function test levels Acute kidney injury from severe sepsis LEIGHA now resolved, Cr 0.7 today Anemia Will monitor his H/H and transfuse if hgb < 7 Prophylaxis DVT prophylaxis with Heparin,SCD GI prophylaxis with Protonix Full code status History Interval history: Patient seen and examined in no acute distress. Still with abdominal pain. Hospitalist Physical - Physical exam Narrative exam: General:Not in acute distress, lying in bed, HEENT:Normocephalic, atraumatic Neck:supple,no JVD Lungs: Clear to auscultation, no rales, no wheeze Heart:S1 and S2 regular, no murmurs, rubs or gallop Abd: soft, dressing over abdominal wound, drainage, bowel sounds present Ext:no edema, no clubbing or cyanosis Neuro:Awake,alert,oriented x 3, moves all extremities, Psych:normal mood - Constitutional Vitals: Temp Pulse Resp BP Pulse Ox 98.7 F 95 H 18 104/51 98 07/21/17 04:46 07/21/17 04:37 07/21/17 04:37 07/21/17 04:37 07/21/17 04:37 General appearance: Present: other (ill looking) Results - Labs CBC & Chem 7: 07/18/17 05:37 07/21/17 04:29 Labs: Laboratory Last Values WBC 8.9 K/mm3 (4.5-11.0) 07/18/17 05:37 RBC 2.74 M/mm3 (3.65-5.03) L 07/18/17 05:37 Hgb 8.8 gm/dl (11.8-15.2) L 07/18/17 05:37 Hct 25.5 % (35.5-45.6) L 07/18/17 05:37 MCV 93 fl (84-94) 07/18/17 05:37 MCH 32 pg (28-32) 07/18/17 05:37 MCHC 35 % (32-34) H 07/18/17 05:37 RDW 14.9 % (13.2-15.2) 07/18/17 05:37 Plt Count 457 K/mm3 (140-440) H 07/18/17 05:37 Lymph % (Auto) 12.6 % (13.4-35.0) L 07/18/17 05:37 [place] % (Auto) 8.5 % (0.0-7.3) H 07/18/17 05:37 Eos % (Auto) 2.0 % (0.0-4.3) 07/18/17 05:37 Baso % (Auto) 0.9 % (0.0-1.8) 07/18/17 05:37 Lymph # 1.1 K/mm3 (1.2-5.4) L 07/18/17 05:37 [place] # 0.8 K/mm3 (0.0-0.8) 07/18/17 05:37 Eos # 0.2 K/mm3 (0.0-0.4) 07/18/17 05:37 Baso # 0.1 K/mm3 (0.0-0.1) 07/18/17 05:37 Add Manual Diff Complete 07/10/17 04:16 Total Counted 100 07/10/17 04:16 Seg Neutrophils % 76.0 % (40.0-70.0) H 07/18/17 05:37 Seg Neuts % (Manual) 93.0 % (40.0-70.0) H 07/10/17 04:16 Band Neutrophils % 1.0 % 07/10/17 04:16 Lymphocytes % (Manual) 3.0 % (13.4-35.0) L 07/10/17 04:16 Reactive Lymphs % (Man) 0 % 07/10/17 04:16 Monocytes % (Manual) 3.0 % (0.0-7.3) 07/10/17 04:16 Eosinophils % (Manual) 0 % (0.0-4.3) 07/10/17 04:16 Basophils % (Manual) 0 % (0.0-1.8) 07/10/17 04:16 Metamyelocytes % 0 % 07/10/17 04:16 Myelocytes % 0 % 07/10/17 04:16 Promyelocytes % 0 % 07/10/17 04:16 Blast Cells % 0 % 07/10/17 04:16 Nucleated RBC % Not Reportable 07/10/17 04:16 Seg Neutrophils # 6.8 K/mm3 (1.8-7.7) 07/18/17 05:37 Seg Neutrophils # Man 24.9 K/mm3 (1.8-7.7) H 07/10/17 04:16 Band Neutrophils # 0.3 K/mm3 07/10/17 04:16 Lymphocytes # (Manual) 0.8 K/mm3 (1.2-5.4) L 07/10/17 04:16 Abs React Lymphs (Man) 0.0 K/mm3 07/10/17 04:16 Monocytes # (Manual) 0.8 K/mm3 (0.0-0.8) 07/10/17 04:16 Eosinophils # (Manual) 0.0 K/mm3 (0.0-0.4) 07/10/17 04:16 Basophils # (Manual) 0.0 K/mm3 (0.0-0.1) 07/10/17 04:16 Metamyelocytes # 0.0 K/mm3 07/10/17 04:16 Myelocytes # 0.0 K/mm3 07/10/17 04:16 Promyelocytes # 0.0 K/mm3 07/10/17 04:16 Blast Cells # 0.0 K/mm3 07/10/17 04:16 WBC Morphology Not Reportable 07/10/17 04:16 Hypersegmented Neuts Not Reportable 07/10/17 04:16 Hyposegmented Neuts Not Reportable 07/10/17 04:16 Hypogranular Neuts Not Reportable 07/10/17 04:16 Smudge Cells Not Reportable 07/10/17 04:16 Toxic Granulation Not Reportable 07/10/17 04:16 Toxic Vacuolation Not Reportable 07/10/17 04:16 Dohle Bodies Not Reportable 07/10/17 04:16 Pelger-Huet Anomaly Not Reportable 07/10/17 04:16 Winter Rods Not Reportable 07/10/17 04:16 Platelet Estimate Appears normal 07/10/17 04:16 Clumped Platelets Not Reportable 07/10/17 04:16 Plt Clumps, EDTA Not Reportable 07/10/17 04:16 Large Platelets Not Reportable 07/10/17 04:16 Giant Platelets Not Reportable 07/10/17 04:16 Platelet Satelliting Not Reportable 07/10/17 04:16 Plt Morphology Comment Not Reportable 07/10/17 04:16 RBC Morphology Not Reportable 07/10/17 04:16 Dimorphic RBCs Not Reportable 07/10/17 04:16 Polychromasia Not Reportable 07/10/17 04:16 Hypochromasia 1+ 07/10/17 04:16 Poikilocytosis Not Reportable 07/10/17 04:16 Anisocytosis 1+ 07/10/17 04:16 Microcytosis Not Reportable 07/10/17 04:16 Macrocytosis Not Reportable 07/10/17 04:16 Spherocytes Not Reportable 07/10/17 04:16 Pappenheimer Bodies Not Reportable 07/10/17 04:16 Sickle Cells Not Reportable 07/10/17 04:16 Target Cells Not Reportable 07/10/17 04:16 Tear Drop Cells Not Reportable 07/10/17 04:16 Ovalocytes 1+ 07/10/17 04:16 Helmet Cells Not Reportable 07/10/17 04:16 [place] Bodies Not Reportable 07/10/17 04:16 [place] Rings Not Reportable 07/10/17 04:16 Rigoberto Cells Not Reportable 07/10/17 04:16 Bite Cells Not Reportable 07/10/17 04:16 Crenated Cell Not Reportable 07/10/17 04:16 Elliptocytes Not Reportable 07/10/17 04:16 Acanthocytes (Spur) Not Reportable 07/10/17 04:16 Rouleaux Not Reportable 07/10/17 04:16 Hemoglobin C Crystals Not Reportable 07/10/17 04:16 Schistocytes Not Reportable 07/10/17 04:16 Malaria parasites Not Reportable 07/10/17 04:16 Erasmo Bodies Not Reportable 07/10/17 04:16 Hem Pathologist Commnt No 07/10/17 04:16 PT 16.9 Sec. (12.2-14.9) H 07/08/17 18:05 INR 1.30 (0.87-1.13) H 07/08/17 18:05 VBG pH 7.443 (7.320-7.420) H 07/08/17 18:05 Sodium 137 mmol/L (137-145) 07/21/17 04:29 Potassium 4.0 mmol/L (3.6-5.0) 07/21/17 04:29 Chloride 100.4 mmol/L (98-107) 07/21/17 04:29 Carbon Dioxide 25 mmol/L (22-30) 07/21/17 04:29 Anion Gap 16 mmol/L 07/21/17 04:29 BUN 16 mg/dL (9-20) 07/21/17 04:29 Creatinine 0.5 mg/dL (0.8-1.5) L 07/21/17 04:29 Estimated GFR > 60 ml/min 07/21/17 04:29 BUN/Creatinine Ratio 32 % 07/21/17 04:29 Glucose 100 mg/dL (75-100) 07/20/17 07:06 POC Glucose 150 (70-105) H 07/21/17 05:48 Lactic Acid 1.10 mmol/L (0.7-2.0) 07/09/17 08:06 Calcium 8.2 mg/dL (8.4-10.2) L 07/21/17 04:29 Phosphorus 2.60 mg/dL (2.5-4.5) 07/21/17 04:29 Magnesium 1.80 mg/dL (1.7-2.3) 07/21/17 04:29 Total Bilirubin 0.20 mg/dL (0.1-1.2) 07/20/17 07:06 AST 18 units/L (5-40) 07/20/17 07:06 ALT 19 units/L (7-56) 07/20/17 07:06 Alkaline Phosphatase 106 units/L (35-129) 07/20/17 07:06 C-Reactive Protein 19.80 mg/dL (0.00-1.30) H 07/11/17 05:41 Total Protein 6.7 g/dL (6.3-8.2) 07/20/17 07:06 Albumin 3.0 g/dL (3.9-5) L 07/20/17 07:06 Albumin/Globulin Ratio 0.8 % 07/20/17 07:06 Triglycerides 70 mg/dL (2-149) 07/14/17 05:43 Urine Color Yellow (Yellow) 07/08/17 16:30 Urine Turbidity Clear (Clear) 07/08/17 16:30 Urine pH 5.0 (5.0-7.0) 07/08/17 16:30 Ur Specific [place] 1.027 (1.003-1.030) 07/08/17 16:30 Urine Protein 30 mg/dl mg/dL (Negative) 07/08/17 16:30 Urine Glucose (UA) Neg mg/dL (Negative) 07/08/17 16:30 Urine Ketones Tr mg/dL (Negative) 07/08/17 16:30 Urine Blood Mod (Negative) 07/08/17 16:30 Urine Nitrite Neg (Negative) 07/08/17 16:30 Urine Bilirubin Neg (Negative) 07/08/17 16:30 Urine Urobilinogen < 2.0 mg/dL (<2.0) 07/08/17 16:30 Ur Leukocyte Esterase Tr (Negative) 07/08/17 16:30 Urine WBC (Auto) 8.0 /HPF (0.0-6.0) H 07/08/17 16:30 Urine RBC (Auto) 2.0 /HPF (0.0-6.0) 07/08/17 16:30 U Epithel Cells (Auto) < 1.0 /HPF (0-13.0) 07/08/17 16:30 Urine Mucus Few /HPF 07/08/17 16:30 Urine Yeast (Budding) 1+ /HPF 07/08/17 16:30 Blood Type O POSITIVE 07/08/17 23:29 Antibody Screen Negative 07/08/17 23:29
[2017-07-21] MEDS: HABITROL TD SCH (11:01)
[2017-07-21] MEDS: PEPCID IV SCH ×2 (11:01→22:44)
[2017-07-21] MEDS: HEPARIN SUB-Q SCH ×2 (11:02→22:44)
[2017-07-21] MEDS: SODIUM CHLORIDE FLUSH SYRINGE 10 ML IV SCH ×2 (11:03→22:47)
--- NOTE | 2017-07-21 13:38 | Progress Note ---
Assessment and Plan Assessment and plan: Patient is a 61 year old -[place] male who presented to the ED on account of foul smelling drainage from his surgical wound on his abdomen. The patient was discharged from the hospital yesterday after undergoing open laparotomy for a right inguinal hernia with small bowel obstruction. At the time of surgery, it was found that the patient had a gangrenous small bowel, for which he underwent partial small bowel resection. He has associated generalized abdominal pain and generalized weakness. He denies nausea, vomiting , constipation or diarrhea. No fever, chills, chest pain, shortness of breath or palpitations. Pelvic abscess and wound dehiscence s/p recent surgery on last admission(06/30) Continue Merrem. Vancomycin discontinued Dr. Lopez following Conservative management for now Fistulogram obtained and showed sinus tract draining intra-abdominal collection Patient also placed on TPN Mental prophylaxis. Await surgery for possible discharge. KUB pending Severe sepsis secondary to the pelvic abscess and bacteremia patient placed on sepsis protocol wound Culture growing Escherichia coli and MDR Enterobacter, blood cx positive for E. coli ID on board, Continue meropenem Hypotension secondary to sepsis Now resolved, BP stable. Continue iv fluids Recurrent right inguinal hernia Conservative management for now Transaminitis likely secondary to sepsis, Now resolved Will continue to monitor his liver function test levels Acute kidney injury from severe sepsis LEIGHA now resolved, Cr 0.7 today Anemia Will monitor his H/H and transfuse if hgb < 7 Prophylaxis DVT prophylaxis with Heparin,SCD GI prophylaxis with Protonix Full code status History Interval history: Patient seen and examined in no acute distress. abdominal pain improved, flatus , colostomy with noted output Hospitalist Physical - Physical exam Narrative exam: VITAL SIGNS: Reviewed. GENERAL: The patient appeared chronically ill appearing. Vital signs as documented. HEAD: No signs of head trauma. EYES: Pupils are equal. Extraocular motions intact. EARS: Hearing grossly intact. MOUTH: Oropharynx is normal. NECK: No adenopathy, no JVD. CHEST: Chest with clear breath sounds bilaterally. No wheezes, rales, or rhonchi. CARDIAC: Regular rate and rhythm. S1 and S2, without murmurs, gallops, or rubs. VASCULAR: No Edema. Peripheral pulses normal and equal in all extremities. ABDOMEN: Soft, [address] Drainage noted.. Dressing over wounds noted. No open drainage noted over. No sign of distention. No rebound or guarding, and no masses palpated. Bowel Sounds normal. MUSCULOSKELETAL: Good range of motion of all major joints. Extremities without clubbing, cyanosis or edema. NEUROLOGIC EXAM: Alert and oriented x 3. No focal sensory or strength deficits. Speech normal. Follows commands. PSYCHIATRIC: Mood normal. SKIN: No rash or lesions. - Constitutional Vitals: Temp Pulse Resp BP Pulse Ox 98.4 F 82 18 105/58 97 07/21/17 12:00 07/21/17 12:00 07/21/17 12:00 07/21/17 12:00 07/21/17 12:00 General appearance: Present: other (ill looking) Results - Labs CBC & Chem 7: 07/18/17 05:37 07/21/17 04:29 Labs: Laboratory Last Values WBC 8.9 K/mm3 (4.5-11.0) 07/18/17 05:37 RBC 2.74 M/mm3 (3.65-5.03) L 07/18/17 05:37 Hgb 8.8 gm/dl (11.8-15.2) L 07/18/17 05:37 Hct 25.5 % (35.5-45.6) L 07/18/17 05:37 MCV 93 fl (84-94) 07/18/17 05:37 MCH 32 pg (28-32) 07/18/17 05:37 MCHC 35 % (32-34) H 07/18/17 05:37 RDW 14.9 % (13.2-15.2) 07/18/17 05:37 Plt Count 457 K/mm3 (140-440) H 07/18/17 05:37 Lymph % (Auto) 12.6 % (13.4-35.0) L 07/18/17 05:37 [place] % (Auto) 8.5 % (0.0-7.3) H 07/18/17 05:37 Eos % (Auto) 2.0 % (0.0-4.3) 07/18/17 05:37 Baso % (Auto) 0.9 % (0.0-1.8) 07/18/17 05:37 Lymph # 1.1 K/mm3 (1.2-5.4) L 07/18/17 05:37 [place] # 0.8 K/mm3 (0.0-0.8) 07/18/17 05:37 Eos # 0.2 K/mm3 (0.0-0.4) 07/18/17 05:37 Baso # 0.1 K/mm3 (0.0-0.1) 07/18/17 05:37 Add Manual Diff Complete 07/10/17 04:16 Total Counted 100 07/10/17 04:16 Seg Neutrophils % 76.0 % (40.0-70.0) H 07/18/17 05:37 Seg Neuts % (Manual) 93.0 % (40.0-70.0) H 07/10/17 04:16 Band Neutrophils % 1.0 % 07/10/17 04:16 Lymphocytes % (Manual) 3.0 % (13.4-35.0) L 07/10/17 04:16 Reactive Lymphs % (Man) 0 % 07/10/17 04:16 Monocytes % (Manual) 3.0 % (0.0-7.3) 07/10/17 04:16 Eosinophils % (Manual) 0 % (0.0-4.3) 07/10/17 04:16 Basophils % (Manual) 0 % (0.0-1.8) 07/10/17 04:16 Metamyelocytes % 0 % 07/10/17 04:16 Myelocytes % 0 % 07/10/17 04:16 Promyelocytes % 0 % 07/10/17 04:16 Blast Cells % 0 % 07/10/17 04:16 Nucleated RBC % Not Reportable 07/10/17 04:16 Seg Neutrophils # 6.8 K/mm3 (1.8-7.7) 07/18/17 05:37 Seg Neutrophils # Man 24.9 K/mm3 (1.8-7.7) H 07/10/17 04:16 Band Neutrophils # 0.3 K/mm3 07/10/17 04:16 Lymphocytes # (Manual) 0.8 K/mm3 (1.2-5.4) L 07/10/17 04:16 Abs React Lymphs (Man) 0.0 K/mm3 07/10/17 04:16 Monocytes # (Manual) 0.8 K/mm3 (0.0-0.8) 07/10/17 04:16 Eosinophils # (Manual) 0.0 K/mm3 (0.0-0.4) 07/10/17 04:16 Basophils # (Manual) 0.0 K/mm3 (0.0-0.1) 07/10/17 04:16 Metamyelocytes # 0.0 K/mm3 07/10/17 04:16 Myelocytes # 0.0 K/mm3 07/10/17 04:16 Promyelocytes # 0.0 K/mm3 07/10/17 04:16 Blast Cells # 0.0 K/mm3 07/10/17 04:16 WBC Morphology Not Reportable 07/10/17 04:16 Hypersegmented Neuts Not Reportable 07/10/17 04:16 Hyposegmented Neuts Not Reportable 07/10/17 04:16 Hypogranular Neuts Not Reportable 07/10/17 04:16 Smudge Cells Not Reportable 07/10/17 04:16 Toxic Granulation Not Reportable 07/10/17 04:16 Toxic Vacuolation Not Reportable 07/10/17 04:16 Dohle Bodies Not Reportable 07/10/17 04:16 Pelger-Huet Anomaly Not Reportable 07/10/17 04:16 Winter Rods Not Reportable 07/10/17 04:16 Platelet Estimate Appears normal 07/10/17 04:16 Clumped Platelets Not Reportable 07/10/17 04:16 Plt Clumps, EDTA Not Reportable 07/10/17 04:16 Large Platelets Not Reportable 07/10/17 04:16 Giant Platelets Not Reportable 07/10/17 04:16 Platelet Satelliting Not Reportable 07/10/17 04:16 Plt Morphology Comment Not Reportable 07/10/17 04:16 RBC Morphology Not Reportable 07/10/17 04:16 Dimorphic RBCs Not Reportable 07/10/17 04:16 Polychromasia Not Reportable 07/10/17 04:16 Hypochromasia 1+ 07/10/17 04:16 Poikilocytosis Not Reportable 07/10/17 04:16 Anisocytosis 1+ 07/10/17 04:16 Microcytosis Not Reportable 07/10/17 04:16 Macrocytosis Not Reportable 07/10/17 04:16 Spherocytes Not Reportable 07/10/17 04:16 Pappenheimer Bodies Not Reportable 07/10/17 04:16 Sickle Cells Not Reportable 07/10/17 04:16 Target Cells Not Reportable 07/10/17 04:16 Tear Drop Cells Not Reportable 07/10/17 04:16 Ovalocytes 1+ 07/10/17 04:16 Helmet Cells Not Reportable 07/10/17 04:16 Krishnan-[place] Bodies Not Reportable 07/10/17 04:16 [place] Rings Not Reportable 07/10/17 04:16 Rigoberto Cells Not Reportable 07/10/17 04:16 Bite Cells Not Reportable 07/10/17 04:16 Crenated Cell Not Reportable 07/10/17 04:16 Elliptocytes Not Reportable 07/10/17 04:16 Acanthocytes (Spur) Not Reportable 07/10/17 04:16 Rouleaux Not Reportable 07/10/17 04:16 Hemoglobin C Crystals Not Reportable 07/10/17 04:16 Schistocytes Not Reportable 07/10/17 04:16 Malaria parasites Not Reportable 07/10/17 04:16 Erasmo Bodies Not Reportable 07/10/17 04:16 Hem Pathologist Commnt No 07/10/17 04:16 PT 16.9 Sec. (12.2-14.9) H 07/08/17 18:05 INR 1.30 (0.87-1.13) H 07/08/17 18:05 VBG pH 7.443 (7.320-7.420) H 07/08/17 18:05 Sodium 137 mmol/L (137-145) 07/21/17 04:29 Potassium 4.0 mmol/L (3.6-5.0) 07/21/17 04:29 Chloride 100.4 mmol/L (98-107) 07/21/17 04:29 Carbon Dioxide 25 mmol/L (22-30) 07/21/17 04:29 Anion Gap 16 mmol/L 07/21/17 04:29 BUN 16 mg/dL (9-20) 07/21/17 04:29 Creatinine 0.5 mg/dL (0.8-1.5) L 07/21/17 04:29 Estimated GFR > 60 ml/min 07/21/17 04:29 BUN/Creatinine Ratio 32 % 07/21/17 04:29 Glucose 100 mg/dL (75-100) 07/20/17 07:06 POC Glucose 131 (70-105) H 07/21/17 11:48 Lactic Acid 1.10 mmol/L (0.7-2.0) 07/09/17 08:06 Calcium 8.2 mg/dL (8.4-10.2) L 07/21/17 04:29 Phosphorus 2.60 mg/dL (2.5-4.5) 07/21/17 04:29 Magnesium 1.80 mg/dL (1.7-2.3) 07/21/17 04:29 Total Bilirubin 0.20 mg/dL (0.1-1.2) 07/20/17 07:06 AST 18 units/L (5-40) 07/20/17 07:06 ALT 19 units/L (7-56) 07/20/17 07:06 Alkaline Phosphatase 106 units/L (35-129) 07/20/17 07:06 C-Reactive Protein 19.80 mg/dL (0.00-1.30) H 07/11/17 05:41 Total Protein 6.7 g/dL (6.3-8.2) 07/20/17 07:06 Albumin 3.0 g/dL (3.9-5) L 07/20/17 07:06 Albumin/Globulin Ratio 0.8 % 07/20/17 07:06 Triglycerides 70 mg/dL (2-149) 07/14/17 05:43 Urine Color Yellow (Yellow) 07/08/17 16:30 Urine Turbidity Clear (Clear) 07/08/17 16:30 Urine pH 5.0 (5.0-7.0) 07/08/17 16:30 Ur Specific [place] 1.027 (1.003-1.030) 07/08/17 16:30 Urine Protein 30 mg/dl mg/dL (Negative) 07/08/17 16:30 Urine Glucose (UA) Neg mg/dL (Negative) 07/08/17 16:30 Urine Ketones Tr mg/dL (Negative) 07/08/17 16:30 Urine Blood Mod (Negative) 07/08/17 16:30 Urine Nitrite Neg (Negative) 07/08/17 16:30 Urine Bilirubin Neg (Negative) 07/08/17 16:30 Urine Urobilinogen < 2.0 mg/dL (<2.0) 07/08/17 16:30 Ur Leukocyte Esterase Tr (Negative) 07/08/17 16:30 Urine WBC (Auto) 8.0 /HPF (0.0-6.0) H 07/08/17 16:30 Urine RBC (Auto) 2.0 /HPF (0.0-6.0) 07/08/17 16:30 U Epithel Cells (Auto) < 1.0 /HPF (0-13.0) 07/08/17 16:30 Urine Mucus Few /HPF 07/08/17 16:30 Urine Yeast (Budding) 1+ /HPF 07/08/17 16:30 Blood Type O POSITIVE 07/08/17 23:29 Antibody Screen Negative 07/08/17 23:29
--- NOTE | 2017-07-21 15:39 | Progress Note ---
Subjective Patient Reports: Positive: feels better, pain is less Narrative: doing OK drainage nil n npo on ice chips will con onservation Objective Vital Signs - 12hr 07/21/17 07/21/17 07/21/17 04:37 04:46 07:33 Temperature 98.7 F 99.1 F Pulse Rate 95 H 92 H Respiratory 18 18 Rate Blood Pressure 104/51 94/59 Blood Pressure [Right] O2 Sat by Pulse 98 98 Oximetry 07/21/17 12:00 Temperature 98.4 F Pulse Rate 82 Respiratory 18 Rate Blood Pressure Blood Pressure 105/58 [Right] O2 Sat by Pulse 97 Oximetry - Labs 07/18/17 05:37 07/21/17 04:29 Diabetes panel 07/21/17 Range/Units 04:29 Sodium 137 (137-145) mmol/L Potassium 4.0 (3.6-5.0) mmol/L Chloride 100.4 (98-107) mmol/L Carbon Dioxide 25 (22-30) mmol/L BUN 16 (9-20) mg/dL Creatinine 0.5 L (0.8-1.5) mg/dL Glucose 145 H (75-100) mg/dL Calcium 8.2 L (8.4-10.2) mg/dL Calcium panel 07/21/17 Range/Units 04:29 Calcium 8.2 L (8.4-10.2) mg/dL Phosphorus 2.60 (2.5-4.5) mg/dL Pituitary panel 07/21/17 Range/Units 04:29 Sodium 137 (137-145) mmol/L Potassium 4.0 (3.6-5.0) mmol/L Chloride 100.4 (98-107) mmol/L Carbon Dioxide 25 (22-30) mmol/L BUN 16 (9-20) mg/dL Creatinine 0.5 L (0.8-1.5) mg/dL Glucose 145 H (75-100) mg/dL Calcium 8.2 L (8.4-10.2) mg/dL Adrenal panel 07/21/17 Range/Units 04:29 Sodium 137 (137-145) mmol/L Potassium 4.0 (3.6-5.0) mmol/L Chloride 100.4 (98-107) mmol/L Carbon Dioxide 25 (22-30) mmol/L BUN 16 (9-20) mg/dL Creatinine 0.5 L (0.8-1.5) mg/dL Glucose 145 H (75-100) mg/dL Calcium 8.2 L (8.4-10.2) mg/dL
--- NOTE | 2017-07-21 17:01 | XRay Report ---
FINAL REPORT EXAM: XR ABDOMEN 1V AP HISTORY: abdominal pain TECHNIQUE: Supine abdomen PRIORS: Comparison is dated July 13, 2017 FINDINGS: There is continued disc moderate small-bowel distention. Colon is nondistended there is some gas within the left colon. No signs for free air on the view obtained. IMPRESSION: Persistent moderate small-bowel distention most likely reflecting postoperative ileus. Partial obstruction cannot be excluded and continued followup is recommended
[2017-07-21] MEDS ORDERED: INTRALIPID 20% 250 ML IV SCH (20:00)
[2017-07-21] MEDS ORDERED: TPN ADULT 2,016 ML IV SCH (20:00)
[2017-07-22] MEDS: MORPHINE IV PRN ×7 (02:30→21:31)
[2017-07-22] MEDS: MERREM 1,000 MG in NACL 0.9% 100 ML IV SCH ×3 (06:09→21:29)
[2017-07-22 06:37] LABS: BUN/Creatinine Ratio 25; Blood Urea Nitrogen 15 mg/dL (9-20); Calcium 8.4 mg/dL (8.4-10.2); Hemolysis Index 0
[2017-07-22] MEDS: HEPARIN SUB-Q SCH ×2 (09:04→21:31)
[2017-07-22] MEDS: PEPCID IV SCH ×2 (09:04→21:31)
[2017-07-22] MEDS: HABITROL TD SCH (09:05)
[2017-07-22] MEDS: SODIUM CHLORIDE FLUSH SYRINGE 10 ML IV SCH ×2 (09:06→21:36)
[2017-07-22] MEDS ORDERED: FLEET PR PRN (15:17)
--- NOTE | 2017-07-22 15:20 | Progress Note ---
Subjective Patient Reports: Positive: feels better, pain is less, flatus, no bowel movement Narrative: feels improving , abd soft passing flatus , no BM ,KUb Ileus will start Ice chips , clear liq in AM / Objective Vital Signs - 12hr 07/22/17 07/22/17 07/22/17 04:36 06:09 06:39 Temperature 99.5 F Pulse Rate 93 H Respiratory 20 16 17 Rate Blood Pressure 110/63 O2 Sat by Pulse 98 Oximetry 07/22/17 07/22/17 07/22/17 08:40 09:03 09:33 Temperature Pulse Rate 88 Respiratory 16 20 16 Rate Blood Pressure 103/58 O2 Sat by Pulse 98 Oximetry 07/22/17 07/22/17 07/22/17 12:23 12:53 12:58 Temperature 98.7 F Pulse Rate Respiratory 20 16 Rate Blood Pressure O2 Sat by Pulse Oximetry 07/22/17 14:48 Temperature Pulse Rate Respiratory 18 Rate Blood Pressure O2 Sat by Pulse Oximetry - Labs 07/18/17 05:37 07/22/17 05:45 Diabetes panel 07/22/17 Range/Units 05:45 Sodium 135 L (137-145) mmol/L Potassium 4.1 (3.6-5.0) mmol/L Chloride 99.4 (98-107) mmol/L Carbon Dioxide 29 (22-30) mmol/L BUN 15 (9-20) mg/dL Creatinine 0.6 L (0.8-1.5) mg/dL Glucose 93 (75-100) mg/dL Calcium 8.4 (8.4-10.2) mg/dL Calcium panel 07/22/17 Range/Units 05:45 Calcium 8.4 (8.4-10.2) mg/dL Phosphorus 2.60 (2.5-4.5) mg/dL Pituitary panel 07/22/17 Range/Units 05:45 Sodium 135 L (137-145) mmol/L Potassium 4.1 (3.6-5.0) mmol/L Chloride 99.4 (98-107) mmol/L Carbon Dioxide 29 (22-30) mmol/L BUN 15 (9-20) mg/dL Creatinine 0.6 L (0.8-1.5) mg/dL Glucose 93 (75-100) mg/dL Calcium 8.4 (8.4-10.2) mg/dL Adrenal panel 07/22/17 Range/Units 05:45 Sodium 135 L (137-145) mmol/L Potassium 4.1 (3.6-5.0) mmol/L Chloride 99.4 (98-107) mmol/L Carbon Dioxide 29 (22-30) mmol/L BUN 15 (9-20) mg/dL Creatinine 0.6 L (0.8-1.5) mg/dL Glucose 93 (75-100) mg/dL Calcium 8.4 (8.4-10.2) mg/dL
--- NOTE | 2017-07-22 15:53 | Progress Note ---
Assessment and Plan Assessment and plan: Patient is a 61 year old -[place]ian male who presented to the ED on account of foul smelling drainage from his surgical wound on his abdomen. The patient was discharged from the hospital yesterday after undergoing open laparotomy for a right inguinal hernia with small bowel obstruction. At the time of surgery, it was found that the patient had a gangrenous small bowel, for which he underwent partial small bowel resection. He has associated generalized abdominal pain and generalized weakness. He denies nausea, vomiting , constipation or diarrhea. No fever, chills, chest pain, shortness of breath or palpitations. Pelvic abscess and wound dehiscence s/p recent surgery on last admission(06/30) Continue Merrem. Vancomycin discontinued Dr. Lopez following Conservative management for now Fistulogram obtained and showed sinus tract draining intra-abdominal collection Patient also placed on TPN. Clear liquid to start in AM Mental prophylaxis. Await surgery for possible discharge. KUB pending Severe sepsis secondary to the pelvic abscess and bacteremia patient placed on sepsis protocol wound Culture growing Escherichia coli and MDR Enterobacter, blood cx positive for E. coli ID on board, Continue meropenem Hypotension secondary to sepsis Now resolved, BP stable. Continue iv fluids Recurrent right inguinal hernia Conservative management for now Transaminitis likely secondary to sepsis, Now resolved Will continue to monitor his liver function test levels Acute kidney injury from severe sepsis LEIGHA now resolved, Cr 0.7 today Anemia Will monitor his H/H and transfuse if hgb < 7 Prophylaxis DVT prophylaxis with Heparin,SCD GI prophylaxis with Protonix Full code status History Interval history: Patient seen and examined in no acute distress. abdominal pain improved, flatus , colostomy with noted output Hospitalist Physical - Physical exam Narrative exam: VITAL SIGNS: Reviewed. GENERAL: The patient appeared chronically ill appearing. Vital signs as documented. HEAD: No signs of head trauma. EYES: Pupils are equal. Extraocular motions intact. EARS: Hearing grossly intact. MOUTH: Oropharynx is normal. NECK: No adenopathy, no JVD. CHEST: Chest with clear breath sounds bilaterally. No wheezes, rales, or rhonchi. CARDIAC: Regular rate and rhythm. S1 and S2, without murmurs, gallops, or rubs. VASCULAR: No Edema. Peripheral pulses normal and equal in all extremities. ABDOMEN: Soft, [address] Drainage noted.. Dressing over wounds noted. No open drainage noted over. No sign of distention. No rebound or guarding, and no masses palpated. Bowel Sounds normal. MUSCULOSKELETAL: Good range of motion of all major joints. Extremities without clubbing, cyanosis or edema. NEUROLOGIC EXAM: Alert and oriented x 3. No focal sensory or strength deficits. Speech normal. Follows commands. PSYCHIATRIC: Mood normal. SKIN: No rash or lesions. - Constitutional Vitals: Temp Pulse Resp BP Pulse Ox 98.7 F 88 18 103/58 98 07/22/17 12:58 07/22/17 08:40 07/22/17 14:48 07/22/17 08:40 07/22/17 08:40 General appearance: Present: other (ill looking) Results - Labs CBC & Chem 7: 07/18/17 05:37 07/22/17 05:45 Labs: Laboratory Last Values WBC 8.9 K/mm3 (4.5-11.0) 07/18/17 05:37 RBC 2.74 M/mm3 (3.65-5.03) L 07/18/17 05:37 Hgb 8.8 gm/dl (11.8-15.2) L 07/18/17 05:37 Hct 25.5 % (35.5-45.6) L 07/18/17 05:37 MCV 93 fl (84-94) 07/18/17 05:37 MCH 32 pg (28-32) 07/18/17 05:37 MCHC 35 % (32-34) H 07/18/17 05:37 RDW 14.9 % (13.2-15.2) 07/18/17 05:37 Plt Count 457 K/mm3 (140-440) H 07/18/17 05:37 Lymph % (Auto) 12.6 % (13.4-35.0) L 07/18/17 05:37 [place] % (Auto) 8.5 % (0.0-7.3) H 07/18/17 05:37 Eos % (Auto) 2.0 % (0.0-4.3) 07/18/17 05:37 Baso % (Auto) 0.9 % (0.0-1.8) 07/18/17 05:37 Lymph # 1.1 K/mm3 (1.2-5.4) L 07/18/17 05:37 [place] # 0.8 K/mm3 (0.0-0.8) 07/18/17 05:37 Eos # 0.2 K/mm3 (0.0-0.4) 07/18/17 05:37 Baso # 0.1 K/mm3 (0.0-0.1) 07/18/17 05:37 Add Manual Diff Complete 07/10/17 04:16 Total Counted 100 07/10/17 04:16 Seg Neutrophils % 76.0 % (40.0-70.0) H 07/18/17 05:37 Seg Neuts % (Manual) 93.0 % (40.0-70.0) H 07/10/17 04:16 Band Neutrophils % 1.0 % 07/10/17 04:16 Lymphocytes % (Manual) 3.0 % (13.4-35.0) L 07/10/17 04:16 Reactive Lymphs % (Man) 0 % 07/10/17 04:16 Monocytes % (Manual) 3.0 % (0.0-7.3) 07/10/17 04:16 Eosinophils % (Manual) 0 % (0.0-4.3) 07/10/17 04:16 Basophils % (Manual) 0 % (0.0-1.8) 07/10/17 04:16 Metamyelocytes % 0 % 07/10/17 04:16 Myelocytes % 0 % 07/10/17 04:16 Promyelocytes % 0 % 07/10/17 04:16 Blast Cells % 0 % 07/10/17 04:16 Nucleated RBC % Not Reportable 07/10/17 04:16 Seg Neutrophils # 6.8 K/mm3 (1.8-7.7) 07/18/17 05:37 Seg Neutrophils # Man 24.9 K/mm3 (1.8-7.7) H 07/10/17 04:16 Band Neutrophils # 0.3 K/mm3 07/10/17 04:16 Lymphocytes # (Manual) 0.8 K/mm3 (1.2-5.4) L 07/10/17 04:16 Abs React Lymphs (Man) 0.0 K/mm3 07/10/17 04:16 Monocytes # (Manual) 0.8 K/mm3 (0.0-0.8) 07/10/17 04:16 Eosinophils # (Manual) 0.0 K/mm3 (0.0-0.4) 07/10/17 04:16 Basophils # (Manual) 0.0 K/mm3 (0.0-0.1) 07/10/17 04:16 Metamyelocytes # 0.0 K/mm3 07/10/17 04:16 Myelocytes # 0.0 K/mm3 07/10/17 04:16 Promyelocytes # 0.0 K/mm3 07/10/17 04:16 Blast Cells # 0.0 K/mm3 07/10/17 04:16 WBC Morphology Not Reportable 07/10/17 04:16 Hypersegmented Neuts Not Reportable 07/10/17 04:16 Hyposegmented Neuts Not Reportable 07/10/17 04:16 Hypogranular Neuts Not Reportable 07/10/17 04:16 Smudge Cells Not Reportable 07/10/17 04:16 Toxic Granulation Not Reportable 07/10/17 04:16 Toxic Vacuolation Not Reportable 07/10/17 04:16 Dohle Bodies Not Reportable 07/10/17 04:16 Pelger-Huet Anomaly Not Reportable 07/10/17 04:16 Winter Rods Not Reportable 07/10/17 04:16 Platelet Estimate Appears normal 07/10/17 04:16 Clumped Platelets Not Reportable 07/10/17 04:16 Plt Clumps, EDTA Not Reportable 07/10/17 04:16 Large Platelets Not Reportable 07/10/17 04:16 Giant Platelets Not Reportable 07/10/17 04:16 Platelet Satelliting Not Reportable 07/10/17 04:16 Plt Morphology Comment Not Reportable 07/10/17 04:16 RBC Morphology Not Reportable 07/10/17 04:16 Dimorphic RBCs Not Reportable 07/10/17 04:16 Polychromasia Not Reportable 07/10/17 04:16 Hypochromasia 1+ 07/10/17 04:16 Poikilocytosis Not Reportable 07/10/17 04:16 Anisocytosis 1+ 07/10/17 04:16 Microcytosis Not Reportable 07/10/17 04:16 Macrocytosis Not Reportable 07/10/17 04:16 Spherocytes Not Reportable 07/10/17 04:16 Pappenheimer Bodies Not Reportable 07/10/17 04:16 Sickle Cells Not Reportable 07/10/17 04:16 Target Cells Not Reportable 07/10/17 04:16 Tear Drop Cells Not Reportable 07/10/17 04:16 Ovalocytes 1+ 07/10/17 04:16 Helmet Cells Not Reportable 07/10/17 04:16 [place] Bodies Not Reportable 07/10/17 04:16 [place] Rings Not Reportable 07/10/17 04:16 [place] Cells Not Reportable 07/10/17 04:16 Bite Cells Not Reportable 07/10/17 04:16 Crenated Cell Not Reportable 07/10/17 04:16 Elliptocytes Not Reportable 07/10/17 04:16 Acanthocytes (Spur) Not Reportable 07/10/17 04:16 Rouleaux Not Reportable 07/10/17 04:16 Hemoglobin C Crystals Not Reportable 07/10/17 04:16 Schistocytes Not Reportable 07/10/17 04:16 Malaria parasites Not Reportable 07/10/17 04:16 Erasmo Bodies Not Reportable 07/10/17 04:16 Hem Pathologist Commnt No 07/10/17 04:16 PT 16.9 Sec. (12.2-14.9) H 07/08/17 18:05 INR 1.30 (0.87-1.13) H 07/08/17 18:05 VBG pH 7.443 (7.320-7.420) H 07/08/17 18:05 Sodium 135 mmol/L (137-145) L 07/22/17 05:45 Potassium 4.1 mmol/L (3.6-5.0) 07/22/17 05:45 Chloride 99.4 mmol/L (98-107) 07/22/17 05:45 Carbon Dioxide 29 mmol/L (22-30) 07/22/17 05:45 Anion Gap 11 mmol/L 07/22/17 05:45 BUN 15 mg/dL (9-20) 07/22/17 05:45 Creatinine 0.6 mg/dL (0.8-1.5) L 07/22/17 05:45 Estimated GFR > 60 ml/min 07/22/17 05:45 BUN/Creatinine Ratio 25 % 07/22/17 05:45 Glucose 93 mg/dL (75-100) 07/22/17 05:45 POC Glucose 133 (70-105) H 07/22/17 11:14 Lactic Acid 1.10 mmol/L (0.7-2.0) 07/09/17 08:06 Calcium 8.4 mg/dL (8.4-10.2) 07/22/17 05:45 Phosphorus 2.60 mg/dL (2.5-4.5) 07/22/17 05:45 Magnesium 1.80 mg/dL (1.7-2.3) 07/22/17 05:45 Total Bilirubin 0.20 mg/dL (0.1-1.2) 07/20/17 07:06 AST 18 units/L (5-40) 07/20/17 07:06 ALT 19 units/L (7-56) 07/20/17 07:06 Alkaline Phosphatase 106 units/L (35-129) 07/20/17 07:06 C-Reactive Protein 19.80 mg/dL (0.00-1.30) H 07/11/17 05:41 Total Protein 6.7 g/dL (6.3-8.2) 07/20/17 07:06 Albumin 3.0 g/dL (3.9-5) L 07/20/17 07:06 Albumin/Globulin Ratio 0.8 % 07/20/17 07:06 Triglycerides 70 mg/dL (2-149) 07/14/17 05:43 Urine Color Yellow (Yellow) 07/08/17 16:30 Urine Turbidity Clear (Clear) 07/08/17 16:30 Urine pH 5.0 (5.0-7.0) 07/08/17 16:30 Ur Specific [place] 1.027 (1.003-1.030) 07/08/17 16:30 Urine Protein 30 mg/dl mg/dL (Negative) 07/08/17 16:30 Urine Glucose (UA) Neg mg/dL (Negative) 07/08/17 16:30 Urine Ketones Tr mg/dL (Negative) 07/08/17 16:30 Urine Blood Mod (Negative) 07/08/17 16:30 Urine Nitrite Neg (Negative) 07/08/17 16:30 Urine Bilirubin Neg (Negative) 07/08/17 16:30 Urine Urobilinogen < 2.0 mg/dL (<2.0) 07/08/17 16:30 Ur Leukocyte Esterase Tr (Negative) 07/08/17 16:30 Urine WBC (Auto) 8.0 /HPF (0.0-6.0) H 07/08/17 16:30 Urine RBC (Auto) 2.0 /HPF (0.0-6.0) 07/08/17 16:30 U Epithel Cells (Auto) < 1.0 /HPF (0-13.0) 07/08/17 16:30 Urine Mucus Few /HPF 07/08/17 16:30 Urine Yeast (Budding) 1+ /HPF 07/08/17 16:30 Blood Type O POSITIVE 07/08/17 23:29 Antibody Screen Negative 07/08/17 23:29
[2017-07-22] MEDS ORDERED: TPN ADULT 2,016 ML IV SCH ×2 (20:00)
[2017-07-23] MEDS: MORPHINE IV PRN ×5 (02:49→18:26)
[2017-07-23] MEDS: MERREM 1,000 MG in NACL 0.9% 100 ML IV SCH ×3 (05:59→21:31)
[2017-07-23 06:21] LABS: BUN/Creatinine Ratio 27; Blood Urea Nitrogen 16 mg/dL (9-20); Calcium 8.3 mg/dL (8.4-10.2); Hemolysis Index 0
[2017-07-23] MEDS: PEPCID IV SCH ×3 (08:07→21:31)
[2017-07-23] MEDS: HABITROL TD SCH ×2 (08:07→10:00)
[2017-07-23] MEDS: HEPARIN SUB-Q SCH ×2 (08:07→10:00)
--- NOTE | 2017-07-23 08:54 | Progress Note ---
Subjective Patient Reports: Positive: feels better, tolerating liquids well, flatus, bowel movement Narrative: Doing fine , abd flatand soft , ostomy empty , will d/c in AM ? Objective Vital Signs - 12hr 07/23/17 07/23/17 07/23/17 00:02 05:49 07:10 Temperature 99.1 F 98.7 F 97.6 F Pulse Rate 100 H 90 Respiratory 18 20 Rate Blood Pressure 112/67 100/59 O2 Sat by Pulse 96 99 Oximetry - Labs 07/18/17 05:37 07/23/17 05:30 Diabetes panel 07/23/17 Range/Units 05:30 Sodium 133 L (137-145) mmol/L Potassium 4.3 (3.6-5.0) mmol/L Chloride 99.4 (98-107) mmol/L Carbon Dioxide 28 (22-30) mmol/L BUN 16 (9-20) mg/dL Creatinine 0.6 L (0.8-1.5) mg/dL Glucose 80 (75-100) mg/dL Calcium 8.3 L (8.4-10.2) mg/dL Calcium panel 07/23/17 Range/Units 05:30 Calcium 8.3 L (8.4-10.2) mg/dL Phosphorus 2.90 (2.5-4.5) mg/dL Pituitary panel 07/23/17 Range/Units 05:30 Sodium 133 L (137-145) mmol/L Potassium 4.3 (3.6-5.0) mmol/L Chloride 99.4 (98-107) mmol/L Carbon Dioxide 28 (22-30) mmol/L BUN 16 (9-20) mg/dL Creatinine 0.6 L (0.8-1.5) mg/dL Glucose 80 (75-100) mg/dL Calcium 8.3 L (8.4-10.2) mg/dL Adrenal panel 07/23/17 Range/Units 05:30 Sodium 133 L (137-145) mmol/L Potassium 4.3 (3.6-5.0) mmol/L Chloride 99.4 (98-107) mmol/L Carbon Dioxide 28 (22-30) mmol/L BUN 16 (9-20) mg/dL Creatinine 0.6 L (0.8-1.5) mg/dL Glucose 80 (75-100) mg/dL Calcium 8.3 L (8.4-10.2) mg/dL
--- NOTE | 2017-07-23 10:32 | XRay Report ---
Single view abdomen: History: Postop. Findings: Moderate mid distended loops of small bowel with moderate amount of large bowel. Minimal air in the rectosigmoid. No significant interval change. Impression: Probable postoperative ileus. Partial small bowel obstruction cannot be excluded.
--- NOTE | 2017-07-23 11:33 | Progress Note ---
Assessment and Plan Assessment: 1) Severe sepsis: better. Etiology most likely surgical wound infection +/- intra-abdominal abscess +/- E coli bacteremia. 2) E coli bacteremia: from surgical site infection -Blood cx / E coli -Repeat blood cx no growth so far -CRP=19 3) Surgical wound infection ?dehiscence ? leak with intra-abdominal abscess vs. collection - still leaking -Wound cx 07/08 E coli and MDR Enterobacter -Ct abd showed continued or recurrent large right inguinal canal hernia extending into scrotum and possible large pelvic abscess. -Fistulogram showed positive sinus tract communicating with blind end presumedly a collection. 4) LEIGHA - better 5) Elevated ELFs - likely from sepsis 6) Recent small bowel gangrene secondary to incarcerated inguinal hernia -Status post bowel resection on 06/30 Plan: -continue meropenem D1014 -wound is still leaking -if patient is discharged home will do cipro 500 mg po BID for extra 7 days until 07/26/17 (cipro is free at [facility]) -contact isolation Discussed with Dr Rivera Thank you for your consultation, will follow up with you. Johana Mcqueen MD Infectious Diseases Specialist [facility] ([facility] M [phone] O [phone] Subjective Date of service: 07/23/17 Principal diagnosis: Severe Sepsis; Intra-Abdominal Abscess; Gram negative bacteremia Interval history: Feels ok. No fever. reports leakage is better Microbiology: Blood cultures: / E coli 5/6 neg Urine cultures: / <10K Respiratory cultures: Wound cultures: 5/3 E coli and MDR Enterobacter Stool cultures: Other: Current Antimicrobials: meropenem 07/12 Previous Antimicrobials: Flagyl / Vancomycin / Cefepime 5/ Objective - Exam Narrative Exam: General appearance: Alert in NAD, conversant Eyes: anicteric sclerae, moist conjunctivae; no lid-lag; PERRLA HENT: Atraumatic; oropharynx clear poor dentition Neck: Trachea midline; supple, no thyromegaly or lymphadenopathy Lungs: CTA, with normal respiratory effort and no intercostal retractions CV: RRR, no murmurs Abdomen: Soft, +midline wound +right groin wound upper still green leakage Extremities: No peripheral edema or extremity lymphadenopathy Skin: Normal temperature, turgor and texture; no rash, ulcers or subcutaneous nodules Psych: Appropriate affect, alert and oriented to person, place and time. Neuro: alert and oriented x 3. Moving all extermities Lines: - Constitutional Vitals: Vital Signs Temp Pulse Resp BP Pulse Ox 97.6 F 90 20 100/59 99 07/23/17 07:10 07/23/17 07:10 07/23/17 07:10 07/23/17 07:10 07/23/17 07:10 Temperature -Last 24 Hours Temperature 97.6 F Temperature 98.7 F Temperature 99.1 F Temperature 99.4 F Temperature 98.7 F - Labs CBC & Chem 7: 07/18/17 05:37 07/23/17 05:30 Labs: Abnormal lab results 07/22/17 07/22/17 07/23/17 Range/Units 11:14 16:39 00:58 Sodium (137-145) mmol/L Creatinine (0.8-1.5) mg/dL POC Glucose 133 H 115 H 123 H (70-105) Calcium (8.4-10.2) mg/dL 07/23/17 07/23/17 Range/Units 05:30 06:16 Sodium 133 L (137-145) mmol/L Creatinine 0.6 L (0.8-1.5) mg/dL POC Glucose 141 H (70-105) Calcium 8.3 L (8.4-10.2) mg/dL
[2017-07-23] MEDS: SODIUM CHLORIDE FLUSH SYRINGE 10 ML IV SCH ×2 (12:21→21:33)
--- NOTE | 2017-07-23 13:22 | Progress Note ---
Assessment and Plan Assessment and plan: Patient is a 61 year old -[place] male who presented to the ED on account of foul smelling drainage from his surgical wound on his abdomen. The patient was discharged from the hospital yesterday after undergoing open laparotomy for a right inguinal hernia with small bowel obstruction. At the time of surgery, it was found that the patient had a gangrenous small bowel, for which he underwent partial small bowel resection. He has associated generalized abdominal pain and generalized weakness. He denies nausea, vomiting , constipation or diarrhea. No fever, chills, chest pain, shortness of breath or palpitations. On presentation the patient was started on meropenem Of Surgery Start the Patient on Conservative Management with TPN and Subsequently Transitioned to Full Liquid Which he Is Tolerating Today. If Continues to Improve Patient Discharged in A.M. Recommendation for Antibiotics As Is Documented by the Infectious Disease Physician Pelvic abscess and wound dehiscence s/p recent surgery on last admission(06/30) Continue Merrem. Vancomycin discontinued Dr. Lopez following Conservative management for now Fistulogram obtained and showed sinus tract draining intra-abdominal collection Normal full liquid diet. Mental prophylaxis. Discharge in a.m. if okay with surgery. Severe sepsis secondary to the pelvic abscess and bacteremia patient placed on sepsis protocol wound Culture growing Escherichia coli and MDR Enterobacter, blood cx positive for E. coli ID on board, Continue meropenem Hypotension secondary to sepsis Now resolved, BP stable. Continue iv fluids Recurrent right inguinal hernia Conservative management for now Transaminitis likely secondary to sepsis, Now resolved Will continue to monitor his liver function test levels Acute kidney injury from severe sepsis LEIGAH now resolved, Cr 0.7 today Anemia Will monitor his H/H and transfuse if hgb < 7 Prophylaxis DVT prophylaxis with Heparin,SCD GI prophylaxis with Protonix Full code status History Interval history: Patient seen and examined in no acute distress. abdominal pain improved, flatus , colostomy with noted output. Patient tolerated to full liquids. Hospitalist Physical - Physical exam Narrative exam: VITAL SIGNS: Reviewed. GENERAL: The patient appeared chronically ill appearing. Vital signs as documented. HEAD: No signs of head trauma. EYES: Pupils are equal. Extraocular motions intact. EARS: Hearing grossly intact. MOUTH: Oropharynx is normal. NECK: No adenopathy, no JVD. CHEST: Chest with clear breath sounds bilaterally. No wheezes, rales, or rhonchi. CARDIAC: Regular rate and rhythm. S1 and S2, without murmurs, gallops, or rubs. VASCULAR: No Edema. Peripheral pulses normal and equal in all extremities. ABDOMEN: Soft, [address] Drainage noted.. Dressing over wounds noted. No open drainage noted over. No sign of distention. No rebound or guarding, and no masses palpated. Bowel Sounds normal. MUSCULOSKELETAL: Good range of motion of all major joints. Extremities without clubbing, cyanosis or edema. NEUROLOGIC EXAM: Alert and oriented x 3. No focal sensory or strength deficits. Speech normal. Follows commands. PSYCHIATRIC: Mood normal. SKIN: No rash or lesions. - Constitutional Vitals: Temp Pulse Resp BP Pulse Ox 98.0 F 96 H 20 109/75 95 07/23/17 11:29 07/23/17 11:29 07/23/17 11:29 07/23/17 11:29 07/23/17 11:29 General appearance: Present: other (ill looking) Results - Labs CBC & Chem 7: 07/18/17 05:37 07/23/17 05:30 Labs: Laboratory Last Values WBC 8.9 K/mm3 (4.5-11.0) 07/18/17 05:37 RBC 2.74 M/mm3 (3.65-5.03) L 07/18/17 05:37 Hgb 8.8 gm/dl (11.8-15.2) L 07/18/17 05:37 Hct 25.5 % (35.5-45.6) L 07/18/17 05:37 MCV 93 fl (84-94) 07/18/17 05:37 MCH 32 pg (28-32) 07/18/17 05:37 MCHC 35 % (32-34) H 07/18/17 05:37 RDW 14.9 % (13.2-15.2) 07/18/17 05:37 Plt Count 457 K/mm3 (140-440) H 07/18/17 05:37 Lymph % (Auto) 12.6 % (13.4-35.0) L 07/18/17 05:37 [place] % (Auto) 8.5 % (0.0-7.3) H 07/18/17 05:37 Eos % (Auto) 2.0 % (0.0-4.3) 07/18/17 05:37 Baso % (Auto) 0.9 % (0.0-1.8) 07/18/17 05:37 Lymph # 1.1 K/mm3 (1.2-5.4) L 07/18/17 05:37 [place] # 0.8 K/mm3 (0.0-0.8) 07/18/17 05:37 Eos # 0.2 K/mm3 (0.0-0.4) 07/18/17 05:37 Baso # 0.1 K/mm3 (0.0-0.1) 07/18/17 05:37 Add Manual Diff Complete 07/10/17 04:16 Total Counted 100 07/10/17 04:16 Seg Neutrophils % 76.0 % (40.0-70.0) H 07/18/17 05:37 Seg Neuts % (Manual) 93.0 % (40.0-70.0) H 07/10/17 04:16 Band Neutrophils % 1.0 % 07/10/17 04:16 Lymphocytes % (Manual) 3.0 % (13.4-35.0) L 07/10/17 04:16 Reactive Lymphs % (Man) 0 % 07/10/17 04:16 Monocytes % (Manual) 3.0 % (0.0-7.3) 07/10/17 04:16 Eosinophils % (Manual) 0 % (0.0-4.3) 07/10/17 04:16 Basophils % (Manual) 0 % (0.0-1.8) 07/10/17 04:16 Metamyelocytes % 0 % 07/10/17 04:16 Myelocytes % 0 % 07/10/17 04:16 Promyelocytes % 0 % 07/10/17 04:16 Blast Cells % 0 % 07/10/17 04:16 Nucleated RBC % Not Reportable 07/10/17 04:16 Seg Neutrophils # 6.8 K/mm3 (1.8-7.7) 07/18/17 05:37 Seg Neutrophils # Man 24.9 K/mm3 (1.8-7.7) H 07/10/17 04:16 Band Neutrophils # 0.3 K/mm3 07/10/17 04:16 Lymphocytes # (Manual) 0.8 K/mm3 (1.2-5.4) L 07/10/17 04:16 Abs React Lymphs (Man) 0.0 K/mm3 07/10/17 04:16 Monocytes # (Manual) 0.8 K/mm3 (0.0-0.8) 07/10/17 04:16 Eosinophils # (Manual) 0.0 K/mm3 (0.0-0.4) 07/10/17 04:16 Basophils # (Manual) 0.0 K/mm3 (0.0-0.1) 07/10/17 04:16 Metamyelocytes # 0.0 K/mm3 07/10/17 04:16 Myelocytes # 0.0 K/mm3 07/10/17 04:16 Promyelocytes # 0.0 K/mm3 07/10/17 04:16 Blast Cells # 0.0 K/mm3 07/10/17 04:16 WBC Morphology Not Reportable 07/10/17 04:16 Hypersegmented Neuts Not Reportable 07/10/17 04:16 Hyposegmented Neuts Not Reportable 07/10/17 04:16 Hypogranular Neuts Not Reportable 07/10/17 04:16 Smudge Cells Not Reportable 07/10/17 04:16 Toxic Granulation Not Reportable 07/10/17 04:16 Toxic Vacuolation Not Reportable 07/10/17 04:16 Dohle Bodies Not Reportable 07/10/17 04:16 Pelger-Huet Anomaly Not Reportable 07/10/17 04:16 Winter Rods Not Reportable 07/10/17 04:16 Platelet Estimate Appears normal 07/10/17 04:16 Clumped Platelets Not Reportable 07/10/17 04:16 Plt Clumps, EDTA Not Reportable 07/10/17 04:16 Large Platelets Not Reportable 07/10/17 04:16 Giant Platelets Not Reportable 07/10/17 04:16 Platelet Satelliting Not Reportable 07/10/17 04:16 Plt Morphology Comment Not Reportable 07/10/17 04:16 RBC Morphology Not Reportable 07/10/17 04:16 Dimorphic RBCs Not Reportable 07/10/17 04:16 Polychromasia Not Reportable 07/10/17 04:16 Hypochromasia 1+ 07/10/17 04:16 Poikilocytosis Not Reportable 07/10/17 04:16 Anisocytosis 1+ 07/10/17 04:16 Microcytosis Not Reportable 07/10/17 04:16 Macrocytosis Not Reportable 07/10/17 04:16 Spherocytes Not Reportable 07/10/17 04:16 Pappenheimer Bodies Not Reportable 07/10/17 04:16 Sickle Cells Not Reportable 07/10/17 04:16 Target Cells Not Reportable 07/10/17 04:16 Tear Drop Cells Not Reportable 07/10/17 04:16 Ovalocytes 1+ 07/10/17 04:16 Helmet Cells Not Reportable 07/10/17 04:16 [place] Bodies Not Reportable 07/10/17 04:16 [place] Rings Not Reportable 07/10/17 04:16 [place] Cells Not Reportable 07/10/17 04:16 Bite Cells Not Reportable 07/10/17 04:16 Crenated Cell Not Reportable 07/10/17 04:16 Elliptocytes Not Reportable 07/10/17 04:16 Acanthocytes (Spur) Not Reportable 07/10/17 04:16 Rouleaux Not Reportable 07/10/17 04:16 Hemoglobin C Crystals Not Reportable 07/10/17 04:16 Schistocytes Not Reportable 07/10/17 04:16 Malaria parasites Not Reportable 07/10/17 04:16 Erasmo Bodies Not Reportable 07/10/17 04:16 Hem Pathologist Commnt No 07/10/17 04:16 PT 16.9 Sec. (12.2-14.9) H 07/08/17 18:05 INR 1.30 (0.87-1.13) H 07/08/17 18:05 VBG pH 7.443 (7.320-7.420) H 07/08/17 18:05 Sodium 133 mmol/L (137-145) L 07/23/17 05:30 Potassium 4.3 mmol/L (3.6-5.0) 07/23/17 05:30 Chloride 99.4 mmol/L (98-107) 07/23/17 05:30 Carbon Dioxide 28 mmol/L (22-30) 07/23/17 05:30 Anion Gap 10 mmol/L 07/23/17 05:30 BUN 16 mg/dL (9-20) 07/23/17 05:30 Creatinine 0.6 mg/dL (0.8-1.5) L 07/23/17 05:30 Estimated GFR > 60 ml/min 07/23/17 05:30 BUN/Creatinine Ratio 27 % 07/23/17 05:30 Glucose 80 mg/dL (75-100) 07/23/17 05:30 POC Glucose 141 (70-105) H 07/23/17 06:16 Lactic Acid 1.10 mmol/L (0.7-2.0) 07/09/17 08:06 Calcium 8.3 mg/dL (8.4-10.2) L 07/23/17 05:30 Phosphorus 2.90 mg/dL (2.5-4.5) 07/23/17 05:30 Magnesium 1.80 mg/dL (1.7-2.3) 07/23/17 05:30 Total Bilirubin 0.20 mg/dL (0.1-1.2) 07/20/17 07:06 AST 18 units/L (5-40) 07/20/17 07:06 ALT 19 units/L (7-56) 07/20/17 07:06 Alkaline Phosphatase 106 units/L (35-129) 07/20/17 07:06 C-Reactive Protein 19.80 mg/dL (0.00-1.30) H 07/11/17 05:41 Total Protein 6.7 g/dL (6.3-8.2) 07/20/17 07:06 Albumin 3.0 g/dL (3.9-5) L 07/20/17 07:06 Albumin/Globulin Ratio 0.8 % 07/20/17 07:06 Triglycerides 70 mg/dL (2-149) 07/14/17 05:43 Urine Color Yellow (Yellow) 07/08/17 16:30 Urine Turbidity Clear (Clear) 07/08/17 16:30 Urine pH 5.0 (5.0-7.0) 07/08/17 16:30 Ur Specific [place] 1.027 (1.003-1.030) 07/08/17 16:30 Urine Protein 30 mg/dl mg/dL (Negative) 07/08/17 16:30 Urine Glucose (UA) Neg mg/dL (Negative) 07/08/17 16:30 Urine Ketones Tr mg/dL (Negative) 07/08/17 16:30 Urine Blood Mod (Negative) 07/08/17 16:30 Urine Nitrite Neg (Negative) 07/08/17 16:30 Urine Bilirubin Neg (Negative) 07/08/17 16:30 Urine Urobilinogen < 2.0 mg/dL (<2.0) 07/08/17 16:30 Ur Leukocyte Esterase Tr (Negative) 07/08/17 16:30 Urine WBC (Auto) 8.0 /HPF (0.0-6.0) H 07/08/17 16:30 Urine RBC (Auto) 2.0 /HPF (0.0-6.0) 07/08/17 16:30 U Epithel Cells (Auto) < 1.0 /HPF (0-13.0) 07/08/17 16:30 Urine Mucus Few /HPF 07/08/17 16:30 Urine Yeast (Budding) 1+ /HPF 07/08/17 16:30 Blood Type O POSITIVE 07/08/17 23:29 Antibody Screen Negative 07/08/17 23:29
[2017-07-23] MEDS ORDERED: TPN ADULT 2,016 ML IV SCH (20:00)
[2017-07-23] MEDS ORDERED: INTRALIPID 20% 250 ML IV SCH (20:00)
[2017-07-23] MEDS: ATIVAN PO SCH (21:31)
[2017-07-23] MEDS: NORCO 7.5/325 PO PRN (21:31)
[2017-07-24] MEDS: HEPARIN SUB-Q SCH ×3 (00:09→23:27)
[2017-07-24] MEDS: MORPHINE IV PRN ×3 (00:57→23:23)
[2017-07-24] MEDS: NORCO 7.5/325 PO PRN ×2 (05:56→12:50)
[2017-07-24] MEDS: MERREM 1,000 MG in NACL 0.9% 100 ML IV SCH ×3 (05:56→23:26)
[2017-07-24] MEDS: HABITROL TD SCH (09:04)
[2017-07-24] MEDS: COMPAZINE IV PRN (09:04)
[2017-07-24] MEDS: PEPCID IV SCH ×2 (09:04→23:27)
[2017-07-24] MEDS: SODIUM CHLORIDE FLUSH SYRINGE 10 ML IV SCH ×2 (09:05→23:36)
--- NOTE | 2017-07-24 12:43 | XRay Report ---
ABDOMINAL SERIES WITH CXR THREE VIEWS: 07/24/17 11:54:00 CLINICAL: Followup postop ileus. COMPARISON: 07/23/17 FINDINGS: Supine upright views demonstrate persistent moderate dilatation of mid and distal loops but they are less dilated than a day earlier. The proximal small bowel is nondistended. No pneumoperitoneum. There appears to be some rectal gas. Skin glo in the right lower quadrant. The chest is normal with a right PICC line with the tip in the distal SVC. IMPRESSION: Interval improvement with decreased small bowel dilatation. Normal chest.
[2017-07-24 13:41] LABS: Hematocrit 29.4 % (35.5-45.6); Hemoglobin 9.7 gm/dl (11.8-15.2); Mean Corpuscular HGB Conc 33 % (32-34); Mean Corpuscular Hemoglobin 31 pg (28-32); Mean Corpuscular Volume 94 fl (84-94); Platelet Count 384 K/mm3 (140-440); Red Blood Count 3.12 M/mm3 (3.65-5.03); Red Cell Distribution Width 14.9 % (13.2-15.2)
--- NOTE | 2017-07-24 16:05 | Progress Note ---
Assessment and Plan Patient is a 61 year old -[place] male who presented to the ED on account of foul smelling drainage from his surgical wound on his abdomen. The patient was discharged from the hospital yesterday after undergoing open laparotomy for a right inguinal hernia with small bowel obstruction. At the time of surgery, it was found that the patient had a gangrenous small bowel, for which he underwent partial small bowel resection. He has associated generalized abdominal pain and generalized weakness. He denies nausea, vomiting , constipation or diarrhea. No fever, chills, chest pain, shortness of breath or palpitations. On presentation the patient was started on meropenem Of Surgery Start the Patient on Conservative Management with TPN and Subsequently Transitioned to Full Liquid Which he Is Tolerating Today. If Continues to Improve Patient Discharged in A.M. Recommendation for Antibiotics As Is Documented by the Infectious Disease Physician Pelvic abscess and wound dehiscence s/p recent surgery on last admission(06/30) Continue Merrem. Vancomycin discontinued Dr. Lopez following Conservative management for now Fistulogram obtained and showed sinus tract draining intra-abdominal collection Normal full liquid diet. Mental prophylaxis. Discharge in a.m. if okay with surgery. Severe sepsis secondary to the pelvic abscess and bacteremia patient placed on sepsis protocol wound Culture growing Escherichia coli and MDR Enterobacter, blood cx positive for E. coli ID on board, Continue meropenem Hypotension secondary to sepsis Now resolved, BP stable. Continue iv fluids Recurrent right inguinal hernia Conservative management for now Transaminitis likely secondary to sepsis, Now resolved Will continue to monitor his liver function test levels Acute kidney injury from severe sepsis LEIGHA now resolved, Cr 0.7 today Anemia Will monitor his H/H and transfuse if hgb < 7 Prophylaxis DVT prophylaxis with Heparin,SCD GI prophylaxis with Protonix Full code status Subjective Date of service: 07/24/17 Principal diagnosis: Severe Sepsis; Intra-Abdominal Abscess; Gram negative bacteremia Interval history: Seen and examined, examined any fever. No abdominal pain. No nausea no vomiting. Objective - Exam Narrative Exam: Constitutional: Well-nourished well-developed. In no distress Head: Normocephalic atraumatic Eyes: Pupils are equal round and reactive to light Nose: No enlarged turbinates, no septal deviation. Mouth: Moist mucous membranes. Neck: Supple no thyromegaly. No bruit. No JVD Heart: Regular rate and rhythm, S1-S2 abnormal. No rubs murmurs or gallop Lungs: Clear to auscultation bilaterally no rales or rhonchi Abdomen: Soft, nontender. Bowel sound are present. Extremities: No edema no cyanosis and no clubbing. Neuro: Alert oriented Oriented x3. No focal sensory or motor deficit. Skin: No rashes no hyperemic spots Psychiatry: Euthymic. Calm. - Constitutional Vitals: Vital Signs - 12hr 07/24/17 07/24/17 07/24/17 04:55 05:56 06:56 Temperature 99.1 F Pulse Rate 100 H Respiratory 18 18 16 Rate Blood Pressure 113/65 O2 Sat by Pulse 96 Oximetry 07/24/17 07/24/17 07/24/17 07:15 11:55 12:50 Temperature 99.4 F 98.9 F Pulse Rate 107 H 116 H Respiratory 18 18 18 Rate Blood Pressure 120/70 114/70 O2 Sat by Pulse 99 96 Oximetry - Labs CBC & Chem 7: 07/24/17 12:40 07/23/17 05:30 Labs: Abnormal lab results 07/24/17 07/24/17 07/24/17 Range/Units 00:01 05:58 12:40 RBC 3.12 L (3.65-5.03) M/mm3 Hgb 9.7 L (11.8-15.2) gm/dl Hct 29.4 L (35.5-45.6) % POC Glucose 106 H 112 H (70-105)
--- NOTE | 2017-07-24 16:12 | Progress Note ---
Subjective Patient Reports: Positive: nausea, vomiting Narrative: [place] nauseated today , KUB improved gas pattern , talked to Dr Suarez will obtain small bowel series in AM , cbc OK Objective Vital Signs - 12hr 07/24/17 07/24/17 07/24/17 04:55 05:56 06:56 Temperature 99.1 F Pulse Rate 100 H Respiratory 18 18 16 Rate Blood Pressure 113/65 O2 Sat by Pulse 96 Oximetry 07/24/17 07/24/17 07/24/17 07:15 11:55 12:50 Temperature 99.4 F 98.9 F Pulse Rate 107 H 116 H Respiratory 18 18 18 Rate Blood Pressure 120/70 114/70 O2 Sat by Pulse 99 96 Oximetry - Labs 07/24/17 12:40 07/23/17 05:30
[2017-07-24] MEDS: COMPAZINE IV SCH ×2 (18:54→23:27)
[2017-07-24] MEDS: D5W/0.45% NACL/KCL 20 MEQ 20 MEQ/1,000 ML BAG IV SCH (18:55)
[2017-07-24] MEDS: ATIVAN PO SCH (23:27)
[2017-07-25] MEDS: MORPHINE IV PRN ×4 (05:34→20:16)
[2017-07-25] MEDS: MERREM 1,000 MG in NACL 0.9% 100 ML IV SCH ×3 (05:35→22:29)
[2017-07-25] MEDS: COMPAZINE IV SCH ×4 (05:35→22:29)
[2017-07-25] MEDS: PEPCID IV SCH ×2 (10:03→22:29)
[2017-07-25] MEDS: HEPARIN SUB-Q SCH ×2 (10:03→22:29)
[2017-07-25] MEDS: SODIUM CHLORIDE FLUSH SYRINGE 10 ML IV SCH ×2 (10:04→22:30)
[2017-07-25] MEDS: HABITROL TD SCH (10:04)
--- NOTE | 2017-07-25 13:44 | Fluoroscopy Report ---
Gastrografin enema: Next History: Postop. Findings: There is no obstruction noted to flow of Gastrografin from rectosigmoid to cecum region. Reflux is seen the terminal ileum. No extrinsic or intrinsic filling defect noted in the descending transverse and ascending colon. Impression: Essentially negative Gastrografin enema.
[2017-07-25] MEDS: D5W/0.45% NACL/KCL 20 MEQ 20 MEQ/1,000 ML BAG IV SCH (13:55)
--- NOTE | 2017-07-25 14:03 | Progress Note ---
Assessment and Plan Patient is a 61 year old -[place] male who presented to the ED on account of foul smelling drainage from his surgical wound on his abdomen. The patient was discharged from the hospital yesterday after undergoing open laparotomy for a right inguinal hernia with small bowel obstruction. At the time of surgery, it was found that the patient had a gangrenous small bowel, for which he underwent partial small bowel resection. He has associated generalized abdominal pain and generalized weakness. He denies nausea, vomiting , constipation or diarrhea. No fever, chills, chest pain, shortness of breath or palpitations. On presentation the patient was started on meropenem Of Surgery Start the Patient on Conservative Management with TPN and Subsequently Transitioned to Full Liquid Which he Is Tolerating Today. If Continues to Improve Patient Discharged in A.M. Recommendation for Antibiotics As Is Documented by the Infectious Disease Physician Pelvic abscess and wound dehiscence s/p recent surgery on last admission(06/30) Continue Merrem. Vancomycin discontinued Dr. Lopez following Conservative management for now Fistulogram obtained and showed sinus tract draining intra-abdominal collection Normal full liquid diet. Mental prophylaxis. Severe sepsis secondary to the pelvic abscess and bacteremia patient placed on sepsis protocol wound Culture growing Escherichia coli and MDR Enterobacter, blood cx positive for E. coli ID on board, Continue meropenem Hypotension secondary to sepsis Now resolved, BP stable. Continue iv fluids Recurrent right inguinal hernia Conservative management for now Transaminitis likely secondary to sepsis, Now resolved Will continue to monitor his liver function test levels Acute kidney injury from severe sepsis LEIGHA now resolved, Cr 0.7 today Anemia Will monitor his H/H and transfuse if hgb < 7 Prophylaxis DVT prophylaxis with Heparin,SCD GI prophylaxis with Protonix Full code status Subjective Date of service: 07/25/17 Principal diagnosis: Severe Sepsis; Intra-Abdominal Abscess; Gram negative bacteremia Interval history: Seen and examined. c/o bilious drainage fro the abdomen. No fever. No abdominal pain. No nausea no vomiting. Objective - Exam Narrative Exam: Constitutional: Well-nourished well-developed. In no distress Head: Normocephalic atraumatic Eyes: Pupils are equal round and reactive to light Nose: No enlarged turbinates, no septal deviation. Mouth: Moist mucous membranes. Neck: Supple no thyromegaly. No bruit. No JVD Heart: Regular rate and rhythm, S1-S2 abnormal. No rubs murmurs or gallop Lungs: Clear to auscultation bilaterally no rales or rhonchi Abdomen: Soft, nontender. Bious draiangwe from the wound . Extremities: No edema no cyanosis and no clubbing. Neuro: Alert oriented Oriented x3. No focal sensory or motor deficit. Skin: No rashes no hyperemic spots Psychiatry: Euthymic. Calm. - Constitutional Vitals: Vital Signs - 12hr 07/25/17 07:21 Temperature 99.3 F Pulse Rate 110 H Respiratory 20 Rate Blood Pressure 127/76 O2 Sat by Pulse 99 Oximetry - Labs CBC & Chem 7: 07/24/17 12:40 07/23/17 05:30 Labs: Abnormal lab results 07/24/17 07/25/17 Range/Units 22:04 05:32 POC Glucose 109 H 117 H (70-105)
--- NOTE | 2017-07-25 15:56 | Progress Note ---
Subjective Patient Reports: Positive: still having pain, flatus, bowel movement, vomiting Narrative: GI contrast showed normal Colon , small bowel follow thru a leak in th Rt lowe abd , case discussed with Dr Perez , suggest CT taked to Pt abd alittle distended .will have NG tube ,to low inter suction . Objective Vital Signs - 12hr 07/25/17 07:21 Temperature 99.3 F Pulse Rate 110 H Respiratory 20 Rate Blood Pressure 127/76 O2 Sat by Pulse 99 Oximetry - Labs 07/24/17 12:40 07/23/17 05:30
[2017-07-25 17:28] LABS: INR 1.05 (0.87-1.13)
[2017-07-25] MEDS ORDERED: ATIVAN IV PRN (22:55)
[2017-07-26] MEDS: MORPHINE IV PRN ×6 (00:02→22:00)
[2017-07-26] MEDS: ATIVAN PO SCH (00:18)
[2017-07-26] MEDS: D5W/0.45% NACL/KCL 20 MEQ 20 MEQ/1,000 ML BAG IV SCH (05:17)
[2017-07-26] MEDS: MERREM 1,000 MG in NACL 0.9% 100 ML IV SCH ×3 (05:28→21:39)
[2017-07-26] MEDS: COMPAZINE IV SCH ×2 (05:28→12:06)
[2017-07-26] MEDS: HEPARIN SUB-Q SCH ×2 (09:34→21:44)
[2017-07-26] MEDS: SODIUM CHLORIDE FLUSH SYRINGE 10 ML IV SCH ×2 (09:35→22:07)
[2017-07-26] MEDS: PEPCID IV SCH ×2 (09:35→21:41)
[2017-07-26] MEDS: HABITROL TD SCH (09:35)
--- NOTE | 2017-07-26 12:11 | Cat Scan Report ---
CT abdomen and pelvis with and without IV contrast: Right inguinal hernia repair with postoperative leakage. Transverse images are obtained from lower chest to the ischium prior to and following intravenous contrast. Oral contrast was administered for both sets of images. Coronal and sagittal reconstruction images are included. The lung bases are clear. The abdominal and retroperitoneal organs are unremarkable. The small bowel is diffusely dilated. There is an inguinal hernia on the right containing a vascularized and markedly thickened bowel wall extending from the small bowel. The neck of the inguinal hernia is narrowed and there is no oral contrast nor gas in the sac. There are some scattered surgical sutures in the region and along the skin surface. There is contrast in the colon however the patient had a recent barium enema which could be residual contrast. Compared with the postoperative exam on July 08 the herniated bowel diameter is smaller. There is no free fluid or extraluminal contrast identified. Impression: Persistent right inguinal hernia obstructing small bowel. Interval reduction in hernia size compared to July 08.
--- NOTE | 2017-07-26 15:50 | Fluoroscopy Report ---
X-RAY SMALL BOWEL SERIES SEVEN IMAGES: 07/25/17 CLINICAL: Postop nausea and vomiting. FINDINGS: This examination was initiated and supervised by Dr. Perez. An initial image at five minutes demonstrates contrast in the fundus of the stomach and contrast in proximal and mid small bowel. There is also residual contrast in the rectum and left colon from a Gastrografin enema done on the same day prior to this exam. Subsequent images demonstrate moderate distention of proximal and distal small bowel loops. The last image was performed at seven hours and demonstrates marked distention small bowel and no contrast in the right colon. IMPRESSION: Small bowel obstruction with the point of obstruction obstruction in the right lower quadrant.
--- NOTE | 2017-07-26 18:09 | Progress Note ---
Assessment and Plan Patient is a 61 year old -Swiss male who presented to the ED on account of foul smelling drainage from his surgical wound on his abdomen. The patient was discharged from the hospital yesterday after undergoing open laparotomy for a right inguinal hernia with small bowel obstruction. At the time of surgery, it was found that the patient had a gangrenous small bowel, for which he underwent partial small bowel resection. He has associated generalized abdominal pain and generalized weakness. He denies nausea, vomiting , constipation or diarrhea. No fever, chills, chest pain, shortness of breath or palpitations. On presentation the patient was started on meropenem Of Surgery Start the Patient on Conservative Management with TPN and Subsequently Transitioned to Full Liquid Which he Is Tolerating Today. If Continues to Improve Patient Discharged in A.M. Recommendation for Antibiotics As Is Documented by the Infectious Disease Physician Pelvic abscess and wound dehiscence s/p recent surgery on last admission(06/30) Continue Merrem. Vancomycin discontinued Dr. Lopez following Conservative management for now Fistulogram obtained and showed sinus tract draining intra-abdominal collection Now reverted to NPO and NGT to low intemiteint suction Normal full liquid diet. Mental prophylaxis. Severe sepsis secondary to the pelvic abscess and bacteremia patient placed on sepsis protocol wound Culture growing Escherichia coli and MDR Enterobacter, blood cx positive for E. coli ID on board, Continue meropenem Hypotension secondary to sepsis Now resolved, BP stable. Continue iv fluids Recurrent right inguinal hernia Conservative management for now Transaminitis likely secondary to sepsis, Now resolved Will continue to monitor his liver function test levels Acute kidney injury from severe sepsis LEIGHA now resolved, Cr 0.7 today Anemia Will monitor his H/H and transfuse if hgb < 7 Prophylaxis DVT prophylaxis with Heparin,SCD GI prophylaxis with Protonix Full code status Subjective Date of service: 07/26/17 Principal diagnosis: Severe Sepsis; Intra-Abdominal Abscess; Gram negative bacteremia Interval history: Seen and examined. c/o bilious drainage from the abdomen wound. has fistuloggram done today. No fever. No abdominal pain. No nausea no vomiting. Objective - Exam Narrative Exam: Constitutional: Well-nourished well-developed. In no distress Head: Normocephalic atraumatic Eyes: Pupils are equal round and reactive to light Nose: No enlarged turbinates, no septal deviation. Mouth: Moist mucous membranes. Neck: Supple no thyromegaly. No bruit. No JVD Heart: Regular rate and rhythm, S1-S2 abnormal. No rubs murmurs or gallop Lungs: Clear to auscultation bilaterally no rales or rhonchi Abdomen: Soft, nontender. Bious draiangwe from the wound . Extremities: No edema no cyanosis and no clubbing. Neuro: Alert oriented Oriented x3. No focal sensory or motor deficit. Skin: No rashes no hyperemic spots Psychiatry: Euthymic. Calm. - Constitutional Vitals: Vital Signs - 12hr 07/26/17 07/26/17 07:44 15:28 Temperature 97.9 F 98.6 F Pulse Rate 120 H 123 H Respiratory 22 16 Rate Blood Pressure 120/77 140/77 O2 Sat by Pulse 97 98 Oximetry General appearance: Present: no acute distress, well-nourished - EENT Eyes: PERRL, EOM intact - Neck Neck: supple, normal ROM - Respiratory Respiratory effort: normal Respiratory: bilateral: CTA - Cardiovascular Rhythm: regular Heart Sounds: Present: S1 & S2. Absent: gallop, rub Extremities: pulses intact, No edema, normal color, Full ROM - Gastrointestinal General gastrointestinal: Present: soft, non-tender, non-distended, normal bowel sounds - Integumentary Integumentary: clear, warm, dry - Musculoskeletal Musculoskeletal: 1, strength equal bilaterally - Neurologic Neurologic: moves all extremities - Psychiatric Psychiatric: memory intact, appropriate mood/affect, intact judgment & insight - Labs CBC & Chem 7: 07/24/17 12:40 07/23/17 05:30
--- NOTE | 2017-07-26 20:13 | Progress Note ---
Assessment and Plan Assessment: 1) Severe sepsis: better. Etiology most likely surgical wound infection +/- intra-abdominal abscess +/- E coli bacteremia. 2) E coli bacteremia: from surgical site infection -Blood cx / E coli -Repeat blood cx no growth so far -CRP=19 3) Surgical wound infection ?dehiscence ? leak with intra-abdominal abscess vs. collection - still leaking -Wound cx / E coli and MDR Enterobacter -Ct abd showed continued or recurrent large right inguinal canal hernia extending into scrotum and possible large pelvic abscess. -Fistulogram showed positive sinus tract communicating with blind end presumedly a collection. 4) LEIGHA - better 5) Elevated ELFs - likely from sepsis 6) Recent small bowel gangrene secondary to incarcerated inguinal hernia -Status post bowel resection on 06/30 Plan: -continue meropenem D15 -Per surgery -GI contrast showed normal colon, small bowel follow showed a leak in the right lower abdomen- pt made NPO with NGT tube to low intermittent suction -contact isolation Thank you for your consultation, will follow up with you. Johana Mcqueen MD Infectious Diseases Specialist [facility] M [phone] O [phone] Subjective Date of service: 07/26/17 Principal diagnosis: Severe Sepsis; Intra-Abdominal Abscess; Gram negative bacteremia Interval history: Feels ok. No fever. Still leakage Microbiology: Blood cultures: 07/08 E coli / neg Urine cultures: 07/08 <10K Respiratory cultures: Wound cultures: / E coli and MDR Enterobacter Stool cultures: Other: Current Antimicrobials: meropenem 07/12 Previous Antimicrobials: Flagyl 07/09 Vancomycin / Cefepime / Objective - Exam Narrative Exam: General appearance: Alert in NAD, conversant Eyes: anicteric sclerae, moist conjunctivae; no lid-lag; PERRLA HENT: Atraumatic; oropharynx clear poor dentition Neck: Trachea midline; supple, no thyromegaly or lymphadenopathy Lungs: CTA, with normal respiratory effort and no intercostal retractions CV: RRR, no murmurs Abdomen: Soft, +midline wound +right groin wound upper still minimal green leakage Extremities: No peripheral edema or extremity lymphadenopathy Skin: Normal temperature, turgor and texture; no rash, ulcers or subcutaneous nodules Psych: Appropriate affect, alert and oriented to person, place and time. Neuro: alert and oriented x 3. Moving all extermities Lines: - Constitutional Vitals: Vital Signs Temp Pulse Resp BP Pulse Ox 98.6 F 123 H 16 140/77 98 07/26/17 15:28 07/26/17 15:28 07/26/17 15:28 07/26/17 15:28 07/26/17 15:28 Temperature -Last 24 Hours Temperature 98.6 F Temperature 97.9 F Temperature 98.9 F - Labs CBC & Chem 7: 07/24/17 12:40 07/23/17 05:30
[2017-07-27] MEDS: D5W/0.45% NACL/KCL 20 MEQ 20 MEQ/1,000 ML BAG IV SCH ×2 (00:24→17:26)
[2017-07-27] MEDS: MORPHINE IV PRN ×4 (02:05→21:56)
[2017-07-27] MEDS: HABITROL TD SCH (09:22)
[2017-07-27] MEDS: PEPCID IV SCH ×2 (09:23→21:56)
[2017-07-27] MEDS: SODIUM CHLORIDE FLUSH SYRINGE 10 ML IV SCH ×2 (09:24→21:58)
[2017-07-27] MEDS: HEPARIN SUB-Q SCH ×2 (09:32→21:57)
--- NOTE | 2017-07-27 10:34 | Progress Note ---
Assessment and Plan Patient is a 61 year old -[place] male who presented to the ED on account of foul smelling drainage from his surgical wound on his abdomen. The patient was discharged from the hospital yesterday after undergoing open laparotomy for a right inguinal hernia with small bowel obstruction. At the time of surgery, it was found that the patient had a gangrenous small bowel, for which he underwent partial small bowel resection. He has associated generalized abdominal pain and generalized weakness. He denies nausea, vomiting , constipation or diarrhea. No fever, chills, chest pain, shortness of breath or palpitations. On presentation the patient was started on meropenem Of Surgery Start the Patient on Conservative Management with TPN and Subsequently Transitioned to Full Liquid Which he Is Tolerating Today. If Continues to Improve Patient Discharged in A.M. Recommendation for Antibiotics As Is Documented by the Infectious Disease Physician Pelvic abscess and wound dehiscence s/p recent surgery on last admission(06/30) Continue Merrem. Vancomycin discontinued Dr. Lopez following Fistulogram obtained and showed sinus tract draining intra-abdominal collection Now reverted to NPO and NGT to low intemiteint suction Normal full liquid diet. Mental prophylaxis. Severe sepsis secondary to the pelvic abscess and bacteremia patient placed on sepsis protocol wound Culture growing Escherichia coli and MDR Enterobacter, blood cx positive for E. coli ID on board, Continue meropenem Hypotension secondary to sepsis Now resolved, BP stable. Continue iv fluids Recurrent right inguinal hernia Conservative management for now Transaminitis likely secondary to sepsis, Now resolved Will continue to monitor his liver function test levels Acute kidney injury from severe sepsis LEIGHA now resolved, Cr 0.7 today Anemia Will monitor his H/H and transfuse if hgb < 7 Prophylaxis DVT prophylaxis with Heparin,SCD GI prophylaxis with Protonix Full code status Subjective Date of service: 07/27/17 Principal diagnosis: Severe Sepsis; Intra-Abdominal Abscess; Gram negative bacteremia Interval history: Seen and examined. No fever c/o bilious drainage from the abdomen wound. has fistuloggram done today. No abdominal pain. No nausea no vomiting. Objective - Exam Narrative Exam: Constitutional: Well-nourished well-developed. In no distress Head: Normocephalic atraumatic Eyes: Pupils are equal round and reactive to light Nose: No enlarged turbinates, no septal deviation. Mouth: Moist mucous membranes. Neck: Supple no thyromegaly. No bruit. No JVD Heart: Regular rate and rhythm, S1-S2 abnormal. No rubs murmurs or gallop Lungs: Clear to auscultation bilaterally no rales or rhonchi Abdomen: Soft, nontender. Bious draiangwe from the wound resoved . Extremities: No edema no cyanosis and no clubbing. Neuro: Alert oriented Oriented x3. No focal sensory or motor deficit. Skin: No rashes no hyperemic spots Psychiatry: Euthymic. Calm. - Constitutional Vitals: Vital Signs - 12hr 07/27/17 07:52 Temperature 98.7 F Pulse Rate 105 H Respiratory 20 Rate Blood Pressure 135/82 O2 Sat by Pulse 97 Oximetry General appearance: Present: no acute distress, well-nourished - EENT Eyes: PERRL, EOM intact Ears: bilateral: normal - Neck Neck: supple, normal ROM - Respiratory Respiratory effort: normal Respiratory: bilateral: CTA - Breasts Breasts: normal - Cardiovascular Rhythm: regular Heart Sounds: Present: S1 & S2. Absent: gallop, rub Extremities: pulses intact, No edema, normal color, Full ROM - Gastrointestinal General gastrointestinal: Present: soft, non-tender, non-distended, normal bowel sounds - Genitourinary Male genitourinary: normal - Integumentary Integumentary: clear, warm, dry - Musculoskeletal Musculoskeletal: 1, strength equal bilaterally - Neurologic Neurologic: moves all extremities - Psychiatric Psychiatric: memory intact, appropriate mood/affect, intact judgment & insight - Labs CBC & Chem 7: 07/24/17 12:40 07/23/17 05:30
--- NOTE | 2017-07-27 10:41 | Progress Note ---
Assessment and Plan Assessment: 1) Severe sepsis: resolved. Etiology most likely surgical wound infection +/- intra-abdominal abscess +/- E coli bacteremia. 2) E coli bacteremia: from surgical site infection -Blood cx 5/3 E coli -Repeat blood cx no growth so far -CRP=19 3) Surgical wound infection ?dehiscence ? leak with intra-abdominal abscess vs. collection - still leaking -Wound cx 5/3 E coli and MDR Enterobacter -Ct abd showed continued or recurrent large right inguinal canal hernia extending into scrotum and possible large pelvic abscess. -Fistulogram showed positive sinus tract communicating with blind end presumedly a collection. -repeat CT showed persistent right inguinal hernia obstructing small bowel. Positive contrast to the bladder ? fistula 4) LEIGHA - better 5) Elevated ELFs - likely from sepsis 6) Recent small bowel gangrene secondary to incarcerated inguinal hernia -Status post bowel resection on 06/30 Plan: -continue meropenem D108/26 -Per surgery -will get a cystogram to r/o fistula to the bladder -contact isolation Thank you for your consultation, will follow up with you. Johana Mcqueen MD Infectious Diseases Specialist [facility] M [phone] O [phone] Subjective Date of service: 07/27/17 Principal diagnosis: Severe Sepsis; Intra-Abdominal Abscess; Gram negative bacteremia Interval history: Feels ok. No fever. Still leakage. Pt is frustrated cause he does not understand management Microbiology: Blood cultures: 5/3 E coli 5/6 neg Urine cultures: / <10K Respiratory cultures: Wound cultures: 5/3 E coli and MDR Enterobacter Stool cultures: Other: Current Antimicrobials: meropenem 5/ Previous Antimicrobials: Flagyl 5/ Vancomycin 5/ Cefepime 5/ Objective - Exam Narrative Exam: General appearance: Alert in NAD, conversant Eyes: anicteric sclerae, moist conjunctivae; no lid-lag; PERRLA HENT: Atraumatic; oropharynx clear poor dentition Neck: Trachea midline; supple, no thyromegaly or lymphadenopathy Lungs: CTA, with normal respiratory effort and no intercostal retractions CV: RRR, no murmurs Abdomen: Soft, +midline wound +right groin wound upper still minimal green leakage Extremities: No peripheral edema or extremity lymphadenopathy Skin: Normal temperature, turgor and texture; no rash, ulcers or subcutaneous nodules Psych: Appropriate affect, alert and oriented to person, place and time. Neuro: alert and oriented x 3. Moving all extermities Lines: - Constitutional Vitals: Vital Signs Temp Pulse Resp BP Pulse Ox 98.7 F 105 H 20 135/82 97 07/27/17 07:52 07/27/17 07:52 07/27/17 07:52 07/27/17 07:52 07/27/17 07:52 Temperature -Last 24 Hours Temperature 98.7 F Temperature 99.3 F Temperature 98.6 F - Labs CBC & Chem 7: 07/24/17 12:40 07/23/17 05:30
[2017-07-27] MEDS: MERREM 1,000 MG in NACL 0.9% 100 ML IV SCH ×2 (13:42→21:56)
[2017-07-27] MEDS: ZOFRAN IV SCH (17:20)
--- NOTE | 2017-07-27 17:27 | Progress Note ---
Subjective Patient Reports: Positive: no new complaints, feels better, flatus, bowel movement Narrative: Seen yesterday and tiday , CT reviewed with Dr Cox Rdiologist , noted ? abnormal Uri bladder , this was seen on the CT , recm cystogram could not be done today difficulty with the faith will do in AM , abd soft , had a huge Bm this AM . will F/U in AM . NG reinserted , still hiccuping on Zofran ,cmp in AM , Objective Vital Signs - 12hr 07/27/17 07:52 Temperature 98.7 F Pulse Rate 105 H Respiratory 20 Rate Blood Pressure 135/82 O2 Sat by Pulse 97 Oximetry - Labs 07/24/17 12:40 07/23/17 05:30
[2017-07-27] MEDS ORDERED: CLINIMIX 4.25%-5% SOLUTION 2,000 ML IV SCH (20:00)
[2017-07-28] MEDS: ZOFRAN IV SCH ×3 (00:42→17:15)
[2017-07-28] MEDS: MORPHINE IV PRN ×4 (01:47→17:12)
[2017-07-28] MEDS: MERREM 1,000 MG in NACL 0.9% 100 ML IV SCH ×3 (06:10→21:56)
[2017-07-28 07:39] LABS: Alanine Aminotransferase 23 units/L (7-56); BUN/Creatinine Ratio 26; Blood Urea Nitrogen 18 mg/dL (9-20); Calcium 8.4 mg/dL (8.4-10.2); Hemolysis Index 8
[2017-07-28 07:49] LABS: Basophils % (Auto) 0.7 % (0.0-1.8); Eosinophils # (Auto) 0.2 K/mm3 (0.0-0.4); Eosinophils % (Auto) 3.8 % (0.0-4.3); Hemoglobin 10.9 gm/dl (11.8-15.2); Lymphocytes # (Auto) 1.7 K/mm3 (1.2-5.4); Lymphocytes % (Auto) 26.4 % (13.4-35.0); Mean Corpuscular HGB Conc 34 % (32-34); Mean Corpuscular Hemoglobin 32 pg (28-32); Mean Corpuscular Volume 93 fl (84-94); Monocytes # (Auto) 0.8 K/mm3 (0.0-0.8); Monocytes % (Auto) 12.1 % (0.0-7.3); Platelet Count 279 K/mm3 (140-440); Red Blood Count 3.46 M/mm3 (3.65-5.03); Red Cell Distribution Width 14.7 % (13.2-15.2)
[2017-07-28] MEDS: PEPCID IV SCH ×3 (10:59→21:56)
[2017-07-28] MEDS: SODIUM CHLORIDE FLUSH SYRINGE 10 ML IV SCH ×2 (11:00→22:25)
[2017-07-28] MEDS: HEPARIN SUB-Q SCH ×3 (11:00→21:57)
[2017-07-28] MEDS: HABITROL TD SCH ×2 (11:00→12:46)
--- NOTE | 2017-07-28 11:29 | Fluoroscopy Report ---
FLUOROSCOPY CYSTOGRAM STATIC History: Bladder leak Findings: 12 fluoroscopic images were captured. Drum Stenciler film of the abdomen demonstrates residual oral contrast in the rectum which limits this exam. Water-soluble contrast was administered through a Trevizo catheter. The bladder is relatively low volume. There is mild trabeculation of the bladder wall but no evidence for filling defect, mass or extravasation of contrast. Impression: No bladder leak is identified.
--- NOTE | 2017-07-28 11:42 | Progress Note ---
Assessment and Plan Assessment: 1) Severe sepsis: resolved. Etiology most likely surgical wound infection +/- intra-abdominal abscess +/- E coli bacteremia. 2) E coli bacteremia: from surgical site infection -Blood cx 5/3 E coli -Repeat blood cx no growth so far -CRP=19 3) Surgical wound infection ?dehiscence ? leak with intra-abdominal abscess vs. collection - still leaking -Wound cx 5/3 E coli and MDR Enterobacter -Ct abd showed continued or recurrent large right inguinal canal hernia extending into scrotum and possible large pelvic abscess. -Fistulogram showed positive sinus tract communicating with blind end presumedly a collection. -repeat CT showed persistent right inguinal hernia obstructing small bowel. Positive contrast to the bladder ? fistula 4) LEIGHA - better 5) Elevated ELFs - likely from sepsis 6) Recent small bowel gangrene secondary to incarcerated inguinal hernia -Status post bowel resection on 06/30 Plan: -continue meropenem D109/25 -Per surgery -will get a cystogram to r/o fistula to the bladder -contact isolation Thank you for your consultation, will follow up with you. Johana Mcqeuen MD Infectious Diseases Specialist [facility] M [phone] O [phone] Subjective Date of service: 07/28/17 Principal diagnosis: Severe Sepsis; Intra-Abdominal Abscess; Gram negative bacteremia Interval history: Feels ok. No fever. Still leakage. Having persistent hiccups Microbiology: Blood cultures: /3 E coli 5/6 neg Urine cultures: /3 <10K Respiratory cultures: Wound cultures: 5/3 E coli and MDR Enterobacter Stool cultures: Other: Current Antimicrobials: meropenem 07/12 Previous Antimicrobials: Flagyl 5/ Vancomycin / Cefepime / Objective - Exam Narrative Exam: General appearance: Alert in NAD, conversant Eyes: anicteric sclerae, moist conjunctivae; no lid-lag; PERRLA HENT: Atraumatic; oropharynx clear poor dentition Neck: Trachea midline; supple, no thyromegaly or lymphadenopathy Lungs: CTA, with normal respiratory effort and no intercostal retractions CV: RRR, no murmurs Abdomen: Soft, +midline wound +right groin wound upper still minimal green leakage Extremities: No peripheral edema or extremity lymphadenopathy Skin: Normal temperature, turgor and texture; no rash, ulcers or subcutaneous nodules Psych: Appropriate affect, alert and oriented to person, place and time. Neuro: alert and oriented x 3. Moving all extermities Lines: - Constitutional Vitals: Vital Signs Temp Pulse Resp BP Pulse Ox 98.4 F 93 H 20 126/71 98 07/28/17 08:34 07/28/17 08:34 07/28/17 08:34 07/28/17 08:34 07/28/17 08:34 Temperature -Last 24 Hours Temperature 98.4 F Temperature 97.7 F Temperature 98.9 F Temperature 98.9 F - Labs CBC & Chem 7: 07/28/17 06:21 07/28/17 06:21 Labs: Abnormal lab results 07/28/17 07/28/17 Range/Units 06:21 06:21 RBC 3.46 L (3.65-5.03) M/mm3 Hgb 10.9 L (11.8-15.2) gm/dl Hct 32.0 L (35.5-45.6) % [place] % (Auto) 12.1 H (0.0-7.3) % Creatinine 0.7 L (0.8-1.5) mg/dL Glucose 105 H (75-100) mg/dL Phosphorus 1.70 L (2.5-4.5) mg/dL Albumin 3.0 L (3.9-5) g/dL
--- NOTE | 2017-07-28 13:38 | Progress Note ---
Assessment and Plan Patient is a 61 year old -[place] male who presented to the ED on account of foul smelling drainage from his surgical wound on his abdomen. The patient was discharged from the hospital yesterday after undergoing open laparotomy for a right inguinal hernia with small bowel obstruction. At the time of surgery, it was found that the patient had a gangrenous small bowel, for which he underwent partial small bowel resection. He has associated generalized abdominal pain and generalized weakness. He denies nausea, vomiting , constipation or diarrhea. No fever, chills, chest pain, shortness of breath or palpitations. On presentation the patient was started on meropenem Of Surgery Start the Patient on Conservative Management with TPN and Subsequently Transitioned to Full Liquid Which he Is Tolerating Today. If Continues to Improve Patient Discharged in A.M. Recommendation for Antibiotics As Is Documented by the Infectious Disease Physician Pelvic abscess and wound dehiscence s/p recent surgery on last admission(06/30) Continue Merrem. Vancomycin discontinued Dr. Lopez following Conservative management for now Fistulogram obtained and showed sinus tract draining intra-abdominal collection No baldder leak identified from cystogram Now reverted to NPO, TPN and NGT to low intemiteint suction Severe sepsis secondary to the pelvic abscess and bacteremia patient placed on sepsis protocol wound Culture growing Escherichia coli and MDR Enterobacter, blood cx positive for E. coli ID on board, Continue meropenem Hypotension secondary to sepsis Now resolved, BP stable. Continue iv fluids Recurrent right inguinal hernia Conservative management for now Transaminitis resolved Now resolved Will continue to monitor his liver function test levels Anemia Will monitor his H/H and transfuse if hgb < 7 Prophylaxis DVT prophylaxis with Heparin,SCD GI prophylaxis with Protonix Full code status Subjective Date of service: 07/28/17 Principal diagnosis: Severe Sepsis; Intra-Abdominal Abscess; Gram negative bacteremia Interval history: Seen and examined. c/o bilious drainage from the abdomen wound. has fistuloggram done today. No fever. No abdominal pain. No nausea no vomiting. Waiting for cardiac catheterization. Objective - Exam Narrative Exam: Constitutional: Well-nourished well-developed. In no distress Head: Normocephalic atraumatic Eyes: Pupils are equal round and reactive to light Nose: No enlarged turbinates, no septal deviation. Mouth: Moist mucous membranes. Neck: Supple no thyromegaly. No bruit. No JVD Heart: Regular rate and rhythm, S1-S2 abnormal. No rubs murmurs or gallop Lungs: Clear to auscultation bilaterally no rales or rhonchi Abdomen: Soft, nontender. Bious draiangwe from the wound . Extremities: No edema no cyanosis and no clubbing. Neuro: Alert oriented Oriented x3. No focal sensory or motor deficit. Skin: No rashes no hyperemic spots Psychiatry: Euthymic. clm. - Constitutional Vitals: Vital Signs - 12hr 07/28/17 08:34 Temperature 98.4 F Pulse Rate 93 H Respiratory 20 Rate Blood Pressure 126/71 O2 Sat by Pulse 98 Oximetry - Labs CBC & Chem 7: 07/28/17 06:21 07/28/17 06:21 Labs: Abnormal lab results 07/28/17 07/28/17 Range/Units 06:21 06:21 RBC 3.46 L (3.65-5.03) M/mm3 Hgb 10.9 L (11.8-15.2) gm/dl Hct 32.0 L (35.5-45.6) % [place] % (Auto) 12.1 H (0.0-7.3) % Creatinine 0.7 L (0.8-1.5) mg/dL Glucose 105 H (75-100) mg/dL Phosphorus 1.70 L (2.5-4.5) mg/dL Albumin 3.0 L (3.9-5) g/dL
--- NOTE | 2017-07-28 15:02 | Progress Note ---
Subjective Patient Reports: Positive: feels better, flatus, bowel movement Narrative: doing better , abd soft , hungry , NG out cystogram negative will dc faith po liq Objective Vital Signs - 12hr 07/28/17 08:34 Temperature 98.4 F Pulse Rate 93 H Respiratory 20 Rate Blood Pressure 126/71 O2 Sat by Pulse 98 Oximetry - Labs 07/28/17 06:21 07/28/17 06:21 Diabetes panel 07/28/17 Range/Units 06:21 Sodium 137 (137-145) mmol/L Potassium 4.1 (3.6-5.0) mmol/L Chloride 98.8 (98-107) mmol/L Carbon Dioxide 27 (22-30) mmol/L BUN 18 (9-20) mg/dL Creatinine 0.7 L (0.8-1.5) mg/dL Glucose 105 H (75-100) mg/dL Calcium 8.4 (8.4-10.2) mg/dL AST 21 (5-40) units/L ALT 23 (7-56) units/L Alkaline Phosphatase 126 (35-129) units/L Total Protein 7.3 (6.3-8.2) g/dL Albumin 3.0 L (3.9-5) g/dL Calcium panel 07/28/17 Range/Units 06:21 Calcium 8.4 (8.4-10.2) mg/dL Phosphorus 1.70 L (2.5-4.5) mg/dL Albumin 3.0 L (3.9-5) g/dL Pituitary panel 07/28/17 Range/Units 06:21 Sodium 137 (137-145) mmol/L Potassium 4.1 (3.6-5.0) mmol/L Chloride 98.8 (98-107) mmol/L Carbon Dioxide 27 (22-30) mmol/L BUN 18 (9-20) mg/dL Creatinine 0.7 L (0.8-1.5) mg/dL Glucose 105 H (75-100) mg/dL Calcium 8.4 (8.4-10.2) mg/dL Adrenal panel 07/28/17 Range/Units 06:21 Sodium 137 (137-145) mmol/L Potassium 4.1 (3.6-5.0) mmol/L Chloride 98.8 (98-107) mmol/L Carbon Dioxide 27 (22-30) mmol/L BUN 18 (9-20) mg/dL Creatinine 0.7 L (0.8-1.5) mg/dL Glucose 105 H (75-100) mg/dL Calcium 8.4 (8.4-10.2) mg/dL Total Bilirubin 0.40 (0.1-1.2) mg/dL AST 21 (5-40) units/L ALT 23 (7-56) units/L Alkaline Phosphatase 126 (35-129) units/L Total Protein 7.3 (6.3-8.2) g/dL Albumin 3.0 L (3.9-5) g/dL
[2017-07-28] MEDS ORDERED: TPN ADULT 2,016 ML IV SCH (20:00)
--- NOTE | 2017-07-28 23:20 | XRay Report ---
FINAL REPORT PROCEDURE: XR ABDOMEN 1V AP TECHNIQUE: Abdominal radiograph, single supine AP view. HISTORY: abdominal pain COMPARISON: 07/21/2017 FINDINGS: Bowel gas pattern:Nonobstructive pattern. Oral contrast is identified within the colon. There are multiple loops of slightly dilated gas-filled small bowel in the mid abdomen. An ileus is possible.. Masses or calcifications:None. Bony structures:No significant abnormality. Other:None. IMPRESSION: Nonspecific bowel gas pattern. Oral contrast is identified throughout colon.
[2017-07-29] MEDS: ZOFRAN IV SCH ×2 (00:55→09:02)
[2017-07-29] MEDS: MORPHINE IV PRN ×2 (04:55→12:19)
[2017-07-29] MEDS: MERREM 1,000 MG in NACL 0.9% 100 ML IV SCH ×2 (06:24→16:11)
[2017-07-29 07:44] LABS: BUN/Creatinine Ratio 40; Blood Urea Nitrogen 20 mg/dL (9-20); Calcium 8.6 mg/dL (8.4-10.2); Hemolysis Index 0
--- NOTE | 2017-07-29 11:41 | Progress Note ---
Assessment and Plan Patient is a 61 year old -[place] male who presented to the ED on account of foul smelling drainage from his surgical wound on his abdomen. The patient was discharged from the hospital yesterday after undergoing open laparotomy for a right inguinal hernia with small bowel obstruction. At the time of surgery, it was found that the patient had a gangrenous small bowel, for which he underwent partial small bowel resection. He has associated generalized abdominal pain and generalized weakness. He denies nausea, vomiting , constipation or diarrhea. No fever, chills, chest pain, shortness of breath or palpitations. On presentation the patient was started on meropenem Of Surgery Start the Patient on Conservative Management with TPN and Subsequently Transitioned to Full Liquid Which he Is Tolerating Today. If Continues to Improve Patient Discharged in A.M. Recommendation for Antibiotics As Is Documented by the Infectious Disease Physician Pelvic abscess and wound dehiscence s/p recent surgery on last admission(06/30) Continue Merrem. Vancomycin discontinued Dr. Lopez following Conservative management for now Fistulogram obtained and showed sinus tract draining intra-abdominal collection No bladder leak identified from cystogram (07/28) No obstruction indicated from Xray Abd (07/28) CT pelvis/Ab identifed persitent right inguinal hernia with reduction in size compared to 07/08 Now reverted to NPO, TPN and NGT to low intemiteint suction Severe sepsis secondary to the pelvic abscess and bacteremia patient placed on sepsis protocol wound Culture growing Escherichia coli and MDR Enterobacter, blood cx positive for E. coli ID on board, Continue meropenem Hypotension secondary to sepsis Now resolved, BP stable. Continue iv fluids Recurrent right inguinal hernia Conservative management for now Transaminitis resolved Now resolved Will continue to monitor his liver function test levels Anemia Will monitor his H/H and transfuse if hgb < 7 Improving hgb & hct Prophylaxis DVT prophylaxis with Heparin,SCD GI prophylaxis with Protonix Full code status Subjective Date of service: 07/29/17 Principal diagnosis: Severe Sepsis; Intra-Abdominal Abscess; Gram negative bacteremia Interval history: Seen and examined. c/o bilious drainage from the abdomen wound. has fistuloggram done. No fever. No abdominal pain. No nausea no vomiting. Objective - Exam Narrative Exam: Constitutional: Well-nourished well-developed. In no distress Head: Normocephalic atraumatic Eyes: Pupils are equal round and reactive to light Nose: No enlarged turbinates, no septal deviation. Mouth: Moist mucous membranes. Neck: Supple no thyromegaly. No bruit. No JVD Heart: Regular rate and rhythm, S1-S2 abnormal. No rubs murmurs or gallop Lungs: Clear to auscultation bilaterally no rales or rhonchi Abdomen: Soft, nontender. Mild bilious drainage from the wound managed with dressing Extremities: No edema no cyanosis and no clubbing. Neuro: Alert oriented Oriented x3. No focal sensory or motor deficit. Skin: No rashes no hyperemic spots Psychiatry: Euthymic. calm. - Constitutional Vitals: Vital Signs - 12hr 07/29/17 07/29/17 07/29/17 04:35 04:55 05:25 Temperature Pulse Rate Respiratory 20 20 20 Rate Blood Pressure O2 Sat by Pulse Oximetry 07/29/17 07:36 Temperature 99.1 F Pulse Rate 85 Respiratory 19 Rate Blood Pressure 104/68 O2 Sat by Pulse 100 Oximetry - Labs CBC & Chem 7: 07/28/17 06:21 07/29/17 06:30 Labs: Abnormal lab results 07/29/17 Range/Units 06:30 Sodium 134 L (137-145) mmol/L Creatinine 0.5 L (0.8-1.5) mg/dL Glucose 109 H (75-100) mg/dL
[2017-07-29] MEDS: PEPCID IV SCH (12:18)
[2017-07-29] MEDS: HEPARIN SUB-Q SCH (12:19)
[2017-07-29] MEDS: SODIUM CHLORIDE FLUSH SYRINGE 10 ML IV SCH (12:21)
[2017-07-29] MEDS: HABITROL TD SCH (12:30)
--- NOTE | 2017-07-29 14:08 | Progress Note ---
Subjective Patient Reports: Positive: feels better, tolerating liquids well, flatus, bowel movement Narrative: DOING FINE , GOOD bmS ABD SOFT HOME TDAY Objective Vital Signs - 12hr 07/29/17 07/29/17 07/29/17 04:35 04:55 05:25 Temperature Pulse Rate Respiratory 20 20 20 Rate Blood Pressure O2 Sat by Pulse Oximetry 07/29/17 07:36 Temperature 99.1 F Pulse Rate 85 Respiratory 19 Rate Blood Pressure 104/68 O2 Sat by Pulse 100 Oximetry - Labs 07/28/17 06:21 07/29/17 06:30 Diabetes panel 07/29/17 Range/Units 06:30 Sodium 134 L (137-145) mmol/L Potassium 4.1 (3.6-5.0) mmol/L Chloride 100.1 (98-107) mmol/L Carbon Dioxide 28 (22-30) mmol/L BUN 20 (9-20) mg/dL Creatinine 0.5 L (0.8-1.5) mg/dL Glucose 109 H (75-100) mg/dL Calcium 8.6 (8.4-10.2) mg/dL Calcium panel 07/29/17 Range/Units 06:30 Calcium 8.6 (8.4-10.2) mg/dL Phosphorus 2.50 D (2.5-4.5) mg/dL Pituitary panel 07/29/17 Range/Units 06:30 Sodium 134 L (137-145) mmol/L Potassium 4.1 (3.6-5.0) mmol/L Chloride 100.1 (98-107) mmol/L Carbon Dioxide 28 (22-30) mmol/L BUN 20 (9-20) mg/dL Creatinine 0.5 L (0.8-1.5) mg/dL Glucose 109 H (75-100) mg/dL Calcium 8.6 (8.4-10.2) mg/dL Adrenal panel 07/29/17 Range/Units 06:30 Sodium 134 L (137-145) mmol/L Potassium 4.1 (3.6-5.0) mmol/L Chloride 100.1 (98-107) mmol/L Carbon Dioxide 28 (22-30) mmol/L BUN 20 (9-20) mg/dL Creatinine 0.5 L (0.8-1.5) mg/dL Glucose 109 H (75-100) mg/dL Calcium 8.6 (8.4-10.2) mg/dL
[2017-07-29 18:13] VITALS: BP 124/80
[2017-07-29] MEDS ORDERED: TPN ADULT 2,016 ML IV SCH (20:00)
== END 2017-07-29 18:19 | disposition home or self-care (01) | DRG 862 ==
LOC: ED 16:38 → CC1 23:08 → 3B-SURG 07-10 19:09 → 3A 07-24 18:24
PROVIDERS: ADMIT Internal Medicine; ATTEND Family Medicine
DX: T81.4XXA Infection following a procedure, initial encounter (principal); R65.20 Severe sepsis without septic shock; K65.1 Peritoneal abscess; A41.51 Sepsis due to Escherichia coli [E. coli]; T81.31XA Disruption of external operation (surgical) wound, not elsewhere classified, initial encounter; N17.9 Acute kidney failure, unspecified; N39.0 Urinary tract infection, site not specified; E46 Unspecified protein-calorie malnutrition; F17.200 Nicotine dependence, unspecified, uncomplicated; Y83.8 Other surgical procedures as the cause of abnormal reaction of the patient, or of later complication, without mention of misadventure at the time of the procedure; Y92.9 Unspecified place or not applicable; K40.91 Unilateral inguinal hernia, without obstruction or gangrene, recurrent; J44.9 Chronic obstructive pulmonary disease, unspecified; D50.9 Iron deficiency anemia, unspecified
CPT/HCPCS: 36415; 49424; 51600; 71045; 74018; 74022; 74176; 74177; 74178; 74250; 74270; 74430; 76080; 80048; 80053; 81001; 82140; 82805; 82962; 83735; 84100; 84478; 85007; 85025; 85027; 85610; 86140; 86850; 86900; 86901; 87040; 87076; 87086; 87116; 87186; 93005; 93010; 93306; 96365; 96367; 96375; 99406; C9113; J0692; J0780; J1644; J2060; J2185; J2270; J2405; J2543; J3230; J3370; J3475; J7030; J7040; P9047; Q9958; Q9963; Q9967

== ENCOUNTER 2017-08-01 19:22 | Emergency (ER) | payer SELFPAY ==
[2017-08-01 20:00] LABS: Basophils % (Auto) 0.3 % (0.0-1.8); Eosinophils # (Auto) 0.2 K/mm3 (0.0-0.4); Eosinophils % (Auto) 1.4 % (0.0-4.3); Hematocrit 33.8 % (35.5-45.6); Hemoglobin 11.4 gm/dl (11.8-15.2); Lymphocytes # (Auto) 1.1 K/mm3 (1.2-5.4); Mean Corpuscular HGB Conc 34 % (32-34); Mean Corpuscular Hemoglobin 31 pg (28-32); Mean Corpuscular Volume 92 fl (84-94); Monocytes # (Auto) 0.7 K/mm3 (0.0-0.8); Monocytes % (Auto) 5.8 % (0.0-7.3); Platelet Count 360 K/mm3 (140-440); Red Blood Count 3.67 M/mm3 (3.65-5.03); Red Cell Distribution Width 14.3 % (13.2-15.2)
[2017-08-01 20:23] LABS: Alanine Aminotransferase 25 units/L (7-56); Albumin 3.8 g/dL (3.9-5); BUN/Creatinine Ratio 19; Blood Urea Nitrogen 17 mg/dL (9-20); Calcium 9.5 mg/dL (8.4-10.2); Hemolysis Index 3
--- NOTE | 2017-08-02 01:18 | Emergency Department Report ---
ED General Adult HPI - General Chief complaint: Medical Clearance Stated complaint: LEAKAGE FROM INCISION Time Seen by Provider: 08/01/17 23:45 Source: patient Mode of arrival: Wheelchair Limitations: No Limitations - History of Present Illness Initial comments: Patient's poor historian recently discharged with colostomy after he had a hernia with bowel obstruction and incarcerated and infarcted bowel he is here saying that his colostomy bag is leaking and is not sure if he is getting better denies fever denies nausea vomiting denies other complaints essentially states that his home nurse did not show up today to check his colostomy bag and this essentially what prompted his visit he is refusing admission at this time he says he has been having intermittent nausea vomiting but he was sent home that way is requesting food can discharge him with some nausea medicine he denies fever he denies new or worsening abdominal pain 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 but denies any no acute abdomen pain patient states he essentially just come in to see if he could have his colostomy checked -: Gradual, unknown Location: abdomen Radiation: non-radiation Quality: burning, sharp Consistency: intermittent Improves with: movement - Related Data Previous Rx's Medication Instructions Recorded Last Taken Type Cephalexin [Keflex] 500 mg PO Q12HR #6 cap 07/07/17 07/08/17 Rx Nicotine [Habitrol] 14 mg TD QDAY #30 patch 07/07/17 Unknown Rx oxyCODONE /ACETAMINOPHEN [Percocet 1 tab PO Q12H PRN #6 tablet 07/07/17 Rx 5/325] Ondansetron [Zofran Odt] 4 mg PO TID PRN #10 tab.rapdis 08/02/17 Unknown Rx Allergies Allergy/AdvReac Type Severity Reaction Status Date / Time No Known Allergies Allergy Unverified 06/29/17 14:29 ED Review of Systems ROS: Stated complaint: LEAKAGE FROM INCISION Other details as noted in HPI Comment: All other systems reviewed and negative Constitutional: denies: chills, diaphoresis, fever, malaise ENT: denies: dental pain, hearing loss, epistaxis Respiratory: denies: shortness of breath, SOB with exertion, SOB at rest, stridor Cardiovascular: denies: chest pain, palpitations, dyspnea on exertion, orthopnea , edema, syncope Gastrointestinal: nausea, vomiting. denies: abdominal pain, diarrhea, constipation, hematemesis, melena, hematochezia Neurological: denies: numbness, paresthesias, confusion Hematological/Lymphatic: denies: easy bruising, swollen glands ED Past Medical Hx - Past Medical History Previous Medical History?: Yes Hx Hypertension: No Hx Congestive Heart Failure: No Hx Diabetes: No Hx Deep Vein Thrombosis: No Hx Arthritis: No Hx Asthma: No Additional medical history: hernia - Surgical History Past Surgical History?: Yes Hx Pacemaker: No Hx Internal Defibrillator: No Additional Surgical History: Abd surgery - Social History Smoking Status: Current Every Day Smoker - Medications Home Medications: Home Medications Medication Instructions Recorded Confirmed Last Taken Type Cephalexin [Keflex] 500 mg PO Q12HR #6 cap 07/07/17 07/09/17 07/08/17 Rx Nicotine [Habitrol] 14 mg TD QDAY #30 patch 07/07/17 07/09/17 Unknown Rx oxyCODONE /ACETAMINOPHEN [Percocet 1 tab PO Q12H PRN #6 tablet 07/07/1707/08/17 Rx 5/325] Ondansetron [Zofran Odt] 4 mg PO TID PRN #10 tab.rapdis 08/02/17 Unknown Rx ED Physical Exam - General Limitations: No Limitations General appearance: alert, in no apparent distress, anxious - Head Head exam: Present: atraumatic, normocephalic - Eye Eye exam: Present: normal appearance, PERRL, EOMI - ENT ENT exam: Present: normal exam, normal orophraynx - Neck Neck exam: Present: normal inspection. Absent: tenderness, meningismus - Respiratory Respiratory exam: Present: normal lung sounds bilaterally. Absent: respiratory distress, wheezes, rales, rhonchi, stridor, chest wall tenderness, accessory muscle use - Cardiovascular Cardiovascular Exam: Present: regular rate, normal rhythm. Absent: bradycardia , tachycardia, irregular rhythm, normal heart sounds, systolic murmur, diastolic murmur, rubs, gallop - GI/Abdominal GI/Abdominal exam: Present: soft. Absent: distended, tenderness, guarding, rebound, rigid, mass, pulsatile mass - Extremities Exam Extremities exam: Present: normal inspection, normal capillary refill. Absent: pedal edema, joint swelling, calf tenderness - Back Exam Back exam: Present: normal inspection. Absent: CVA tenderness (L), muscle spasm , paraspinal tenderness, vertebral tenderness - Neurological Exam Neurological exam: Present: alert, oriented X3, CN II-XII intact. Absent: motor sensory deficit ED Course Vital Signs 08/01/17 08/02/17 08/02/17 19:36 02:38 03:05 Temperature 98.3 F Pulse Rate 115 H 114 H Respiratory 17 18 18 Rate Blood Pressure 99/60 Blood Pressure 100/57 [Right] O2 Sat by Pulse 99 99 Oximetry ED Medical Decision Making - Lab Data Result diagrams: 08/01/17 19:46 08/01/17 19:46 - Radiology Data Radiology results: report reviewed - Medical Decision Making CT report per radiologist showed nothing acute he does have chronic changes status post previous surgery. He is no acute abdomen on exam at this time. He is nontoxic or ill alert oriented 3, he is refusing admission which would only be considered because of his intermittent nausea vomiting but there is no evidence of a new or worsening obstruction he is tolerating by mouth in the ED his vital signs were stable without acute abdomen we we will therefore add an anti-medic as he is refusing admission he denies fever he denies cough he denies chest pain Critical care attestation.: If time is entered above; I have spent that time in minutes in the direct care of this critically ill patient, excluding procedure time. ED Disposition Clinical Impression: Colostomy complication Disposition: TO HOME OR SELFCARE Is pt being admited?: No Condition: Stable Instructions: Abdominal Pain (ED), Colostomy Care (ED) Additional Instructions: See her doctor in 2 days return immediately if new or alarming symptoms such as fever or worsening persistent symptoms nausea vomiting or other problems Prescriptions: Ondansetron [Zofran Odt] 4 mg PO TID PRN #10 tab.rapdis PRN Reason: Nausea And Vomiting Referrals: PRIMARY CARE,MD [Primary Care Provider] - 3-5 Days Time of Disposition: 03:19
--- NOTE | 2017-08-02 02:18 | Cat Scan Report ---
FINAL REPORT PROCEDURE: CT ABDOMEN PELVIS WO CON TECHNIQUE: Computerized axial tomography of the abdomen and pelvis was performed without intravenous contrast. This study is performed without intravascular contrast material and its sensitivity for abdominal and pelvic pathology, including neoplasms, inflammation, abscess, free fluid, thrombosis, arterial dissection and infarction, is reduced compared with a contrast enhanced study. HISTORY: pelvic abscess COMPARISON: 07/26/2017 FINDINGS: Visualized lower thorax: No significant abnormality. Liver: Normal size and attenuation. Spleen: Normal size and attenuation. Gallbladder and biliary system: Normal. Pancreas: Normal. Adrenals: Normal. Kidneys: Normal. GI tract: The stomach is slightly distended. There are multiple loops of dilated fluid and gas-filled small bowel throughout the abdomen and pelvis. Evaluation is difficult without IV and oral contrast. A moderate-sized right inguinal hernia cavity containing a loop of bowel is again noted. There is been no significant change in the size of the loop of bowel this region. This may be a rate transition zone for partial to complete small bowel obstruction this patient. There is no evidence of free fluid or free air on this study. There is a minimal amount of barium identified within the colon, this is most likely from previous barium enema by history.. Lymph nodes and mesentery: Normal. Vasculature: Normal. Bladder: Normal. Reproductive organs: Normal. Peritoneum: No free fluid. Musculoskeletal structures: No significant abnormality. Other: None. IMPRESSION: There remains multiple loops of dilated fluid and gas-filled small bowel in the mid lower abdomen extending of the pelvis. There is a large loop of bowel identified in a right inguinal hernia cavity. This has not changed. This appears to be causing a partial small bowel obstruction which has not changed. Evaluation the bowel is limited without oral and IV contrast for this study..
[2017-08-02 03:06] VITALS: BP 100/57
[2017-08-02 03:12] LABS: Bilirubin,Urine NEG (Negative); Blood,Urine NEG (Negative); Color,Urine Yellow (Yellow); Mucus,Urine 1+ /HPF; Urobilinogen,Urine < 2.0 mg/dL (<2.0)
== END 2017-08-02 03:32 | disposition home or self-care (01) ==
LOC: ED 19:22
DX: K94.09 Other complications of colostomy (principal); F17.200 Nicotine dependence, unspecified, uncomplicated
CPT/HCPCS: 36415; 74176; 80053; 81001; 85025; 87086